=== PATIENT | female | born 1940 | race Caucasian/White ===

== ENCOUNTER 2017-12-23 13:54 | Day surgery (SDC) | payer MEDICARE, OTHER, SELFPAY ==
--- NOTE | 2017-12-23 08:20 | PM.PREOP ---
Pre-operative Note Interval Note Pre-op Check: Yes History & Physical Reviewed by Physician Changes: No
[2017-12-23 14:27] VITALS: BP 141/79; PULSE 67; RESP 15; TEMP 36.6; O2SAT 98; BMI 27.1
[2017-12-23] MEDS: PROPARACAINE 0.5% OPHTH SOL 2 DROPS EYE-OP (16:38)
[2017-12-23] MEDS: TRYPAN BLUE 0.5 ML SYRINGE INJ (18:08)
[2017-12-23] MEDS: BALANCED SALT IRRIG SOLN NO.2 500 ML, EPINEPHrine 1 MG IRR (18:09)
[2017-12-23] MEDS: LIDOCAINE 2% 4 ML, BUPIVACAINE 0.5% (PF) 4 ML, HYALURONIDASE 150 UNIT INJ (18:10)
[2017-12-23] MEDS: LIDOCAINE 1% W/EPI INJ 20 ML INJ (18:10)
[2017-12-23] MEDS: PHENYLEPHRINE/LIDOCAINE VIAL (OR) 0.2 ML EYE-OP (18:12)
[2017-12-23] MEDS: TRIAMCINOLONE 50 MG/5 ML VIAL INJ (18:13)
[2017-12-23] MEDS: MOXIFLOXACIN OPHTH DROPS 3 ML BOTTLE 2 DROPS INJ (18:13)
[2017-12-23] MEDS: BALANCED SALT IRRIG SOLN NO.2 15 ML IRRIG.SOLN IRR (18:14)
[2017-12-23] MEDS: CARBACHOL 1.5 ML VIAL INJ (18:14)
[2017-12-23] MEDS: HYALURONATE SODIUM 10 MG/ML SYRINGE INJ (18:14)
[2017-12-23] MEDS: CHONDROIDTIN/SOD HYALURONATE 1.05 ML SYRINGE INTRAOCULA (18:14)
[2017-12-23] MEDS: OFLOXACIN 0.3% OPHTH 5 ML 2 DROPS EYE-LEFT (18:15)
[2017-12-23] MEDS: NEOMYCIN/POLY/DEX OPHTH OINT 1 APPLIC EYE-LEFT (18:15)
[2017-12-23 18:35] VITALS: BP 147/72; PULSE 57; RESP 14; TEMP 36.6; O2SAT 100
--- NOTE | 2017-12-23 18:58 | SUR.PHASEII ---
[address]. Instructions reviewed w/pt/spouse. Deny having any questions. Site CDI.
--- NOTE | 2017-12-23 21:37 | P.OP_ITS ---
Operative Date/Time/Diagnoses Date of procedure: 12/23/17 Time of procedure: 17:45 Procedure & Clinicians Procedure: Date of service:December 23, 2017 Preoperative diagnoses: 1. Mature cortical Cataract wit need for capsular dye. 2. Hypertension. Postoperative diagnoses: 1. Complex Cataract Procedure: Phacoemulsification with posterior chamber intraocular lens implant and use of capsular dye. Surgeon: Sarah Ordaz MD Complications:None. Specimen: None Implant:ZCBOO+20.5 Blood loss: None Anesthesia: Retrobulbar with monitored standby Anesthesiologist: Costa Gould M.D. Description of procedure: Patient is a 77 year old female with decreased vision due to cataract which is affecting activities of daily living. She wants surgery to improve vision. She was taken to the operating room and given IV sedation. A retrobulbar block consisting of 6 cc of 2% xylocaine without epinephrine mixed half and half with 0.5% Marcaine with 1 cc of hyaluronidase added is placed between the medial and lateral 1/3 of the inferior orbital rim. Lid akinesia is obtain with 1% xylocaine with epinephrine infiltrated along the lid margin. The eye is manually massaged for 30 sec, prepped using Betadine solution, and draped in the usual sterile fashion. Temporal approach was made, a 1 mm side-port incision was made at the 12 oclock meridian. Phenylephrine 1.5% mixed with 1% xylocaine 0.2 cc was placed into the anterior chamber. Poor pupillary dilation is present and viscoelastic is use to enlarge the pupil. An air bubble is placed and Visudyne dye is placed in the anterior chamber to improve visibility due to lack of a red reflex.Viscoat followed by Eleni was then placed. A 2.6 mm clear incision with a 2.6 mm blade was placed at the 3 oclock meridian. A 360 degree capsulorrhexis style capsulotomy was then performed with a cystitome needle on a Healon. Hydrodelineation and hydrodissection were performed. The phacoemulsification unit is introduced, and sculpting notice used to groove the central lens. It is then removed in chopping mode. Epi nucleus is removed with epinuclear mode and irrigation aspiration was used to remove the peripheral cortex. Viscoeleastic was use multiple times to enlarge the pupil. The posterior capsule is polished. The intraocular lens is selected, inspected, power confirmed, and placed in the posterior chamber. The pupil [] constricted. The wound was stromally hydrated and tested for leaks, there was none and was left sutureless. Vigamox 0.1 cc was placed into the anterior chamber. Kenalog 0.2 cc was placed in the superior subconjunctival space. A drop of antibiotic and was placed and the eye was patched and shielded. The patient was stable and returned to the recovery room in excellent condition. Dictated by: Sarah Ordaz MD Copy to: [facility]
== END 2017-12-23 18:56 | disposition home or self-care (01) ==
LOC: OR 13:55
PROVIDERS: PCP Family Medicine; Visit Provider Ophthalmology
DX: H25.012 Cortical age-related cataract, left eye (principal); I10 Essential (primary) hypertension
CPT/HCPCS: J0171; J2704; J3301; J3470

== ENCOUNTER 2018-01-06 08:56 | Day surgery (SDC) | payer MEDICARE, OTHER, SELFPAY ==
--- NOTE | 2018-01-06 08:15 | PM.PREOP ---
Pre-operative Note Interval Note Pre-op Check: Yes History & Physical Reviewed by Physician Changes: No
[2018-01-06 09:32] VITALS: BP 135/66; PULSE 61; RESP 15; TEMP 36.3; O2SAT 98; BMI 27.1
[2018-01-06] MEDS: PROPARACAINE 0.5% OPHTH SOL 2 DROPS EYE-OP (09:34)
[2018-01-06] MEDS: CATARACT EYE COMPOUND (10 DROPS/SYRINGE) 3 DROPS EYE-OP (09:37)
[2018-01-06] MEDS: BALANCED SALT IRRIG SOLN NO.2 15 ML IRRIG.SOLN IRR (11:15)
[2018-01-06] MEDS: CARBACHOL 1.5 ML VIAL INJ (11:15)
[2018-01-06] MEDS: CHONDROIDTIN/SOD HYALURONATE 1.05 ML SYRINGE INTRAOCULA (11:15)
[2018-01-06] MEDS: HYALURONATE SODIUM 10 MG/ML SYRINGE INJ (11:15)
[2018-01-06] MEDS: NEOMYCIN/POLY/DEX OPHTH OINT 1 APPLIC EYE-RIGHT (11:16)
[2018-01-06] MEDS: MOXIFLOXACIN OPHTH DROPS 3 ML BOTTLE 2 DROPS INJ (11:16)
[2018-01-06] MEDS: OFLOXACIN 0.3% OPHTH 5 ML 2 DROPS EYE-RIGHT (11:16)
[2018-01-06] MEDS: TRYPAN BLUE 0.5 ML SYRINGE INJ (11:17)
[2018-01-06] MEDS: TRIAMCINOLONE 50 MG/5 ML VIAL INJ (11:17)
[2018-01-06] MEDS: BALANCED SALT IRRIG SOLN NO.2 500 ML, EPINEPHrine 1 MG IRR (11:17)
[2018-01-06] MEDS: PHENYLEPHRINE/LIDOCAINE VIAL (OR) 0.2 ML EYE-OP (11:17)
[2018-01-06] MEDS: LIDOCAINE 2% 4 ML, BUPIVACAINE 0.5% (PF) 4 ML, HYALURONIDASE 150 UNIT INJ (11:18)
[2018-01-06] MEDS: LIDOCAINE 1% W/EPI INJ 20 ML INJ (11:20)
[2018-01-06 11:49] VITALS: BP 150/77; PULSE 59; RESP 16; TEMP 36.2; O2SAT 98
--- NOTE | 2018-01-06 14:35 | PM.OP.1 ---
Operative Date/Time/Diagnoses Date of procedure: 01/06/18 Time of procedure: 11:00 Procedure & Clinicians Procedure: Date of service: January 06, 2018 Preoperative diagnoses: 1. Complex Cataract with poorly dilating pupil and need for capsular dye dear 2. Hypertension. 3. 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 Postoperative diagnoses: 1. Cataract removal with phacoemulsification and use of capsular dye with placement of posterior chamber intraocular lens implant. Procedure: Phacoemulsification with posterior chamber intraocular lens implant Surgeon: Sarah Ordaz MD Complications: None Specimen: None Implant: ZCBOO+21.0 Blood loss: None Anesthesia: Retrobulbar with monitored standby Anesthesiologist: Emmett Coates M.D. Description of procedure: Patient is a 69 year old female with decreased vision due to cataract which is affecting activities of daily living. She wants surgery to improve vision. She was taken to the operating room and given IV sedation. A retrobulbar block consisting of 6 cc of 2% xylocaine without epinephrine mixed half and half with 0.5% Marcaine with 1 cc of hyaluronidase added is placed between the medial and lateral 1/3 of the inferior orbital rim. Lid akinesia is obtain with 1% xylocaine with epinephrine infiltrated along the lid margin. The eye is manually massaged for 30 sec, prepped using Betadine solution, and draped in the usual sterile fashion. Temporal approach was made, a 1 mm side-port incision was made at the 12 oclock meridian. Phenylephrine 1.5% mixed with 1% xylocaine 0.2 cc was placed into the anterior chamber. There is a poorly dilated pupil and poor red reflex as well as a corneal scar previous herpetic infection. An air bubble was placed followed by Visudyne dye. Irrigation with BSS is performed. Viscoat followed by Healon was then placed. A 2.6 mm clear incision with a 2.6 mm blade was placed at the 3 oclock meridian. A 360 degree capsulorrhexis style capsulotomy was then performed with a cystitome needle on a Healon. Hydrodelineation and hydrodissection were performed with pupil maximized with viscoelastic. The phacoemulsification unit is introduced, and sculpting notice used to groove the central lens. It is then removed in chopping mode. Epi nucleus is removed with epinuclear mode and irrigation aspiration was used to remove the peripheral cortex. The posterior capsule is polished. The intraocular lens is selected, inspected, power confirmed, and placed in the posterior chamber. The pupil was constricted. The wound was stromally hydrated and tested for leaks, there was none and was left sutureless. Vigamox 0.1 cc was placed into the anterior chamber. Kenalog 0.2 cc was placed in the superior subconjunctival space. A drop of antibiotic and was placed and the eye was patched and shielded. The patient was stable and returned to the recovery room in excellent condition. Dictated by: Sarah Ordaz MD Copy to: [facility] Same procedure as scheduled: Yes Click Yes if Unassisted: Yes
== END 2018-01-06 11:48 | disposition home or self-care (01) ==
LOC: OR 08:58
PROVIDERS: PCP Family Medicine; Visit Provider Ophthalmology
PROC: (CPT 66982; principal; 2018-01-06 10:45)
DX: H25.11 Age-related nuclear cataract, right eye (principal); I10 Essential (primary) hypertension; H17.89 Other corneal scars and opacities
CPT/HCPCS: 66982; J0171; J2704; J3301; J3470

== ENCOUNTER → 2018-02-11 10:15 | Outpatient (CLI) | payer MEDICARE, OTHER, SELFPAY ==
--- NOTE | 2018-02-11 | DI.MG.S_ITS ---
BILATERAL DIGITAL SCREENING MAMMOGRAM 3D/2D WITH CAD: 02/11/2018 CLINICAL: Routine screening. Comparison is made to exams dated: 10/23/2016 mammogram, 09/28/2015 mammogram, and 01/16/2012 mammogram - [facility]. The tissue of both breasts is extremely dense, which lowers the sensitivity of mammography. Current study was also evaluated with a Computer Aided Detection (CAD) system. No significant masses, calcifications, or other findings are seen in either breast. There has been no significant interval change. IMPRESSION: NEGATIVE There is no mammographic evidence of malignancy. A 1 year screening mammogram is recommended. This exam was interpreted at Station ID: [id number]. NOTE: For mammograms, a report in lay terms will be sent to the patient. Approximately 15% of breast malignancies will not be visualized mammographically. In the management of a palpable breast mass, a negative mammogram must not discourage biopsy of a clinically suspicious lesion. Electronically Signed By: Sebas duncan/patti:02/11/2018 17:12:20 letter sent: Normal Exam ACR BI-RADS Category 1: Negative [id number]
== END ==
PROVIDERS: PCP Family Medicine; Visit Provider Family Medicine
DX: Z12.31 Encounter for screening mammogram for malignant neoplasm of breast (principal)
CPT/HCPCS: 77063; 77067

== ENCOUNTER 2019-04-18 08:01 | Emergency (ER) | payer MEDICARE, OTHER, SELFPAY ==
--- NOTE | 2019-04-18 08:16 | DI.RAD.S_ITS ---
PROCEDURE: XR WRIST LT MIN 3V INDICATIONS: injury l wrist/ fall TECHNIQUE: 3 views of the wrist were acquired. COMPARISON: None. FINDINGS: Bones: No dislocations. No suspicious bony lesions. There is a set of complicated comminuted fractures involving the distal radius and ulna, with both impaction and dorsal angulation at the fracture margins, which extend to include the articular surfaces. Scaphoid view: No trauma the scaphoid is found but a scaphoid dedicated views not obtained. Soft tissues: No suspicious soft tissue calcifications. IMPRESSION: Complex comminuted impacted and dorsally angulated intra-articular fractures involving the distal radius and ulna. Dictated by: Arpit Del Toro M.D. on 04/18/2019 at 8:55 Approved by: Arpit Del Toro M.D. on 04/18/2019 at 8:56
[2019-04-18 08:18] VITALS: BP 165/78; PULSE 62; RESP 15; TEMP 36.6; O2SAT 98
--- NOTE | 2019-04-18 08:29 | ED_ITS ---
HPI - Extremity Injury (Upper) General Chief Complaint: Extremity Injury, Upper Stated Complaint: thinks she broke left wrist Time Seen by Provider: 04/18/19 08:28 Source: patient Mode of arrival: Ambulatory Limitations: no limitations History of Present Illness HPI narrative: Patient is a 78-year-old female who presents with left wrist pain after slipping and falling on the ice. She denies numbness and tingling she is able to move her fingers. She does have an obvious distal deformity. She does not think she hit her head she is not on any anti-platelet or anticoagulation medication. She has no neck pain. No shoulder pain. She is right-hand dominant. MD complaint: injury to: left and wrist Onset (ago): minute(s) Related Data Home Medications Medication Instructions Recorded Confirmed lisinopril [Zestril] 15 mg PO DAILY #0 04/28/11 08/06/18 atorvastatin [Lipitor] 20 mg PO DAILY 01/06/18 08/06/18 Respironics Dreamstation CPAP #1 ea 08/09/18 08/09/18 Previous Rx's Medication Instructions Recorded hydrocodone-acetaminophen [Page] 1 tab PO Q6H PRN #10 tab 04/18/19 Allergies Allergy/AdvReac Type Severity Reaction Status Date / Time No Known Drug Allergies Allergy Verified 12/23/17 14:20 Review of Systems Review of Systems Narrative: GENERAL: Denies chills,fever HEENT: Denies throat pain RESPIRATORY: Denies dyspnea, cough, wheezing CARDIOVASCULAR: Denies chest pain, palpitations GASTROINTESTINAL: Denies nausea, vomiting MUSCULOSKELETAL: See HPI SKIN: No rash, no laceration, no pruritus NEUROLOGIC: Denies weakness, dizziness, headache, numbness 8 point review of systems is negative except for those stated above and HPI Patient History Medical History Hyperlipidemia (Chronic) Hypertension (Chronic) Obstructive sleep apnea of adult (Chronic) Surgical History H/O cataract removal with insertion of prosthetic lens (Resolved) Social History marital status: details: mariam Wood, lives in [place] household members: spouse lives independently: Yes caregiver/support person: No housing: house Smoking Status: Never smoker Exam Initial Vital Signs Initial Vital Signs: Vital Signs Temperature 97.8 F 04/18/19 08:18 Pulse Rate 62 04/18/19 08:18 Respiratory Rate 15 04/18/19 08:18 Blood Pressure 165/78 H 04/18/19 08:18 Pulse Oximetry 98 04/18/19 08:18 GENERAL: Alert pleasant well-appearing female HEENT: Head atraumatic,EOMI, pupils reactive, face symmetric NECK: No vertebral tenderness no step-offs full range of motion CARDIOVASCULAR: Regular rate and rhythm without murmurs, rubs or gallops. RESPIRATORY: Breath sounds equal bilaterally, no wheezes rales or rhonchi. EXTREMITIES: Normal range of motion, no clubbing or edema. Neurovascularly intact. Left distal wrist deformity good strong radial pulse is moving fingers no elbow pain no shoulder pain or deformity no clavicle step-off NEUROLOGICAL: Alert and oriented x4.Normal gait and speech. SKIN: Warm, dry, no laceration, no petechiae, no rashes or lesions. Procedures Nerve Block Nerve Block 1: Time out performed: Yes Local Anesthetic: lidocaine 2% and with epi Amount of anesthesia used (mL): 10 Side: left Nerve Blocks: hematoma block Procedure Successful: Yes Patient Tolerated Procedure: Well Complications: none Orthopedic Fracture Reduction Fracture #1: Time Out Performed: Yes Side: left Fracture Reduction Location: radius and ulna Technique: direct manipulation Post Reduction X-rays Demonstrate: acceptable reduction Post-reduction neuro exam: intact Post-reduction vascular exam: intact Splint Applied: Yes Patient Tolerated Procedure: Well Orthopedic Splinting/Casting Injury #1: Side: left Upper Extremity Injury Location: forearm Upper Extremity Immobilizer: sling/shoulder immobilizer and sugar tong splint Post splinting neuro exam: intact Post splinting vascular exam: intact Placed by: Provider Course Orders Ordered: ED Orders 04/18/19 08:16 XR wrist LT min 3V Stat 04/18/19 09:46 XR wrist LT 2V Stat Discontinued Medications Lidocaine HCl (Xylocaine 1%) 10 ml INJ NOW ONE Stop: 04/18/19 08:54 Last Admin: 04/18/19 09:26 Dose: Not Given Documented by: BTONER Lidocaine/Epinephrine (Xylocaine 2% W/Epi) 1 ml INJ INTRA-OP ONE Stop: 04/18/19 09:23 Last Admin: 04/18/19 09:25 Dose: 1 ml Documented by: BTONER Vital Signs Vital signs: Vital Signs - 8 hr 04/18/19 08:18 04/18/19 11:11 Temperature 97.8 F Pulse Rate 62 81 Respiratory Rate 15 16 Blood Pressure 165/78 H 174/85 H Pulse Oximetry 98 99 MDM - Extremity Injury (Upper) Imaging Data Extremity x-ray #1: Radiologist's Impression: PROCEDURE: XR WRIST LT MIN 3V INDICATIONS: injury l wrist/ fall TECHNIQUE: 3 views of the wrist were acquired. COMPARISON: None. FINDINGS: Bones: No dislocations. No suspicious bony lesions. There is a set of complicated comminuted fractures involving the distal radius and ulna, with both impaction and dorsal angulation at the fracture margins, which extend to include the articular surfaces. Scaphoid view: No trauma the scaphoid is found but a scaphoid dedicated views not obtained. Soft tissues: No suspicious soft tissue calcifications. IMPRESSION: Complex comminuted impacted and dorsally angulated intra-articular fractures involving the distal radius and ulna. Dictated by: Arpit Del Toro M.D. on 04/18/2019 at 8:55 Extremity x-ray #2: Radiologist's Impression: PROCEDURE: XR WRIST LT 2V INDICATIONS: post reduction TECHNIQUE: 2 views of the wrist were acquired. COMPARISON: [facility], , XR WRIST LT MIN 3V, 04/18/2019, 8:30. FINDINGS: Mild interval improvement in the alignment of the distal radius fracture is evident, status post closed reduction. There continues to be a mild dorsal impacted distal radial metaphyseal fracture. No obvious intra-articular involvement is appreciated. The distal fracture is also evident, which is now in essentially anatomic position. Soft tissue swelling about the wrist is evident. Degenerative changes involving the basal joint of the thumb are present. IMPRESSION: Improved alignment of the distal radius and ulna fractures, status post closed reduction. Dictated by: Sacha Tony M.D. on 04/18/2019 at 9:01 Discharge Plan Departure Patient Disposition: Home Clinical Impression: Hyperlipidemia Fracture of left wrist Qualifiers: Encounter type: initial encounter Fracture type: closed Qualified Code(s): S62.102A - Fracture of unspecified carpal bone, left wrist, initial encounter for closed fracture Discharge Date/Time: 04/18/19 11:10 Instructions: DI for Distal Radius Fracture Activity Restrictions/Additional Instructions: *You have been diagnosed with left wrist fracture *What to do: There is high probability that you may require surgery. Keep arm in splint at all times, wear sling as needed. May ice 20-30 minutes at a time through the splint. *Continue to take medications as directed Tylenol 650 mg every 4-6 hours if needed for [id number] pain Page 0.5-1 tab every 6 hours if needed for severe pain especially at night *Follow up with your primary care provider in 2-3 days call orthopedics today to schedule follow-up appointment this week or next week *Return to ER if you should have increasing numbness tingling, pain not controlled unable to move fingers [or] any new, worsening or concerning symptoms CONTROLLED SUBSTANCE DISCHARGE (Narcotoic/benzodiazepine/Flexeril/Phenergan) 1. You have been prescribed narcotic medications, it does have acetaminophen/Tylenol/paracetamol in it so do not take extra Tylenol or Tylenol containing products TRAMADOL DOES NOT CONTAIN TYLENOL 2. Please understand that we cannot provide further refills of narcotics, benzodiazepines or controlled substances through the ED and her pain management will need to be through your provider. 3. While on these medications you cannot drive or operate heavy machinery. 4. You cannot sign legal documents or perform any duties such as this. 5. As long as you're taking opiate pain medications he should also be taking a stool softener such as Colace, Dulcolax, MiraLAX or prune juice, to help avoid constipation. Prescriptions: New hydrocodone-acetaminophen [Page] 5-325 mg tablet 1 tab PO Q6H PRN (Reason: pain) Qty: 10 RF: 0 No Action lisinopril [Zestril] 5 MG tablet 15 mg PO DAILY Qty: 0 RF: 0 atorvastatin [Lipitor] 20 mg Tablet 20 mg PO DAILY RF: 0 (DME) Respironics Dreamstation CPAP Qty: 1 RF: 0 Referrals: [facility] [Provider Group] Huang Dodson MD [Primary Care Provider] -
[2019-04-18] MEDS: LIDOCAINE 2% W/EPI INJ 1 ML INJ (09:25)
--- NOTE | 2019-04-18 09:46 | DI.RAD.S_ITS ---
PROCEDURE: XR WRIST LT 2V INDICATIONS: post reduction TECHNIQUE: 2 views of the wrist were acquired. COMPARISON: [facility], CR, XR WRIST LT MIN 3V, 04/18/2019, 8:30. FINDINGS: Mild interval improvement in the alignment of the distal radius fracture is evident, status post closed reduction. There continues to be a mild dorsal impacted distal radial metaphyseal fracture. No obvious intra-articular involvement is appreciated. The distal fracture is also evident, which is now in essentially anatomic position. Soft tissue swelling about the wrist is evident. Degenerative changes involving the basal joint of the thumb are present. IMPRESSION: Improved alignment of the distal radius and ulna fractures, status post closed reduction. Dictated by: Sacha Tony M.D. on 04/18/2019 at 9:01 Approved by: Sacha Tony M.D. on 04/18/2019 at 9:02
[2019-04-18 11:11] VITALS: BP 174/85; PULSE 81; RESP 16; O2SAT 99
== END 2019-04-18 11:10 | disposition home or self-care (01) ==
PROVIDERS: Emergency Provider Emergency Medicine; PCP Family Medicine
DX: S52.502A Unspecified fracture of the lower end of left radius, initial encounter for closed fracture (principal); S52.602A Unspecified fracture of lower end of left ulna, initial encounter for closed fracture; E78.5 Hyperlipidemia, unspecified; W00.0XXA Fall on same level due to ice and snow, initial encounter
CPT/HCPCS: 25605; 29125; 64450; 73100; 73110; 99284

== ENCOUNTER → 2019-04-25 09:52 | Outpatient (CLI) | payer MEDICARE, OTHER, SELFPAY ==
[2019-04-25 10:51] LABS: Add Manual Diff / Slide Review NO; Basophils Absolute Auto 0 /uL (0-100); Basophils Percent Auto 0.8 % (0-2); Eosinophils Absolute Auto 200 /uL (0-450); Eosinophils Percent Auto 3.6 % (2-4); Hematocrit 38.1 % (36-46); Hemoglobin 13.3 g/dL (12.0-16.0); Lymphocytes Absolute Auto 1900 /uL (1100-4500); Mean Corpuscular Hemoglobin 31.3 PG (26-34); Mean Corpuscular Volume 89.3 fL (80-100); Monocytes Absolute Auto 400 /uL (0-900); Monocytes Percent Auto 7.8 % (3-14); Neutrophils Absolute Auto 2800 /uL (1500-7000); Neutrophils Percent Auto 52.8 % (50-75); Platelet Count 256 X10^3/uL (150-400); Red Blood Cell Count 4.27 X10^6/uL (4.0-5.2); Red Cell Distribution Width 13.1 % (11.6-14.8); White Blood Cell Count 5.4 X10^3/uL (4.5-11.0)
== END ==
PROVIDERS: PCP Family Medicine; Visit Provider Orthopaedic Surgery Adult Reconstructive Orthopaedic Surgery
DX: Z01.812 Encounter for preprocedural laboratory examination (principal); Z01.818 Encounter for other preprocedural examination
CPT/HCPCS: 36415; 85025; 93005; 93010

== ENCOUNTER → 2020-11-26 08:40 | Outpatient (CLI) | payer MEDICARE, OTHER, SELFPAY ==
[2020-11-26 10:21] LABS: Cholesterol 199 mg/dL (140-199); HDL Cholesterol 50 mg/dL (40-60); LDL Cholesterol Calculated 114 mg/dL (<100); Triglycerides 176 mg/dL (35-150)
== END ==
PROVIDERS: PCP Family Medicine; Referring Provider Family Medicine; Visit Provider Family Medicine
DX: E78.5 Hyperlipidemia, unspecified (principal)
CPT/HCPCS: 36415; 80061

== ENCOUNTER 2021-10-07 14:03 | Emergency (ER) | payer MEDICARE, OTHER, SELFPAY ==
[2021-10-07 14:24] VITALS: BP 194/85; PULSE 73; RESP 14; TEMP 36.5; O2SAT 97; BMI 27.3
--- NOTE | 2021-10-07 14:27 | DI.RAD.S_ITS ---
PROCEDURE: XR HIP W PEL IF DONE RT 2V INDICATIONS: Right hip pain. TECHNIQUE: AP pelvis with lateral view(s) of the right hip(s). COMPARISON: None. FINDINGS: Bones: No fractures or dislocations. Moderate right hip joint osteoarthritic changes are seen. No evidence of avascular necrosis of femoral head. Pelvic ring appears intact. No suspicious bony lesions. Soft tissues: The visualized bowel gas pattern is normal. No suspicious soft tissue calcifications. IMPRESSION: Moderate right hip joint osteoarthritis. No acute fracture or dislocation. No evidence of avascular necrosis. Dictated by: Emiliano Ferrari M.D. on 10/07/2021 at 15:00 Approved by: Emiliano Ferrari M.D. on 10/07/2021 at 15:01
--- NOTE | 2021-10-07 17:11 | DI.RAD.S_ITS ---
PROCEDURE: XR LUMBAR SPINE 2-3V INDICATIONS: sciatica pain, arthrosis? TECHNIQUE: 3 views of the lumbar spine were acquired. COMPARISON: None. FINDINGS: Bones: 5 [id number] vertebrae are present. Rightward curvature of the thoracolumbar spine. There are multilevel degenerative changes. Vertebral body heights are normal. There is facet arthrosis in the lower lumbar spine. Grade 1 anterolisthesis of L4-5 and L5-S1. The aorta has atherosclerotic calcifications with no aneurysmal dilatation. Soft tissues: Overlying bowel gas pattern is normal. No suspicious soft tissue calcifications. IMPRESSION: 1. No acute abnormality. 2. Multilevel degenerative changes of the lumbar spine. 3. Facet arthrosis in the lower lumbar spine with grade 1 anterolisthesis of L4-5 and L5-S1. Dictated by: Gianni Diaz M.D. on 10/07/2021 at 16:40 Approved by: Gianni Diaz M.D. on 10/07/2021 at 16:42
[2021-10-07] MEDS: IBUPROFEN 400 MG TABLET 600 MG PO (17:18)
[2021-10-07] MEDS: HYDROCODONE/ACET 5/325 TABLET 1 TAB PO (17:18)
[2021-10-07] MEDS: ACETAMINOPHEN 325 MG TABLET PO (17:19)
[2021-10-07 18:01] VITALS: BP 166/79; PULSE 56; RESP 18; O2SAT 98
--- NOTE | 2021-10-07 18:05 | ED_ITS ---
HPI - Extremity Problem <Raven Zhao, [facility] - Last Filed: 10/07/21 19:00> General Chief complaint: Extremity Problem,Nontraumatic Stated complaint: Right hip pain Time Seen by Provider: 10/07/21 16:56 Source: patient Mode of arrival: Ambulatory History of Present Illness HPI Narrative: This is an 79-year-old female who presents to the emergency department complaining of right-sided hip pain with shooting pain across the back of her hip and the front of her groin on the right side since yesterday. 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 She denies any extension beyond her knee, states that her right leg ?when out on her ?earlier today when she was walking. She endorses having a walker and a cane at home and has been using them to ambulate since her leg has given out a few times. Patient denies any recent fall or trauma, states that earlier today she had sharp shooting pain across her hip and down her leg which caused her to fall down, she denies any injury from that fall endorses that her right leg just gave out. She denies any weakness or sensation changes at rest, states that her pain occurs at of no where, she denies any history of hip pain in the past. She endorses a history of low back pain but denies any significance to it. She states that she has been taking Tylenol 650 mg at night to help her sleep. 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 She denies any incontinence, denies any new sensation changes. Related Data Home Medications Medication Instructions Recorded Confirmed lisinopril 5 mg tablet (Zestril) 15 mg PO DAILY ##0 04/28/11 04/10/21 atorvastatin 20 mg tablet (Lipitor) 20 mg PO DAILY 01/06/18 04/10/21 Respironics Dreamstation CPAP #1 ea 08/09/18 04/10/21 Previous Rx's Medication Instructions Recorded diclofenac sodium 1 % topical gel 4 g topical QID PRN back pain/knee 10/07/21 (Arthritis Pain (diclofenac)) pain #100 grams hydrocodone 5 mg-acetaminophen 325 1 tab PO Q6HR PRN pain #14 tabs 10/07/21 mg tablet lidocaine 5 % topical patch 1 patch topical BID PRN pain #15 ea 10/07/21 (Lidoderm) Allergies Allergy/AdvReac Type Severity Reaction Status Date / Time No Known Drug Allergies Allergy Verified 10/07/21 14:24 Review of Systems <CATHY Hoffmann - Last Filed: 10/07/21 19:00> Review of Systems Narrative: General: denies fever, chills Head/Neck: denies headache, neck pain Eyes: denies visual changes, eye pain Cardio: denies chest pain, palpitations Respiratory: denies shortness of breath, cough GI: denies abdominal pain, nausea, vomiting, or diarrhea : denies dysuria, hematuria or flank pain my denies any con MSK: denies new joint pain, muscle weakness or swelling, endorses low back pain, right hip pain, sharp shooting pain from the back of her right hip across front and down her leg while walking . Skin: denies rash, itching or wound Neuro: denies numbness, tingling, dizziness Patient History <CATHY Hoffmann - Last Filed: 10/07/21 19:00> Medical History (Updated 10/07/21 @ 18:13 by CATHY Hoffmann) Hyperlipidemia Hypertension Obstructive sleep apnea of adult Surgical History H/O cataract removal with insertion of prosthetic lens Social History marital status: details: mariam Wood, lives in [place] household members: spouse lives independently: Yes caregiver/support person: No housing: house Smoking Status: Never smoker Smoking Status: Never smoker Substance Use Type: does not use Exam <CATHY Hoffmann - Last Filed: 10/07/21 19:00> Narrative Exam Narrative: Independently reviewed vitals signs and nursing notes. General: cooperative, comfortable, in no acute distress, well groomed Head: atraumatic, symmetrical facial expressions Neck: supple Eyes: equal round and reactive, EOMI, conjunctiva normal Nose: nares patent, no rhinorrhea Mouth/Throat: moist mucus membranes Cardiovascular: regular rate and rhythm, no peripheral edema, warm extremities Respiratory: normal effort, able to speak in complete sentences, no audible wheezing, stridor, or rales. No retractions or tachypnea. GI: abdomen soft, nontender to palpation, nondistended, no masses, no exquisite tenderness with exam, without guarding or rebound. MSK: moves all extremities, neurovascularly intact, no weakness, normal tone, no tenderness along her lumbar spine, tenderness to the paraspinal musculature to the right of her lumbar spine, patient is ambulatory with steady gait, no unilateral weakness Skin: brisk capillary refill, no rash, no erythema Neuro: normal speech and cognition, A&O x3 Psych: mental status is grossly normal, congruent mood, normal affect, pleasant and cooperative Initial Vital Signs Initial Vital Signs: Vital Signs Temperature 97.7 F 10/07/21 14:24 Pulse Rate 73 10/07/21 14:24 Respiratory Rate 14 10/07/21 14:24 Blood Pressure 194/85 H 10/07/21 14:24 Pulse Oximetry 97 10/07/21 14:24 Oxygen Delivery Method 10/07/21 14:24 <Ana Moore DO - Last Filed: 10/08/21 07:40> Initial Vital Signs Initial Vital Signs: Vital Signs Temperature 97.7 F 10/07/21 14:24 Pulse Rate 73 10/07/21 14:24 Respiratory Rate 14 10/07/21 14:24 Blood Pressure 194/85 H 10/07/21 14:24 Pulse Oximetry 97 10/07/21 14:24 Oxygen Delivery Method 10/07/21 14:24 Course <CATHY Hoffmann - Last Filed: 10/07/21 19:00> Orders Ordered: Discontinued Medications Acetaminophen (Acetaminophen 325 Mg Tablet) 325 mg PO NOW ONE Stop: 10/07/21 17:13 Last Admin: 10/07/21 17:19 Dose: 325 mg Documented By: AT Hydrocodone Bitart/Acetaminophen (Hydrocodone/Acet 5/325 Tablet) 1 tab PO NOW ONE Stop: 10/07/21 17:12 Last Admin: 10/07/21 17:18 Dose: 1 tab Documented By: AT Hydrocodone Bitart/Acetaminophen (Hydrocodone/Acet 5/325 Prepack) 1 bottle MISC SEEINSTR ONE Stop: 10/07/21 18:05 Last Admin: 10/07/21 18:10 Dose: 1 bottle Documented By: AT Ibuprofen (Ibuprofen 400 Mg Tablet) 600 mg PO NOW ONE Stop: 10/07/21 17:12 Last Admin: 10/07/21 17:18 Dose: 600 mg Documented By: AT Vital Signs Vital signs: Vital Signs - 8 hr 10/07/21 14:24 10/07/21 18:01 Temperature 97.7 F Pulse Rate 73 56 L Respiratory Rate 14 18 Blood Pressure 194/85 H 166/79 H Pulse Oximetry 97 98 Oxygen Delivery Method Room Air Room Air <Ana Moore DO - Last Filed: 10/08/21 07:40> Orders Ordered: Discontinued Medications Acetaminophen (Acetaminophen 325 Mg Tablet) 325 mg PO NOW ONE Stop: 10/07/21 17:13 Last Admin: 10/07/21 17:19 Dose: 325 mg Documented By: AT Hydrocodone Bitart/Acetaminophen (Hydrocodone/Acet 5/325 Tablet) 1 tab PO NOW ONE Stop: 10/07/21 17:12 Last Admin: 10/07/21 17:18 Dose: 1 tab Documented By: AT Hydrocodone Bitart/Acetaminophen (Hydrocodone/Acet 5/325 Prepack) 1 bottle MISC SEEINSTR ONE Stop: 10/07/21 18:05 Last Admin: 10/07/21 18:10 Dose: 1 bottle Documented By: AT Ibuprofen (Ibuprofen 400 Mg Tablet) 600 mg PO NOW ONE Stop: 10/07/21 17:12 Last Admin: 10/07/21 17:18 Dose: 600 mg Documented By: AT Vital Signs Vital signs: Vital Signs - 8 hr 10/07/21 14:24 10/07/21 18:01 Temperature 97.7 F Pulse Rate 73 56 L Respiratory Rate 14 18 Blood Pressure 194/85 H 166/79 H Pulse Oximetry 97 98 Oxygen Delivery Method Room Air Room Air MDM - Extremity (Nontraumatic) <CATHY Hoffmann - Last Filed: 10/07/21 19:00> Imaging Data lumbar spine: Radiologist's Impression: PROCEDURE:? XR LUMBAR SPINE 2-3V ? INDICATIONS:? sciatica pain, arthrosis? ? TECHNIQUE:? 3 views of the lumbar spine were acquired.? ? COMPARISON:? None. ? FINDINGS:? ? Bones:? 5 [id number] vertebrae are present.? Rightward curvature of the thoracolumbar spine.? There are multilevel degenerative changes.? Vertebral body heights are normal.? There is facet arthrosis in the lower lumbar spine.? Grade 1 anterolisthesis of L4-5 and L5-S1.? The aorta has atherosclerotic calcifications with no aneurysmal dilatation.? ? Soft tissues:? Overlying bowel gas pattern is normal.? No suspicious soft tissue calcifications.? ? ? IMPRESSION:? 1. No acute abnormality. 2. Multilevel degenerative changes of the lumbar spine. 3. Facet arthrosis in the lower lumbar spine with grade 1 anterolisthesis of L4- 5 and L5-S1.? ? ? Dictated by: Gianni Diaz M.D. on 10/07/2021 at 16:40 ? ? Approved by: Gianni Diaz M.D. on 10/07/2021 at 16:42 ? hip right: Radiologist's Impression: PROCEDURE:? XR HIP W PEL IF DONE RT 2V ? INDICATIONS:? Right hip pain. ? TECHNIQUE:? AP pelvis with lateral view(s) of the right hip(s).? ? COMPARISON:? None. ? FINDINGS:? ? Bones:? No fractures or dislocations.? Moderate right hip joint osteoarthritic changes are seen.? No evidence of avascular necrosis of femoral head.? Pelvic ring appears intact.? No suspicious bony lesions.? ? Soft tissues:? The visualized bowel gas pattern is normal.? No suspicious soft tissue calcifications.? ? ? IMPRESSION:? Moderate right hip joint osteoarthritis.? No acute fracture or dislocation.? No evidence of avascular necrosis. ? ? Dictated by: Emiliano Ferrari M.D. on 10/07/2021 at 15:00 ? ? Approved by: Emiliano Ferrari M.D. on 10/07/2021 at 15:01 ? MDM Narrative Medical decision making narrative: This is a pleasant 81-year-old female who presents to the emergency department with right-sided hip pain which she states started a couple days ago without any history of this in the past. 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 She does not have any help with this but insists that she must status active and does not have any days off. Hip x-ray was obtained after triage per nurse initiated order. Her hip x-ray does show moderate right hip osteoarthritis but patient's description of her pain sounded more like sciatica with radiation coming from her lumbar spine. She endorses history of low back pain but patient endorses that she has several shooting pain across the front and posterior of her right hip which sounds a lot like sciatica. She states that her legs ?went out? at least 2 times where she ended up falling down. She has been using a cane and a walker for ambulation. Discussed getting an x-ray of her lumbar spine to she knows what she is working with and how to move forward with either physical therapy, pain management, a chiropractor, or other. She has a history of seeing Dr. 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 Lumbar x-ray shows no acute abnormality, multilevel degenerative changes of the lumbar spine, facet arthrosis in the lower lumbar spine with grade 1 anterolisthesis of L4-5 and L5-S1. This is likely where her radiculopathy is coming from, she was given a copy of her x-rays that she may take with her to her chiropractor as needed. Encouraged her follow-up with primary care provider regarding pain control. She was given lidocaine patches, hydrocodone for breakthrough pain, topical diclofenac gel and encouraged to treat her pain at home with topical let gel 80s, Tylenol, ibuprofen with food and water as she has no history of GI bleeding, ulcer, or abdominal pain after ibuprofen. Patient was given hydrocodone in the emergency department without any mental status changes, weakness, or altered mentation. She has not had a new incontinence, she has had some sharp shooting pain which caused her leg to go out. Encouraged her to follow-up with PCP for physical therapy. Multiple etiologies of back pain considered including; Epidural abscess, cauda equina, mass occupying lesion, lumbar fracture, intra-abdominal pathology chronic neuropathic pain and other considered. Patient is appropriate and amenable to discharge home. Vital signs are stable on repeat examination is unremarkable. Patient has been informed of results. Patient has been given strict return to ER precautions for any new or worsening symptoms. Patient understands to follow up closely with outpatient providers as instructed. Patient understands plan and agrees to discharge home. All questions and concerns answered at this time. Discharge Plan Departure Patient Disposition: Home Clinical Impression: Sciatic leg pain, Facet arthropathy Degenerative joint disease (DJD) of lumbar spine Qualifiers: Spinal osteoarthritis complication: with radiculopathy Qualified Code(s): M47.26 - Other spondylosis with radiculopathy, lumbar region Instructions: DI for Osteoarthritis, DI for Back Pain With Sciatica Activity Restrictions/Additional Instructions: *You have been diagnosed with hip pain with sciatica symptoms. Your x-ray of your hip does show moderate amount of osteoarthritis. Anti-inflammatories like ibuprofen or the most helpful for this pain however it is not always tolerated by people's stomach. Please eat food and drink water if you are going to take ibuprofen, and take 600 mg every 6 hours. You can take Tylenol 650 mg every 6 hours as needed for your pain, it is safe to take with ibuprofen. You can take one hydrocodone every 6 hours in addition to this and still be safe. Please continue to use lidocaine patches, you can try topical Voltaren gel for your left knee or your right hip. Please follow-up with your chiropractor as planned, if you have ongoing pain, please follow-up with Dr. Mcallister for a plan moving forward. Physical therapy might be really helpful for you. Please try and stay active but don't over do it. Please be safe as your 1st priority, have a walker or a cane with you at all times or your walking if you are fearful about your leg giving out. *What to do: *Please continue to take your regular medications as directed. [x ] New medication prescriptions sent to your pharmacy: [ [facility]] [ ] New medication written as a paper prescription [ ] No new medications given *Please follow up with your primary care provider in 2-3 days, call for an appointment. Let them know you were seen in the Emergency Department and that we asked that you be seen for follow-up. We will electronically transmit a record of today's note if your PCP is in our system *If you do not have a primary care provider please contact [phone] to establish care with one of the [facility] primary care providers. *Return to Emergency Department if you should have any new, worsening or concerning symptoms, such as [fever greater than 101F, chills, worsening pain, persistent vomiting or other bothersome symptoms] Prescriptions: New hydrocodone-acetaminophen 5-325 mg tablet 1 tab PO Q6HR PRN (Reason: pain) Qty: 14 0RF diclofenac sodium [Arthritis Pain (diclofenac)] 1 % gel 4 g topical QID PRN (Reason: back pain/knee pain) Qty: 100 0RF Rx Instructions: Apply 2 g to upper extremities and 4 g to lower body up to 4 times daily. Use the applicator that it comes with for dosing. lidocaine [Lidoderm] 5 % adhesive patch,medicated 1 patch topical BID PRN (Reason: pain) Qty: 15 0RF Rx Instructions: leave on most painful area for up to 12 hrs No Action lisinopril [Zestril] 5 MG tablet 15 mg PO DAILY Qty: 0 atorvastatin [Lipitor] 20 mg Tablet 20 mg PO DAILY (DME) Respironics Dreamstation CPAP Qty: 1 Dose Instruction: As directed Label Comments: Pressure: 8-16 cmH2O DME: [facility] Rx Instructions: As directed Referrals: Jeremy Card DC [Non-Staff] - Swathi Mcallister MD [Primary Care Provider] - Visit Report Forms: Patient Portal/API <Ana Moore DO - Last Filed: 10/08/21 07:40> Cosign ED Attending Johnature Attestation: I was immediately available in the department for consultation. Documentation has been reviewed. I agree with assessment and plan.
[2021-10-07] MEDS: HYDROCODONE/ACET 5/325 PREPACK 1 BOTTLE MISC (18:10)
== END 2021-10-07 18:12 | disposition home or self-care (01) ==
PROVIDERS: Emergency Provider Nurse Practitioner Critical Care Medicine; PCP Family Medicine
DX: M54.31 Sciatica, right side (principal); M47.26 Other spondylosis with radiculopathy, lumbar region
CPT/HCPCS: 72100; 73502; 99283

== ENCOUNTER 2022-02-25 09:45 | Outpatient (RCR) | payer MEDICARE, OTHER, SELFPAY ==
--- NOTE | 2021-12-10 17:13 | PT.OIE ---
Current Diagnoses Difficulty in walking, not elsewhere classified (12/10/21) Repeated falls (12/10/21) Past Medical History (Last Reviewed 10/07/21 @ 18:09 by CATHY Hoffmann) Hyperlipidemia Hypertension Obstructive sleep apnea of adult Past Surgical History (Last Reviewed 10/07/21 @ 18:09 by CATHY Hoffmann) H/O cataract removal with insertion of prosthetic lens Visit Care Team Role Provider Type Swathi Mcallister MD Primary Care Provider Physician [facility] Address: [address] [place] [address] [place], [address] Email: [email or web address] Trevor Gomez MD Attending Provider Physician Referring Provider Specialty: [facility] Address: [address] [place] [address], [address] Email: [email or web address] Physical Therapy Initial Evaluation PT-OP-A Visit Information Start: 12/08/21 13:16 Freq: Status: Active Protocol: Document 12/10/21 16:00 AW (Rec: 12/08/21 13:28 AW [id number]) Out-Patient Physical Therapy Visit Information Visit Information Visit Type Initial Evaluation Visit Start Time 15:15 Visit Stop Time 16:00 Total Visit Minutes 45 Visit Number 04/24 Evaluation Information Evaluation Date 12/10/21 PT-OP-B Current Condition Start: 12/08/21 13:16 Freq: Status: Active Protocol: Document 12/10/21 16:00 AW (Rec: 12/08/21 13:28 AW [id number]) Current Condition History of Current Condition Onset Date September 2021 Current Complaints R leg feels unsteady, gives out History of Current Condition Susana (david Lambert) lives at [facility] with her . 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 Susana started having R hip and low back pain in September which reached a peak early October. She was seen in the ED and had imaging as below. She started using a walker due to pain and a sense of instability. She upgraded to a walking stick eventually and is now walking without a device. She now has little to no pain but states her right leg gives out on her and feels wobbly. She has been having numbness along her right medial knee. She is falling ~once per week. Prior Treatments and Tests - R hip and lumbar spine x- rays at ED on 10/07/21. R hip image shows moderate OA. Lumbar spine image shows grade 1 anterolisthesis L4-L5 and L5-S1 and multilevel degenerative changes. 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 Treatment Goals Patient/Caregiver Goals Continue to walk without assistive device. Reduce falls frequency. Increase confidence in right leg. 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 Pt is very motivated to stay active. PT-OP-C Subjective Start: 12/08/21 13:16 Freq: Status: Active Protocol: Document 12/10/21 16:00 AW (Rec: 12/10/21 16:31 AW [id number]) Patient Questionnaires ABC- Activity Specific Balance Confidence Scale ABC Score 80 ABC Functional Impairment 20 to <40% Impaired (Score 61- 80) Dizziness Handicap Inventory DHI Score not scored. scanned to EMR OP-PT Pain Assessment Pain Assessment Grid Paper Pain Assessment Grid Completed Yes: Pt reports 1/10 B knee pain PT-OP-D Balance Start: 12/08/21 13:16 Freq: Status: Active Protocol: Document 12/10/21 16:00 AW (Rec: 12/10/21 16:31 AW [id number]) Balance Tests Single Limb Standing Single Limb- Right 3 sec unsteady with UE support and + Trendelenberg Single Limb- Left 5 sec unsteady with UE support and + Trendelenberg PT-OP-E Functional Tests Start: 12/08/21 13:16 Freq: Status: Active Protocol: Document 12/10/21 16:00 AW (Rec: 12/10/21 16:31 AW [id number]) Functional Tests Dynamic Gait Index (DGI) Score 13 DGI Impairment Rating 40 to <60% Impaired (Score 10- 14) PT-OP-F Manual Assessment Start: 12/08/21 13:16 Freq: Status: Active Protocol: Document 12/10/21 16:00 AW (Rec: 12/10/21 16:39 AW [id number]) Manual Assessments Joint Mobility Assessment Joint Mobility Assessment Slight crepitus bilateral knees. Scour test negative in both hips. Good PA excursion in all lumbar segments. PT-OP-G Mobility & Gait Start: 12/08/21 13:16 Freq: Status: Active Protocol: Document 12/10/21 16:00 AW (Rec: 12/10/21 16:39 AW [id number]) OP Gait Assessment Comments Gait Comments Pt ambulates without device. She vaults over the right LE and has decreased RLE stance time. Right foot is excessively pronated and pt has reduced heelstrike bilaterally. Right hip in slight ER. Stair Climbing Evaluation Comments Stair Climbing Comments Step-to pattern with B rails. Pt does not need to navigate stairs in home environment but notes being extra cautious with patterning on curbs. PT-OP-H Neuro Start: 12/08/21 13:16 Freq: Status: Active Protocol: Document 12/10/21 16:00 AW (Rec: 12/10/21 16:39 AW [id number]) Sensation Evaluation Gross Sensation Gross Sensation Right LE Impaired Sensation Description Numbness Dermatome Impairments L4 Comments Summary Comments Numbness along right medial knee. Deep Tendon Reflex & Clonus Assessment Deep Tendon Reflex Bilateral Achilles Deep Tendon Reflex 0 Absent Bilateral Patellar Deep Tendon Reflex 1+ Diminished PT-OP-J Posture/Palpation/Skin Start: 12/08/21 13:16 Freq: Status: Active Protocol: Document 12/10/21 16:00 AW (Rec: 12/10/21 16:51 AW [id number]) Posture Evaluation Comments Posture Comments Pt has rightward curvature of the spine at T/L junction. Left iliac crest is slightly higher than right. PT-OP-K Range of Motion Start: 12/08/21 13:16 Freq: Status: Active Protocol: Document 12/10/21 16:00 AW (Rec: 12/10/21 16:51 AW [id number]) Hip Goniometric Range of Motion Hip bilat Hip ROM WFL Yes Comments HS lacking 15-20 degrees bilaterally in passive SLR. Tightness noted at end range IR R hip. IR:ER ratio is generally ~1:2. Hip ROM Limitations Hip ROM Limitations Soft Tissue Tightness,Pain Knee Goniometric Range of Motion Knee bilat Knee ROM WFL Yes PT-OP-L Special Tests Start: 12/08/21 13:16 Freq: Status: Active Protocol: Document 12/10/21 16:00 AW (Rec: 12/10/21 16:51 AW [id number]) Special Tests Lumbar Spine Special Tests Straight Leg Raise Test Results Pt unable to lift RLE without using UE's. LLE SLR is WNL. PT-OP-M Strength Start: 12/08/21 13:16 Freq: Status: Active Protocol: Document 12/10/21 16:00 AW (Rec: 12/10/21 16:51 AW [id number]) Hip Strength Hip Manual Muscle Testing Left Flexion (L2) 4 Good Extension (S1) 4- Good- Abduction 4- Good- External Rotation 4+ Good+ Internal Rotation 4+ Good+ Right Flexion (L2) 3 Fair Extension (S1) 3+ Fair+ Abduction 3+ Fair+ External Rotation 4 Good Internal Rotation 4 Good Knee Strength Knee Manual Muscle Testing Left Flexion (S2) 4+ Good+ Extension (L3) 5 Normal Right Flexion (S2) 4- Good- Extension (L3) 4- Good- Ankle/Foot Strength Ankle and Foot Manual Muscle Testing Left Dorsiflexion (L4) 5 Normal Plantarflexion (S1) 4- Good- Right Dorsiflexion (L4) 4+ Good+ Plantarflexion (S1) 4- Good- PT-OP-Q Treatments Start: 12/08/21 13:16 Freq: Status: Active Protocol: Document 12/10/21 16:00 AW (Rec: 12/10/21 17:13 AW [id number]) Self-Care/Home Management Treatment Education Other Education Presented evaluation findings and proposed a plan of care centered around lumbar and hip mobility, hip strength, and gait training to improve balance and confidence. Pt understood and agreed. PT-OP-T Assessment and Plan Start: 12/08/21 13:16 Freq: Status: Active Protocol: Document 12/10/21 16:00 AW (Rec: 12/10/21 17:13 AW [id number]) Physical Therapy Assessment Rehab Potential Rehabilitation Potential Good Evaluation Complexity Number of Personal Factors/Comorbidities 1-2 Number of Body Systems Impaired 3 Clinical Presentation at Evaluation Evolving Impairments Impairments Balance,Gait,Pain,Posture, Sensation,Strength Other Concerns Fall Risk high per DGI score Goals Three Impairment impaired dynamic balance Socket Puller Goal (LTG) Pt will improve DGI score from 13/24 to 19/24 or greater as a measure of improved balance and reduced falls risk. LTG Duration 03/05/22 Two Impairment RLE weakness Short Term Goal (STG) Pt will demonstrate single leg stance at least 10 seconds each leg without UE support and without excessive shear. STG Duration 01/21/22 Senior Care Goal (LTG) Pt will demonstrate single leg stance at least 20 seconds each leg without UE support and without excessive shear. LTG Duration 03/05/22 One Impairment lacks HEP Short Term Goal (STG) Pt will be instructed in HEP for hip mobility and LE strength to support therapy services provided in clinic STG Duration 01/21/22 Socket Puller Goal (LTG) Susana will be independent with HEP for hip mobility, LE strength, and balance to manage her symptoms LTG Duration 03/05/22 Assessment Summary Assessment Susana attends outpatient physical therapy with complaints of gait instability and right lower extremity weakness which is leading to falls. Weakness and falls began rather suddenly in September of this year. She presents with demonstrable weakness of her right lower extremity and notes numbness along medial right knee. These findings are consistent with imaging which indicates grade 1 anterolisthesis of L4-5 and L5 -S1. She is expected to benefit from skilled therapy to improve her strength and gait with the goal of improving her confidence and reducing her risk of falls. Physical Therapy Plan Frequency and Duration Frequency of Treatment 2x/Week Duration of Treatment 12 weeks Plan of Care Start Date 12/10/21 Plan of Care End Date 03/05/22 Therapeutic Interventions Therapeutic Interventions Aquatic Therapy,Balance Training,Gait Training,Home Exercise Program,Manual Therapy,Neuromuscular Re- education,Patient/Caregiver Education,Self-Care/Home Management,Soft Tissue Mobilization,Therapeutic Activities,Therapeutic Exercises Modalities Cold Pack/Ice Massage,Electric Stimulation,Hot Packs Next Visit Focus/Plan Next Note Type Treatment Note Next Visit Plan Assess 6MWT with device of choice. Initiate hip mobility, lumbar mobility, gait training with AD. May be appropriate to begin gentle strengthening R hip.
--- NOTE | 2021-12-10 17:14 | PT.OPPOC ---
Physical, Occupational & Speech Therapy At [facility] Current Diagnoses Difficulty in walking, not elsewhere classified (12/10/21) Repeated falls (12/10/21) Visit Care Team Role Provider Type Swathi Mcallister MD Primary Care Provider Physician Specialty: [facility] Address: [address] [place] [address], [address] Email: [email or web address] Trevor Gomez MD Attending Provider Physician Referring Provider Specialty: [facility] Address: [address] [place] [address], [address] Email: [email or web address] Plan Of Care PT-OP-T Assessment and Plan Start: 12/08/21 13:16 Freq: Status: Active Protocol: Document 12/10/21 16:00 AW (Rec: 12/10/21 17:13 AW [id number]) Physical Therapy Assessment Rehab Potential Rehabilitation Potential Good Evaluation Complexity Number of Personal Factors/Comorbidities 1-2 Number of Body Systems Impaired 3 Clinical Presentation at Evaluation Evolving Impairments Impairments Balance,Gait,Pain,Posture, Sensation,Strength Other Concerns Fall Risk high per DGI score 13/24 Goals Three Impairment impaired dynamic balance Program Consultant Goal (LTG) Pt will improve DGI score from 13/24 to 19/24 or greater as a measure of improved balance and reduced falls risk. LTG Duration 03/05/22 Two Impairment RLE weakness Short Term Goal (STG) Pt will demonstrate single leg stance at least 10 seconds each leg without UE support and without excessive shear. STG Duration 01/21/22 Long-Term Goal (LTG) Pt will demonstrate single leg stance at least 20 seconds each leg without UE support and without excessive shear. LTG Duration 03/05/22 One Impairment lacks HEP Short Term Goal (STG) Pt will be instructed in HEP for hip mobility and LE strength to support therapy services provided in clinic STG Duration 01/21/22 Long-Term Goal (LTG) Susana will be independent with HEP for hip mobility, LE strength, and balance to manage her symptoms LTG Duration 03/05/22 Assessment Summary Assessment Susana attends outpatient physical therapy with complaints of gait instability and right lower extremity weakness which is leading to falls. Weakness and falls began rather suddenly in September of this year. She presents with demonstrable weakness of her right lower extremity and notes numbness along medial right knee. These findings are consistent with imaging which indicates grade 1 anterolisthesis of L4-5 and L5 -S1. She is expected to benefit from skilled therapy to improve her strength and gait with the goal of improving her confidence and reducing her risk of falls. Physical Therapy Plan Frequency and Duration Frequency of Treatment 2x/Week Duration of Treatment 12 weeks Plan of Care Start Date 12/10/21 Plan of Care End Date 03/05/22 Therapeutic Interventions Therapeutic Interventions Aquatic Therapy,Balance Training,Gait Training,Home Exercise Program,Manual Therapy,Neuromuscular Re- education,Patient/Caregiver Education,Self-Care/Home Management,Soft Tissue Mobilization,Therapeutic Activities,Therapeutic Exercises Modalities Cold Pack/Ice Massage,Electric Stimulation,Hot Packs Next Visit Focus/Plan Next Note Type Treatment Note Next Visit Plan Assess 6MWT with device of choice. Initiate hip mobility, lumbar mobility, gait training with AD. May be appropriate to begin gentle strengthening R hip. Plan of Care Dates Plan of Care Start Date 12/10/21 Plan of Care End Date 03/05/22 Electronically Signed by: Cherelle Bull, ZABRINA 12/10/21 [id number] If you are in agreement with this Plan of Care, please return a signed and dated copy. I have reviewed this Plan of Care and certify that the skilled therapy services above are required to meet the patient?s needs. Physician Signature Date Printed Name and Credentials Clinical Instructor Signature Printed Name and Credentials
--- NOTE | 2021-12-12 13:56 | PT.OTN ---
Current Diagnoses Difficulty in walking, not elsewhere classified (12/12/21) Repeated falls (12/12/21) Physical Therapy Treatment Note PT-OP-A Visit Information Start: 12/08/21 13:16 Freq: Status: Active Protocol: Document 12/12/21 12:23 AW (Rec: 12/12/21 13:56 AW [id number]) Out-Patient Physical Therapy Visit Information Visit Information Visit Type Treatment Note Visit Start Time 13:00 Visit Stop Time 13:45 Total Visit Minutes 45 Visit Number 05/25 Evaluation Information Evaluation Date 12/10/21 PT-OP-B Current Condition Start: 12/08/21 13:16 Freq: Status: Active Protocol: Document 12/10/21 16:00 AW (Rec: 12/08/21 13:28 AW [id number]) Current Condition History of Current Condition Onset Date September 2021 Current Complaints R leg feels unsteady, gives out History of Current Condition Susana Lambert) lives at [facility] with her . 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 Susana started having R hip and low back pain in September which reached a peak early October. She was seen in the ED and had imaging as below. She started using a walker due to pain and a sense of instability. She upgraded to a walking stick eventually and is now walking without a device. She now has little to no pain but states her right leg gives out on her and feels wobbly. She has been having numbness along her right medial knee. She is falling ~once per week. Prior Treatments and Tests - R hip and lumbar spine x- rays at ED on 10/07/21. R hip image shows moderate OA. Lumbar spine image shows grade 1 anterolisthesis L4-L5 and L5-S1 and multilevel degenerative changes. 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 Treatment Goals Patient/Caregiver Goals Continue to walk without assistive device. Reduce falls frequency. Increase confidence in right leg. 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 Pt is very motivated to stay active. PT-OP-C Subjective Start: 12/08/21 13:16 Freq: Status: Active Protocol: Document 12/12/21 12:23 AW (Rec: 12/12/21 13:56 AW [id number]) OP-PT Subjective Patient Comments Patient Comments No falls to report. Petra worked at the [employer] three hours yesterday and feels sore/fatigued. PT-OP-D Balance Start: 12/08/21 13:16 Freq: Status: Active Protocol: Document 12/10/21 16:00 AW (Rec: 12/10/21 16:31 AW [id number]) Balance Tests Single Limb Standing Single Limb- Right 3 sec unsteady with UE support and + Trendelenberg Single Limb- Left 5 sec unsteady with UE support and + Trendelenberg PT-OP-E Functional Tests Start: 12/08/21 13:16 Freq: Status: Active Protocol: Document 12/10/21 16:00 AW (Rec: 12/10/21 16:31 AW [id number]) Functional Tests Dynamic Gait Index (DGI) Score 13 DGI Impairment Rating 40 to <60% Impaired (Score 10- 14) PT-OP-F Manual Assessment Start: 12/08/21 13:16 Freq: Status: Active Protocol: Document 12/10/21 16:00 AW (Rec: 12/10/21 16:39 AW [id number]) Manual Assessments Joint Mobility Assessment Joint Mobility Assessment Slight crepitus bilateral knees. Scour test negative in both hips. Good PA excursion in all lumbar segments. PT-OP-G Mobility & Gait Start: 12/08/21 13:16 Freq: Status: Active Protocol: Document 12/10/21 16:00 AW (Rec: 12/10/21 16:39 AW [id number]) OP Gait Assessment Comments Gait Comments Pt ambulates without device. She vaults over the right LE and has decreased RLE stance time. Right foot is excessively pronated and pt has reduced heelstrike bilaterally. Right hip in slight ER. Stair Climbing Evaluation Comments Stair Climbing Comments Step-to pattern with B rails. Pt does not need to navigate stairs in home environment but notes being extra cautious with patterning on curbs. PT-OP-H Neuro Start: 12/08/21 13:16 Freq: Status: Active Protocol: Document 12/10/21 16:00 AW (Rec: 12/10/21 16:39 AW [id number]) Sensation Evaluation Gross Sensation Gross Sensation Right LE Impaired Sensation Description Numbness Dermatome Impairments L4 Comments Summary Comments Numbness along right medial knee. Deep Tendon Reflex & Clonus Assessment Deep Tendon Reflex Bilateral Achilles Deep Tendon Reflex 0 Absent Bilateral Patellar Deep Tendon Reflex 1+ Diminished PT-OP-J Posture/Palpation/Skin Start: 12/08/21 13:16 Freq: Status: Active Protocol: Document 12/10/21 16:00 AW (Rec: 12/10/21 16:51 AW [id number]) Posture Evaluation Comments Posture Comments Pt has rightward curvature of the spine at T/L junction. Left iliac crest is slightly higher than right. PT-OP-K Range of Motion Start: 12/08/21 13:16 Freq: Status: Active Protocol: Document 12/10/21 16:00 AW (Rec: 12/10/21 16:51 AW [id number]) Hip Goniometric Range of Motion Hip bilat Hip ROM WFL Yes Comments HS lacking 15-20 degrees bilaterally in passive SLR. Tightness noted at end range IR R hip. IR:ER ratio is generally ~1:2. Hip ROM Limitations Hip ROM Limitations Soft Tissue Tightness,Pain Knee Goniometric Range of Motion Knee bilat Knee ROM WFL Yes PT-OP-L Special Tests Start: 12/08/21 13:16 Freq: Status: Active Protocol: Document 12/10/21 16:00 AW (Rec: 12/10/21 16:51 AW [id number]) Special Tests Lumbar Spine Special Tests Straight Leg Raise Test Results Pt unable to lift RLE without using UE's. LLE SLR is WNL. PT-OP-M Strength Start: 12/08/21 13:16 Freq: Status: Active Protocol: Document 12/10/21 16:00 AW (Rec: 12/10/21 16:51 AW [id number]) Hip Strength Hip Manual Muscle Testing Left Flexion (L2) 4 Good Extension (S1) 4- Good- Abduction 4- Good- External Rotation 4+ Good+ Internal Rotation 4+ Good+ Right Flexion (L2) 3 Fair Extension (S1) 3+ Fair+ Abduction 3+ Fair+ External Rotation 4 Good Internal Rotation 4 Good Knee Strength Knee Manual Muscle Testing Left Flexion (S2) 4+ Good+ Extension (L3) 5 Normal Right Flexion (S2) 4- Good- Extension (L3) 4- Good- Ankle/Foot Strength Ankle and Foot Manual Muscle Testing Left Dorsiflexion (L4) 5 Normal Plantarflexion (S1) 4- Good- Right Dorsiflexion (L4) 4+ Good+ Plantarflexion (S1) 4- Good- PT-OP-Q Treatments Start: 12/08/21 13:16 Freq: Status: Active Protocol: Document 12/12/21 12:23 AW (Rec: 12/12/21 13:56 AW [id number]) Therapeutic Exercises Supine Exercises TrA Supine Exercise Name TrA - BKFO Side bilateral Comments prepped with PPT, ANUP piriformis stretch Supine Exercise Name piriformis stretch Side bilateral Resistance opp foot planted Reps/Minutes 30 SH x 4 Comments R tighter; HEP SKTC Supine Exercise Name SKTC Side bilateral Reps/Minutes 30 SH x 4 Comments R tighter; HEP Sidelying Exercises clamshell Sidelying Exercise Name clamshell Side bilateral Resistance AROM Reps/Minutes x12 Comments HEP Other Exercises sit to stand Other Exercise Name sit to stand - no UE support Reps/Minutes x10 Comments HEP Gait Training Gait Activity SPC Device Used SPC Level of Assistance SBA Surface level Treatment Focus patterning, stability Comments Used mirror for visual feedback. SPC decreased trunk lean for improved gait mechanics and efficiency. 6MWT Device Used none Level of Assistance IND Surface level Distance/Duration 1329'/6 min Treatment Focus assessment Comments Avg gait speed 1.1 m/s. Increased antalgia without AD Self-Care/Home Management Treatment Education Patient Education Home Exercise Program Other Education Added SKTC, piriformis stretch , clamshell, and sit to stand for HEP. Advised pt to trial SPC at home for longer walks to improve stability and reduce fatigue. PT-OP-T Assessment and Plan Start: 12/08/21 13:16 Freq: Status: Active Protocol: Document 12/12/21 12:23 AW (Rec: 12/12/21 13:56 AW [id number]) Physical Therapy Assessment Goals Three Impairment impaired dynamic balance Intermediate Goal (LTG) Pt will improve DGI score from 1324 to 19/24 or greater as a measure of improved balance and reduced falls risk. LTG Duration 03/05/22 Two Impairment RLE weakness Short Term Goal (STG) Pt will demonstrate single leg stance at least 10 seconds each leg without UE support and without excessive shear. STG Duration 01/21/22 Intermediate Goal (LTG) Pt will demonstrate single leg stance at least 20 seconds each leg without UE support and without excessive shear. LTG Duration 03/05/22 One Impairment lacks HEP Short Term Goal (STG) Pt will be instructed in HEP for hip mobility and LE strength to support therapy services provided in clinic STG Duration 01/21/22 Animal Care Technician Goal (LTG) Susana will be independent with HEP for hip mobility, LE strength, and balance to manage her symptoms LTG Duration 03/05/22 Assessment Summary Assessment Susana tolerated ther ex and gait training well with no complaint of increased pain and no instance of instability . Will plan to review and progress HEP at next visit. 6MWT was completed with average gait speed of 1.1 m/s which is adequate for community ambulation without assistive device but feel pt would benefit from SPC to improve gait mechanics and efficiency. Physical Therapy Plan Frequency and Duration Frequency of Treatment 2x/Week Duration of Treatment 12 weeks Plan of Care Start Date 12/10/21 Plan of Care End Date 03/05/22 Therapeutic Interventions Therapeutic Interventions Aquatic Therapy,Balance Training,Gait Training,Home Exercise Program,Manual Therapy,Neuromuscular Re- education,Patient/Caregiver Education,Self-Care/Home Management,Soft Tissue Mobilization,Therapeutic Activities,Therapeutic Exercises Modalities Cold Pack/Ice Massage,Electric Stimulation,Hot Packs Next Visit Focus/Plan Next Note Type Treatment Note Next Visit Plan Follow up on use of SPC. Assess response to HEP and progress as able. Revisit sit to stand to correct knee drift
--- NOTE | 2021-12-16 15:19 | PT.OTN ---
Current Diagnoses Difficulty in walking, not elsewhere classified (12/16/21) Repeated falls (12/16/21) Physical Therapy Treatment Note PT-OP-A Visit Information Start: 12/08/21 13:16 Freq: Status: Active Protocol: Document 12/16/21 14:36 SP (Rec: 12/16/21 15:21 SP [id number]) Out-Patient Physical Therapy Visit Information Visit Information Visit Type Treatment Note Visit Start Time 14:36 Visit Stop Time 15:19 Total Visit Minutes 43 Visit Number 06/22 Number of CRACKER SPRAYER Visits 1 Evaluation Information Evaluation Date 12/10/21 PT-OP-B Current Condition Start: 12/08/21 13:16 Freq: Status: Active Protocol: Document 12/10/21 16:00 AW (Rec: 12/08/21 13:28 AW [id number]) Current Condition History of Current Condition Onset Date September 2021 Current Complaints R leg feels unsteady, gives out History of Current Condition Susana Lambert) lives at [facility] with her . 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 Susana started having R hip and low back pain in September which reached a peak early October. She was seen in the ED and had imaging as below. She started using a walker due to pain and a sense of instability. She upgraded to a walking stick eventually and is now walking without a device. She now has little to no pain but states her right leg gives out on her and feels wobbly. She has been having numbness along her right medial knee. She is falling ~once per week. Prior Treatments and Tests - R hip and lumbar spine x- rays at ED on 10/07/21. R hip image shows moderate OA. Lumbar spine image shows grade 1 anterolisthesis L4-L5 and L5-S1 and multilevel degenerative changes. 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 Treatment Goals Patient/Caregiver Goals Continue to walk without assistive device. Reduce falls frequency. Increase confidence in right leg. 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 Pt is very motivated to stay active. PT-OP-C Subjective Start: 12/08/21 13:16 Freq: Status: Active Protocol: Document 12/16/21 14:36 SP (Rec: 12/16/21 15:21 SP [id number]) OP-PT Subjective Patient Comments Patient Comments Pt reports little sore after last tx from new stretches but went away. Started using SPC during walks with dog and finds is helpful for stability . PT-OP-D Balance Start: 12/08/21 13:16 Freq: Status: Active Protocol: Document 12/10/21 16:00 AW (Rec: 12/10/21 16:31 AW [id number]) Balance Tests Single Limb Standing Single Limb- Right 3 sec unsteady with UE support and + Trendelenberg Single Limb- Left 5 sec unsteady with UE support and + Trendelenberg PT-OP-E Functional Tests Start: 12/08/21 13:16 Freq: Status: Active Protocol: Document 12/10/21 16:00 AW (Rec: 12/10/21 16:31 AW [id number]) Functional Tests Dynamic Gait Index (DGI) Score 13 DGI Impairment Rating 40 to <60% Impaired (Score 10- 14) PT-OP-F Manual Assessment Start: 12/08/21 13:16 Freq: Status: Active Protocol: Document 12/10/21 16:00 AW (Rec: 12/10/21 16:39 AW [id number]) Manual Assessments Joint Mobility Assessment Joint Mobility Assessment Slight crepitus bilateral knees. Scour test negative in both hips. Good PA excursion in all lumbar segments. PT-OP-G Mobility & Gait Start: 12/08/21 13:16 Freq: Status: Active Protocol: Document 12/10/21 16:00 AW (Rec: 12/10/21 16:39 AW [id number]) OP Gait Assessment Comments Gait Comments Pt ambulates without device. She vaults over the right LE and has decreased RLE stance time. Right foot is excessively pronated and pt has reduced heelstrike bilaterally. Right hip in slight ER. Stair Climbing Evaluation Comments Stair Climbing Comments Step-to pattern with B rails. Pt does not need to navigate stairs in home environment but notes being extra cautious with patterning on curbs. PT-OP-H Neuro Start: 12/08/21 13:16 Freq: Status: Active Protocol: Document 12/10/21 16:00 AW (Rec: 12/10/21 16:39 AW [id number]) Sensation Evaluation Gross Sensation Gross Sensation Right LE Impaired Sensation Description Numbness Dermatome Impairments L4 Comments Summary Comments Numbness along right medial knee. Deep Tendon Reflex & Clonus Assessment Deep Tendon Reflex Bilateral Achilles Deep Tendon Reflex 0 Absent Bilateral Patellar Deep Tendon Reflex 1+ Diminished PT-OP-J Posture/Palpation/Skin Start: 12/08/21 13:16 Freq: Status: Active Protocol: Document 12/10/21 16:00 AW (Rec: 12/10/21 16:51 AW [id number]) Posture Evaluation Comments Posture Comments Pt has rightward curvature of the spine at T/L junction. Left iliac crest is slightly higher than right. PT-OP-K Range of Motion Start: 12/08/21 13:16 Freq: Status: Active Protocol: Document 12/10/21 16:00 AW (Rec: 12/10/21 16:51 AW [id number]) Hip Goniometric Range of Motion Hip bilat Hip ROM WFL Yes Comments HS lacking 15-20 degrees bilaterally in passive SLR. Tightness noted at end range IR R hip. IR:ER ratio is generally ~1:2. Hip ROM Limitations Hip ROM Limitations Soft Tissue Tightness,Pain Knee Goniometric Range of Motion Knee bilat Knee ROM WFL Yes PT-OP-L Special Tests Start: 12/08/21 13:16 Freq: Status: Active Protocol: Document 12/10/21 16:00 AW (Rec: 12/10/21 16:51 AW [id number]) Special Tests Lumbar Spine Special Tests Straight Leg Raise Test Results Pt unable to lift RLE without using UE's. LLE SLR is WNL. PT-OP-M Strength Start: 12/08/21 13:16 Freq: Status: Active Protocol: Document 12/10/21 16:00 AW (Rec: 12/10/21 16:51 AW [id number]) Hip Strength Hip Manual Muscle Testing Left Flexion (L2) 4 Good Extension (S1) 4- Good- Abduction 4- Good- External Rotation 4+ Good+ Internal Rotation 4+ Good+ Right Flexion (L2) 3 Fair Extension (S1) 3+ Fair+ Abduction 3+ Fair+ External Rotation 4 Good Internal Rotation 4 Good Knee Strength Knee Manual Muscle Testing Left Flexion (S2) 4+ Good+ Extension (L3) 5 Normal Right Flexion (S2) 4- Good- Extension (L3) 4- Good- Ankle/Foot Strength Ankle and Foot Manual Muscle Testing Left Dorsiflexion (L4) 5 Normal Plantarflexion (S1) 4- Good- Right Dorsiflexion (L4) 4+ Good+ Plantarflexion (S1) 4- Good- PT-OP-Q Treatments Start: 12/08/21 13:16 Freq: Status: Active Protocol: Document 12/16/21 14:36 SP (Rec: 12/16/21 15:21 SP [id number]) Therapeutic Exercises Supine Exercises Al stretch Supine Exercise Name added to HEP Side bilateral Reps/Minutes 2 x30 Comments cued TA awareness so no LB recruit/arch- good response TrA Supine Exercise Name 1. TrA, 2. SL alternating june, 3. BKFO Side bilateral Comments cued slow pacing, level pelvis not rock wording best piriformis stretch Supine Exercise Name piriformis stretch- opp LE straight Side bilateral Resistance opp foot planted Reps/Minutes 30 SH x 4 Comments R anterior hip pinch with opp knee bent modify opp straight- good PF str R SKTC Supine Exercise Name SKTC-HEP Side bilateral Reps/Minutes 30 SH x 4 Comments R tighter- good feedback stretch if slow so no cramp TFL quick Sidelying Exercises hip abd Sidelying Exercise Name added to HEP Side right Equipment Used pillow between BLEs Reps/Minutes x10 reps Comments cued stacked shld, hips, quad knee ext, lead heel- good abd fac response clamshell Sidelying Exercise Name clamshell- HEP review- hold for now Side bilateral Resistance AROM Reps/Minutes x12 Comments challenged inhibiting TLF recruitment Sitting Exercises self STMs Sitting Exercise Name added to HEP: calf, quad, HS, adductor, ITB Side bilateral Reps/Minutes 2 min total Comments good feedback Other Exercises sit to stand Other Exercise Name sit to stand - arms across chest Reps/Minutes x10 Comments cued feet back underneath, slow eccentric control- limited L knee/ankle Manual Therapy Treatment Soft Tissue Mobilization R LE Body Location R quad, TFL Mobilization Type Cross-Friction,Strumming Intensity/Depth Moderate Body Position Hooklying Comments manual and instructed self use rolling pin, compliment stretching. Self-Care/Home Management Treatment Education Patient Education Home Exercise Program Other Education added self STMs with rolling pin, al stretch for decrease TFL and quad tension, modified PF stretch with opp LE extension for for no anterior hip pinching onR, sidelying hip abd better hip abd facilitation vs clamshell (more TFL recruitment). Ed for hip abd during STS, address more next time. PT-OP-T Assessment and Plan Start: 12/08/21 13:16 Freq: Status: Active Protocol: Document 12/16/21 14:36 SP (Rec: 12/16/21 15:21 SP [id number]) Physical Therapy Assessment Goals Three Impairment impaired dynamic balance Senior Living Goal (LTG) Pt will improve DGI score from to or greater as a measure of improved balance and reduced falls risk. LTG Duration 03/05/22 Two Impairment RLE weakness Short Term Goal (STG) Pt will demonstrate single leg stance at least 10 seconds each leg without UE support and without excessive shear. STG Duration 01/21/22 Senior Living Goal (LTG) Pt will demonstrate single leg stance at least 20 seconds each leg without UE support and without excessive shear. LTG Duration 03/05/22 One Impairment lacks HEP Short Term Goal (STG) Pt will be instructed in HEP for hip mobility and LE strength to support therapy services provided in clinic 12/16/21: added self STMs w/ rolling pin, al stretch, hip abd on side, STS, supine stretches, BKFO. STG Duration 01/21/22 progressing 12/16/21 Deputy Sheriff Custody Goal (LTG) Susana will be independent with HEP for hip mobility, LE strength, and balance to manage her symptoms LTG Duration 03/05/22 Assessment Summary Assessment Pt improved core and L hip abd facilitation this tx. Added and made modifications in stretches to decrease R hip tightness. Instructed self STMs for added flexibility. Noted end tx has tight L calf during STS and possible flexion ROM L knee, unable to complete more DF for feet underneath her, performs heel elevated so has to weight shift more forward and afraid migh fall. Physical Therapy Plan Frequency and Duration Frequency of Treatment 2x/Week Duration of Treatment 12 weeks Plan of Care Start Date 12/10/21 Plan of Care End Date 03/05/22 Therapeutic Interventions Therapeutic Interventions Aquatic Therapy,Balance Training,Gait Training,Home Exercise Program,Manual Therapy,Neuromuscular Re- education,Patient/Caregiver Education,Self-Care/Home Management,Soft Tissue Mobilization,Therapeutic Activities,Therapeutic Exercises Modalities Cold Pack/Ice Massage,Electric Stimulation,Hot Packs Next Visit Focus/Plan Next Note Type Treatment Note Next Visit Plan Add DF flexibility: calf stretch, manual and review rolling pin to quad, calf for increase Lknee flexion and ankle DF. POC: Follow up on use of SPC. Assess response to HEP and progress as able. Revisit sit to stand to correct knee drift into adducted.
--- NOTE | 2021-12-18 15:21 | PT.OTN ---
Current Diagnoses Difficulty in walking, not elsewhere classified (12/18/21) Repeated falls (12/18/21) Physical Therapy Treatment Note PT-OP-A Visit Information Start: 12/08/21 13:16 Freq: Status: Active Protocol: Document 12/18/21 13:48 AW (Rec: 12/18/21 14:34 AW [id number]) Out-Patient Physical Therapy Visit Information Visit Information Visit Type Treatment Note Visit Start Time 13:45 Visit Stop Time 14:20 Total Visit Minutes 40 Visit Number 07/23 Evaluation Information Evaluation Date 12/10/21 PT-OP-B Current Condition Start: 12/08/21 13:16 Freq: Status: Active Protocol: Document 12/10/21 16:00 AW (Rec: 12/08/21 13:28 AW [id number]) Current Condition History of Current Condition Onset Date September 2021 Current Complaints R leg feels unsteady, gives out History of Current Condition Susana Lambert) lives at [facility] with her . 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 Susana started having R hip and low back pain in September which reached a peak early October. She was seen in the ED and had imaging as below. She started using a walker due to pain and a sense of instability. She upgraded to a walking stick eventually and is now walking without a device. She now has little to no pain but states her right leg gives out on her and feels wobbly. She has been having numbness along her right medial knee. She is falling ~once per week. Prior Treatments and Tests - R hip and lumbar spine x- rays at ED on 10/07/21. R hip image shows moderate OA. Lumbar spine image shows grade 1 anterolisthesis L4-L5 and L5-S1 and multilevel degenerative changes. 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 Treatment Goals Patient/Caregiver Goals Continue to walk without assistive device. Reduce falls frequency. Increase confidence in right leg. 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 Pt is very motivated to stay active. PT-OP-C Subjective Start: 12/08/21 13:16 Freq: Status: Active Protocol: Document 12/18/21 13:48 AW (Rec: 12/18/21 14:34 AW [id number]) OP-PT Subjective Patient Comments Patient Comments Had right leg merari horse last night doing supine exercises but quickly resolved . Feels good about using a cane for walking the dog. 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 PT-OP-D Balance Start: 12/08/21 13:16 Freq: Status: Active Protocol: Document 12/10/21 16:00 AW (Rec: 12/10/21 16:31 AW [id number]) Balance Tests Single Limb Standing Single Limb- Right 3 sec unsteady with UE support and + Trendelenberg Single Limb- Left 5 sec unsteady with UE support and + Trendelenberg PT-OP-E Functional Tests Start: 12/08/21 13:16 Freq: Status: Active Protocol: Document 12/10/21 16:00 AW (Rec: 12/10/21 16:31 AW [id number]) Functional Tests Dynamic Gait Index (DGI) Score 13 DGI Impairment Rating 40 to <60% Impaired (Score 10- 14) PT-OP-F Manual Assessment Start: 12/08/21 13:16 Freq: Status: Active Protocol: Document 12/10/21 16:00 AW (Rec: 12/10/21 16:39 AW [id number]) Manual Assessments Joint Mobility Assessment Joint Mobility Assessment Slight crepitus bilateral knees. Scour test negative in both hips. Good PA excursion in all lumbar segments. PT-OP-G Mobility & Gait Start: 12/08/21 13:16 Freq: Status: Active Protocol: Document 12/10/21 16:00 AW (Rec: 12/10/21 16:39 AW [id number]) OP Gait Assessment Comments Gait Comments Pt ambulates without device. She vaults over the right LE and has decreased RLE stance time. Right foot is excessively pronated and pt has reduced heelstrike bilaterally. Right hip in slight ER. Stair Climbing Evaluation Comments Stair Climbing Comments Step-to pattern with B rails. Pt does not need to navigate stairs in home environment but notes being extra cautious with patterning on curbs. PT-OP-H Neuro Start: 12/08/21 13:16 Freq: Status: Active Protocol: Document 12/10/21 16:00 AW (Rec: 12/10/21 16:39 AW [id number]) Sensation Evaluation Gross Sensation Gross Sensation Right LE Impaired Sensation Description Numbness Dermatome Impairments L4 Comments Summary Comments Numbness along right medial knee. Deep Tendon Reflex & Clonus Assessment Deep Tendon Reflex Bilateral Achilles Deep Tendon Reflex 0 Absent Bilateral Patellar Deep Tendon Reflex 1+ Diminished PT-OP-J Posture/Palpation/Skin Start: 12/08/21 13:16 Freq: Status: Active Protocol: Document 12/10/21 16:00 AW (Rec: 12/10/21 16:51 AW [id number]) Posture Evaluation Comments Posture Comments Pt has rightward curvature of the spine at T/L junction. Left iliac crest is slightly higher than right. PT-OP-K Range of Motion Start: 12/08/21 13:16 Freq: Status: Active Protocol: Document 12/10/21 16:00 AW (Rec: 12/10/21 16:51 AW [id number]) Hip Goniometric Range of Motion Hip bilat Hip ROM WFL Yes Comments HS lacking 15-20 degrees bilaterally in passive SLR. Tightness noted at end range IR R hip. IR:ER ratio is generally ~1:2. Hip ROM Limitations Hip ROM Limitations Soft Tissue Tightness,Pain Knee Goniometric Range of Motion Knee bilat Knee ROM WFL Yes PT-OP-L Special Tests Start: 12/08/21 13:16 Freq: Status: Active Protocol: Document 12/10/21 16:00 AW (Rec: 12/10/21 16:51 AW [id number]) Special Tests Lumbar Spine Special Tests Straight Leg Raise Test Results Pt unable to lift RLE without using UE's. LLE SLR is WNL. PT-OP-M Strength Start: 12/08/21 13:16 Freq: Status: Active Protocol: Document 12/10/21 16:00 AW (Rec: 12/10/21 16:51 AW [id number]) Hip Strength Hip Manual Muscle Testing Left Flexion (L2) 4 Good Extension (S1) 4- Good- Abduction 4- Good- External Rotation 4+ Good+ Internal Rotation 4+ Good+ Right Flexion (L2) 3 Fair Extension (S1) 3+ Fair+ Abduction 3+ Fair+ External Rotation 4 Good Internal Rotation 4 Good Knee Strength Knee Manual Muscle Testing Left Flexion (S2) 4+ Good+ Extension (L3) 5 Normal Right Flexion (S2) 4- Good- Extension (L3) 4- Good- Ankle/Foot Strength Ankle and Foot Manual Muscle Testing Left Dorsiflexion (L4) 5 Normal Plantarflexion (S1) 4- Good- Right Dorsiflexion (L4) 4+ Good+ Plantarflexion (S1) 4- Good- PT-OP-Q Treatments Start: 12/08/21 13:16 Freq: Status: Active Protocol: Document 12/18/21 13:48 AW (Rec: 12/18/21 14:34 AW [id number]) Cardio Equipment Recumbent Elliptical ([employer]) Duration (Minutes) 5 Resistance 3 Seat Position 5 seen Other pt maintains 50-60 rpm Therapeutic Exercises Supine Exercises Al stretch Supine Exercise Name HEP review Side bilateral Reps/Minutes 2 x30 Comments cued TA awareness so no LB recruit/arch- good response TrA Supine Exercise Name 1. TrA, 2. SL alternating june, 3. BKFO Side bilateral Comments cued slow pacing, level pelvis not rock wording best SKTC Supine Exercise Name SKTC-HEP Side bilateral Reps/Minutes 30 SH x 4 Comments R tighter- good feedback stretch if slow so no cramp TFL quick Sidelying Exercises hip abd Sidelying Exercise Name HEP review Side bilateral Equipment Used pillow between BLEs Reps/Minutes 2x15 reps Comments cued stacked shld, hips, quad knee ext, lead heel- good abd fac response Standing Exercises gastroc stretch Standing Exercise Name gastroc stretch Side bilateral Equipment Used [place], then at wall for HEP Comments HEP Other Exercises sit to stand Other Exercise Name sit to stand - arms across chest Equipment Used TB1 at knees for biofeedback hip rotation Reps/Minutes 2x8 Comments cued feet back underneath, slow eccentric control- limited L knee/ankle Manual Therapy Treatment Soft Tissue Mobilization R LE Body Location R quad, TFL Mobilization Type Cross-Friction,Strumming Intensity/Depth Moderate Body Position Hooklying Comments Pt has not yet found her rolling pin. Still looking. Advise next visit to consider [employer]. Self-Care/Home Management Treatment Education Patient Education Home Exercise Program Other Education added gastroc stretch PT-OP-T Assessment and Plan Start: 12/08/21 13:16 Freq: Status: Active Protocol: Document 12/18/21 13:48 AW (Rec: 12/18/21 14:34 AW [id number]) Physical Therapy Assessment Goals Three Impairment impaired dynamic balance Intermediate Goal (LTG) Pt will improve DGI score from 13/24 to 19/24 or greater as a measure of improved balance and reduced falls risk. LTG Duration 03/05/22 Two Impairment RLE weakness Short Term Goal (STG) Pt will demonstrate single leg stance at least 10 seconds each leg without UE support and without excessive shear. STG Duration 01/21/22 Intermediate Goal (LTG) Pt will demonstrate single leg stance at least 20 seconds each leg without UE support and without excessive shear. LTG Duration 03/05/22 One Impairment lacks HEP Short Term Goal (STG) Pt will be instructed in HEP for hip mobility and LE strength to support therapy services provided in clinic 12/16/21: added self STMs w/ rolling pin, al stretch, hip abd on side, STS, supine stretches, BKFO. STG Duration 01/21/22 progressing 12/16/21 Intermediate Goal (LTG) Susana will be independent with HEP for hip mobility, LE strength, and balance to manage her symptoms LTG Duration 03/05/22 Assessment Summary Assessment Susana was better able to facilitate hip abduction in sit to stand with band at knees. She does report some left knee pain which is chronic but manageable. Using a cane while walking the dog has been very helpful. Physical Therapy Plan Frequency and Duration Frequency of Treatment 2x/Week Duration of Treatment 12 weeks Plan of Care Start Date 12/10/21 Plan of Care End Date 03/05/22 Therapeutic Interventions Therapeutic Interventions Aquatic Therapy,Balance Training,Gait Training,Home Exercise Program,Manual Therapy,Neuromuscular Re- education,Patient/Caregiver Education,Self-Care/Home Management,Soft Tissue Mobilization,Therapeutic Activities,Therapeutic Exercises Modalities Cold Pack/Ice Massage,Electric Stimulation,Hot Packs Next Visit Focus/Plan Next Note Type Treatment Note Next Visit Plan Review DF flexibility: calf stretch, manual and review rolling pin to quad, calf for increase Lknee flexion and ankle DF. POC: Follow up on use of SPC. Assess response to HEP and progress as able. Revisit sit to stand to correct knee drift into adducted.
--- NOTE | 2021-12-24 11:40 | PT.OTN ---
Current Diagnoses Difficulty in walking, not elsewhere classified (12/24/21) Repeated falls (12/24/21) Physical Therapy Treatment Note PT-OP-A Visit Information Start: 12/08/21 13:16 Freq: Status: Active Protocol: Document 12/24/21 09:52 NBM (Rec: 12/24/21 10:34 NBM [id number]) Out-Patient Physical Therapy Visit Information Visit Information Visit Type Treatment Note Visit Start Time 09:47 Visit Stop Time 10:31 Total Visit Minutes 44 Visit Number 08/22 PT-OP-B Current Condition Start: 12/08/21 13:16 Freq: Status: Active Protocol: Document 12/10/21 16:00 AW (Rec: 12/08/21 13:28 AW [id number]) Current Condition History of Current Condition Onset Date September 2021 Current Complaints R leg feels unsteady, gives out History of Current Condition Susana Lambert) lives at [facility] with her . 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 Susana started having R hip and low back pain in September which reached a peak early October. She was seen in the ED and had imaging as below. She started using a walker due to pain and a sense of instability. She upgraded to a walking stick eventually and is now walking without a device. She now has little to no pain but states her right leg gives out on her and feels wobbly. She has been having numbness along her right medial knee. She is falling ~once per week. Prior Treatments and Tests - R hip and lumbar spine x- rays at ED on 10/07/21. R hip image shows moderate OA. Lumbar spine image shows grade 1 anterolisthesis L4-L5 and L5-S1 and multilevel degenerative changes. 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 Treatment Goals Patient/Caregiver Goals Continue to walk without assistive device. Reduce falls frequency. Increase confidence in right leg. 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 Pt is very motivated to stay active. PT-OP-C Subjective Start: 12/08/21 13:16 Freq: Status: Active Protocol: Document 12/24/21 09:52 NBM (Rec: 12/24/21 10:34 NBM [id number]) OP-PT Subjective Patient Comments Patient Comments Pt reports she is improving. She is no longer using a cane walking the dog because she feels pretty secure. She usually walks two blocks but walked one last night due to pain in her R hip. She notices she is especially tired by the end of the day and hasn't been doing her exercises every day because of being busy. Pt has been averaging 4700 steps , but last two days was over 5 ,000. PT-OP-D Balance Start: 12/08/21 13:16 Freq: Status: Active Protocol: Document 12/10/21 16:00 AW (Rec: 12/10/21 16:31 AW [id number]) Balance Tests Single Limb Standing Single Limb- Right 3 sec unsteady with UE support and + Trendelenberg Single Limb- Left 5 sec unsteady with UE support and + Trendelenberg PT-OP-E Functional Tests Start: 12/08/21 13:16 Freq: Status: Active Protocol: Document 12/10/21 16:00 AW (Rec: 12/10/21 16:31 AW [id number]) Functional Tests Dynamic Gait Index (DGI) Score 13 DGI Impairment Rating 40 to <60% Impaired (Score 10- 14) PT-OP-F Manual Assessment Start: 12/08/21 13:16 Freq: Status: Active Protocol: Document 12/10/21 16:00 AW (Rec: 12/10/21 16:39 AW [id number]) Manual Assessments Joint Mobility Assessment Joint Mobility Assessment Slight crepitus bilateral knees. Scour test negative in both hips. Good PA excursion in all lumbar segments. PT-OP-G Mobility & Gait Start: 12/08/21 13:16 Freq: Status: Active Protocol: Document 12/10/21 16:00 AW (Rec: 12/10/21 16:39 AW [id number]) OP Gait Assessment Comments Gait Comments Pt ambulates without device. She vaults over the right LE and has decreased RLE stance time. Right foot is excessively pronated and pt has reduced heelstrike bilaterally. Right hip in slight ER. Stair Climbing Evaluation Comments Stair Climbing Comments Step-to pattern with B rails. Pt does not need to navigate stairs in home environment but notes being extra cautious with patterning on curbs. PT-OP-H Neuro Start: 12/08/21 13:16 Freq: Status: Active Protocol: Document 12/10/21 16:00 AW (Rec: 12/10/21 16:39 AW [id number]) Sensation Evaluation Gross Sensation Gross Sensation Right LE Impaired Sensation Description Numbness Dermatome Impairments L4 Comments Summary Comments Numbness along right medial knee. Deep Tendon Reflex & Clonus Assessment Deep Tendon Reflex Bilateral Achilles Deep Tendon Reflex 0 Absent Bilateral Patellar Deep Tendon Reflex 1+ Diminished PT-OP-J Posture/Palpation/Skin Start: 12/08/21 13:16 Freq: Status: Active Protocol: Document 12/10/21 16:00 AW (Rec: 12/10/21 16:51 AW [id number]) Posture Evaluation Comments Posture Comments Pt has rightward curvature of the spine at T/L junction. Left iliac crest is slightly higher than right. PT-OP-K Range of Motion Start: 12/08/21 13:16 Freq: Status: Active Protocol: Document 12/10/21 16:00 AW (Rec: 12/10/21 16:51 AW [id number]) Hip Goniometric Range of Motion Hip bilat Hip ROM WFL Yes Comments HS lacking 15-20 degrees bilaterally in passive SLR. Tightness noted at end range IR R hip. IR:ER ratio is generally ~1:2. Hip ROM Limitations Hip ROM Limitations Soft Tissue Tightness,Pain Knee Goniometric Range of Motion Knee bilat Knee ROM WFL Yes PT-OP-L Special Tests Start: 12/08/21 13:16 Freq: Status: Active Protocol: Document 12/10/21 16:00 AW (Rec: 12/10/21 16:51 AW [id number]) Special Tests Lumbar Spine Special Tests Straight Leg Raise Test Results Pt unable to lift RLE without using UE's. LLE SLR is WNL. PT-OP-M Strength Start: 12/08/21 13:16 Freq: Status: Active Protocol: Document 12/10/21 16:00 AW (Rec: 12/10/21 16:51 AW [id number]) Hip Strength Hip Manual Muscle Testing Left Flexion (L2) 4 Good Extension (S1) 4- Good- Abduction 4- Good- External Rotation 4+ Good+ Internal Rotation 4+ Good+ Right Flexion (L2) 3 Fair Extension (S1) 3+ Fair+ Abduction 3+ Fair+ External Rotation 4 Good Internal Rotation 4 Good Knee Strength Knee Manual Muscle Testing Left Flexion (S2) 4+ Good+ Extension (L3) 5 Normal Right Flexion (S2) 4- Good- Extension (L3) 4- Good- Ankle/Foot Strength Ankle and Foot Manual Muscle Testing Left Dorsiflexion (L4) 5 Normal Plantarflexion (S1) 4- Good- Right Dorsiflexion (L4) 4+ Good+ Plantarflexion (S1) 4- Good- PT-OP-Q Treatments Start: 12/08/21 13:16 Freq: Status: Active Protocol: Document 12/24/21 09:52 NB (Rec: 12/24/21 10:34 NB [id number]) Cardio Equipment Recumbent Stepper (Sci-Fit) Duration (Minutes) 5 Resistance 4 x 4', 3 x 1' Seat Position 9 Therapeutic Exercises Sitting Exercises clamshells Sitting Exercise Name added to HEP Resistance Lvl 1 Tb Reps/Minutes 2x15 Standing Exercises 2-way hip Standing Exercise Name ext/abd Side bilateral Resistance Lvl 1 Tb at knees Equipment Used handrail Reps/Minutes x10 ea Comments RLE stance more challenging Kitchen sink Equipment Used rail Reps/Minutes 2 x 30 gastroc stretch Standing Exercise Name gastroc stretch Side bilateral Equipment Used at wall Comments cues for no hip rotation Other Exercises sit to stand Other Exercise Name sit to stand - arms across chest Equipment Used TB1 at knees for biofeedback hip rotation Reps/Minutes 2x10 w/glute squeeze at top Comments cued feet back underneath, slow ecc. control- limited L knee/ankle Manual Therapy Treatment Soft Tissue Mobilization R LE Body Location R quad, TFL Mobilization Type Cross-Friction,Strumming Intensity/Depth Moderate Body Position Hooklying Comments Pt has not yet found her rolling pin. Pt plans to try [employer] stores again tomorrow. Self-Care/Home Management Treatment Education Patient Education Body Mechanics,Home Exercise Program,Pain Management Other Education explained benefit of removing phone from R back pocket when sitting/exercising. Added to HEP: seated clamshells - Lvl 1 Tb and HO given. PT-OP-T Assessment and Plan Start: 12/08/21 13:16 Freq: Status: Active Protocol: Document 12/24/21 09:52 NBM (Rec: 12/24/21 10:34 [facility] [id number]) Physical Therapy Assessment Goals Three Impairment impaired dynamic balance Halfway Goal (LTG) Pt will improve DGI score from 13/24 to 19/24 or greater as a measure of improved balance and reduced falls risk. LTG Duration 03/05/22 Two Impairment RLE weakness Short Term Goal (STG) Pt will demonstrate single leg stance at least 10 seconds each leg without UE support and without excessive shear. STG Duration 01/21/22 [employer] Goal (LTG) Pt will demonstrate single leg stance at least 20 seconds each leg without UE support and without excessive shear. LTG Duration 03/05/22 One Impairment lacks HEP Short Term Goal (STG) Pt will be instructed in HEP for hip mobility and LE strength to support therapy services provided in clinic 12/16/21: added self STMs w/ rolling pin, chris stretch, hip abd on side, STS, supine stretches, BKFO. STG Duration 01/21/22 progressing 12/16/21 [employer] Goal (LTG) Susana will be independent with HEP for hip mobility, LE strength, and balance to manage her symptoms LTG Duration 03/05/22 Assessment Summary Assessment Resisted standing hip extension is more challenging on RLE stance leg than LLE and pt requires cues for upright posture on RLE. Pt also requires cues to avoid lumbar hyerextension w/ hip extension . Pt encouraged to remove cell phone from posterior right pocket. Palpable tightness in R TFL, IT band and quads improves w/ manual therapy - pt to check tomorrow for rolling pin for self-STM. Resisted seated clamshells w/ Lvl 1 Theraband added to HEP - HO given. Physical Therapy Plan Next Visit Focus/Plan Next Note Type Treatment Note Next Visit Plan Review HEP: seated clamshells. Consider 2-way hip extension POC: Review DF flexibility: calf stretch, manual and review rolling pin to quad, calf for increase Lknee flexion and ankle DF. POC: Follow up on use of SPC. Assess response to HEP and progress as able. Revisit sit to stand to correct knee drift into adducted.
--- NOTE | 2021-12-26 12:31 | PT.OTN ---
Current Diagnoses Difficulty in walking, not elsewhere classified (12/26/21) Repeated falls (12/26/21) Physical Therapy Treatment Note PT-OP-A Visit Information Start: 12/08/21 13:16 Freq: Status: Active Protocol: Document 12/26/21 10:33 AW (Rec: 12/26/21 12:30 AW [id number]) Out-Patient Physical Therapy Visit Information Visit Information Visit Type Treatment Note Visit Start Time 10:34 Visit Stop Time 11:15 Total Visit Minutes 41 Visit Number 09/22 Evaluation Information Evaluation Date 12/10/21 PT-OP-B Current Condition Start: 12/08/21 13:16 Freq: Status: Active Protocol: Document 12/10/21 16:00 AW (Rec: 12/08/21 13:28 AW [id number]) Current Condition History of Current Condition Onset Date September 2021 Current Complaints R leg feels unsteady, gives out History of Current Condition Susana Lambert) lives at [facility] with her . 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 Susana started having R hip and low back pain in September which reached a peak early October. She was seen in the ED and had imaging as below. She started using a walker due to pain and a sense of instability. She upgraded to a walking stick eventually and is now walking without a device. She now has little to no pain but states her right leg gives out on her and feels wobbly. She has been having numbness along her right medial knee. She is falling ~once per week. Prior Treatments and Tests - R hip and lumbar spine x- rays at ED on 10/07/21. R hip image shows moderate OA. Lumbar spine image shows grade 1 anterolisthesis L4-L5 and L5-S1 and multilevel degenerative changes. 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 Treatment Goals Patient/Caregiver Goals Continue to walk without assistive device. Reduce falls frequency. Increase confidence in right leg. 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 Pt is very motivated to stay active. PT-OP-C Subjective Start: 12/08/21 13:16 Freq: Status: Active Protocol: Document 12/26/21 10:33 AW (Rec: 12/26/21 12:30 AW [id number]) OP-PT Subjective Patient Comments Patient Comments Doing well. Does not feel unsteadiness while walking without cane. Right knee numbness has resolved. Pt has had no falls since starting therapy. PT-OP-D Balance Start: 12/08/21 13:16 Freq: Status: Active Protocol: Document 12/10/21 16:00 AW (Rec: 12/10/21 16:31 AW [id number]) Balance Tests Single Limb Standing Single Limb- Right 3 sec unsteady with UE support and + Trendelenberg Single Limb- Left 5 sec unsteady with UE support and + Trendelenberg PT-OP-E Functional Tests Start: 12/08/21 13:16 Freq: Status: Active Protocol: Document 12/10/21 16:00 AW (Rec: 12/10/21 16:31 AW [id number]) Functional Tests Dynamic Gait Index (DGI) Score 13 DGI Impairment Rating 40 to <60% Impaired (Score 10- 14) PT-OP-F Manual Assessment Start: 12/08/21 13:16 Freq: Status: Active Protocol: Document 12/10/21 16:00 AW (Rec: 12/10/21 16:39 AW [id number]) Manual Assessments Joint Mobility Assessment Joint Mobility Assessment Slight crepitus bilateral knees. Scour test negative in both hips. Good PA excursion in all lumbar segments. PT-OP-G Mobility & Gait Start: 12/08/21 13:16 Freq: Status: Active Protocol: Document 12/10/21 16:00 AW (Rec: 12/10/21 16:39 AW [id number]) OP Gait Assessment Comments Gait Comments Pt ambulates without device. She vaults over the right LE and has decreased RLE stance time. Right foot is excessively pronated and pt has reduced heelstrike bilaterally. Right hip in slight ER. Stair Climbing Evaluation Comments Stair Climbing Comments Step-to pattern with B rails. Pt does not need to navigate stairs in home environment but notes being extra cautious with patterning on curbs. PT-OP-H Neuro Start: 12/08/21 13:16 Freq: Status: Active Protocol: Document 12/10/21 16:00 AW (Rec: 12/10/21 16:39 AW [id number]) Sensation Evaluation Gross Sensation Gross Sensation Right LE Impaired Sensation Description Numbness Dermatome Impairments L4 Comments Summary Comments Numbness along right medial knee. Deep Tendon Reflex & Clonus Assessment Deep Tendon Reflex Bilateral Achilles Deep Tendon Reflex 0 Absent Bilateral Patellar Deep Tendon Reflex 1+ Diminished PT-OP-J Posture/Palpation/Skin Start: 12/08/21 13:16 Freq: Status: Active Protocol: Document 12/10/21 16:00 AW (Rec: 12/10/21 16:51 AW [id number]) Posture Evaluation Comments Posture Comments Pt has rightward curvature of the spine at T/L junction. Left iliac crest is slightly higher than right. PT-OP-K Range of Motion Start: 12/08/21 13:16 Freq: Status: Active Protocol: Document 12/10/21 16:00 AW (Rec: 12/10/21 16:51 AW [id number]) Hip Goniometric Range of Motion Hip bilat Hip ROM WFL Yes Comments HS lacking 15-20 degrees bilaterally in passive SLR. Tightness noted at end range IR R hip. IR:ER ratio is generally ~1:2. Hip ROM Limitations Hip ROM Limitations Soft Tissue Tightness,Pain Knee Goniometric Range of Motion Knee bilat Knee ROM WFL Yes PT-OP-L Special Tests Start: 12/08/21 13:16 Freq: Status: Active Protocol: Document 12/10/21 16:00 AW (Rec: 12/10/21 16:51 AW [id number]) Special Tests Lumbar Spine Special Tests Straight Leg Raise Test Results Pt unable to lift RLE without using UE's. LLE SLR is WNL. PT-OP-M Strength Start: 12/08/21 13:16 Freq: Status: Active Protocol: Document 12/10/21 16:00 AW (Rec: 12/10/21 16:51 AW [id number]) Hip Strength Hip Manual Muscle Testing Left Flexion (L2) 4 Good Extension (S1) 4- Good- Abduction 4- Good- External Rotation 4+ Good+ Internal Rotation 4+ Good+ Right Flexion (L2) 3 Fair Extension (S1) 3+ Fair+ Abduction 3+ Fair+ External Rotation 4 Good Internal Rotation 4 Good Knee Strength Knee Manual Muscle Testing Left Flexion (S2) 4+ Good+ Extension (L3) 5 Normal Right Flexion (S2) 4- Good- Extension (L3) 4- Good- Ankle/Foot Strength Ankle and Foot Manual Muscle Testing Left Dorsiflexion (L4) 5 Normal Plantarflexion (S1) 4- Good- Right Dorsiflexion (L4) 4+ Good+ Plantarflexion (S1) 4- Good- PT-OP-Q Treatments Start: 12/08/21 13:16 Freq: Status: Active Protocol: Document 12/26/21 10:33 AW (Rec: 12/26/21 12:30 AW [id number]) Cardio Equipment Recumbent Bicycle Duration (Minutes) 5 Resistance 5 Seat Position 1 Therapeutic Exercises Supine Exercises pelvic tilt Supine Exercise Name pelvic tilt Comments for postural awareness and preparation for bridge bridge Supine Exercise Name bridge Reps/Minutes 10 SH x 10 Comments pt states easier than prone hip ext Al stretch Supine Exercise Name HEP review Side bilateral Reps/Minutes 2 x30 Comments cued TA awareness so no LB recruit/arch- good response Prone Exercises hip ext Prone Exercise Name hip ext Side bilateral Resistance AROM Equipment Used knee ext; knee flex Reps/Minutes 2x5 Comments more challenging RLE Sidelying Exercises hip abd Sidelying Exercise Name HEP review Side bilateral Equipment Used pillow between BLEs Reps/Minutes 2x15 reps Comments cued stacked shld, hips, quad knee ext, lead heel- good abd fac response Sitting Exercises clamshells Sitting Exercise Name HEP review Resistance Lvl 2 Tb Reps/Minutes 2x15 Standing Exercises john pose Standing Exercise Name john pose - walk out from counter Equipment Used modified in standing using counter Comments HEP 2-way hip Standing Exercise Name ext/abd Side bilateral Resistance Lvl 2 Tb at knees Equipment Used handrail Reps/Minutes x10 ea Comments RLE stance more challenging gastroc stretch Standing Exercise Name gastroc stretch Side bilateral Equipment Used at wall Comments cues for no hip rotation Other Exercises sit to stand Other Exercise Name sit to stand - arms across chest Equipment Used TB2 at knees for biofeedback hip rotation Reps/Minutes 2x10 w/glute squeeze at top Comments 19 tx table Self-Care/Home Management Treatment Education Patient Education Posture PT-OP-T Assessment and Plan Start: 12/08/21 13:16 Freq: Status: Active Protocol: Document 12/26/21 10:33 AW (Rec: 12/26/21 12:30 AW [id number]) Physical Therapy Assessment Goals Three Impairment impaired dynamic balance Care Home Goal (LTG) Pt will improve DGI score from 13/24 to 19/24 or greater as a measure of improved balance and reduced falls risk. LTG Duration 03/05/22 Two Impairment RLE weakness Short Term Goal (STG) Pt will demonstrate single leg stance at least 10 seconds each leg without UE support and without excessive shear. STG Duration 01/21/22 Envelope Folding Machine Adjuster Goal (LTG) Pt will demonstrate single leg stance at least 20 seconds each leg without UE support and without excessive shear. LTG Duration 03/05/22 One Impairment lacks HEP Short Term Goal (STG) Pt will be instructed in HEP for hip mobility and LE strength to support therapy services provided in clinic 12/16/21: added self STMs w/ rolling pin, al stretch, hip abd on side, STS, supine stretches, BKFO. STG Duration 01/21/22 progressing 12/16/21 Care Home Goal (LTG) Susana will be independent with HEP for hip mobility, LE strength, and balance to manage her symptoms LTG Duration 03/05/22 Assessment Summary Assessment Pt has significant anterior pelvic tilt which appears to contribute to back pain. Continued focus on stretching hip flexors and spent extra time educating pt on postural implications of pelvic tilt. Pt is progressing well but remains weak in right hip flexor. Physical Therapy Plan Frequency and Duration Frequency of Treatment 2x/Week Duration of Treatment 12 weeks Plan of Care Start Date 12/10/21 Plan of Care End Date 03/05/22 Therapeutic Interventions Therapeutic Interventions Aquatic Therapy,Balance Training,Gait Training,Home Exercise Program,Manual Therapy,Neuromuscular Re- education,Patient/Caregiver Education,Self-Care/Home Management,Soft Tissue Mobilization,Therapeutic Activities,Therapeutic Exercises Modalities Cold Pack/Ice Massage,Electric Stimulation,Hot Packs Next Visit Focus/Plan Next Note Type Treatment Note Next Visit Plan Review HEP: seated clamshells. Consider 2-way hip extension. Consider adding bridge or prone hip ext to HEP POC: Assess response to HEP and progress as able. Revisit sit to stand to correct knee drift into adducted.
--- NOTE | 2021-12-31 11:00 | PT.OTN ---
Current Diagnoses Difficulty in walking, not elsewhere classified (01/02/22) Repeated falls (01/02/22) Physical Therapy Treatment Note PT-OP-A Visit Information Start: 12/08/21 13:16 Freq: Status: Active Protocol: Document 12/31/21 09:57 NBM (Rec: 12/31/21 10:39 NBM [id number]) Out-Patient Physical Therapy Visit Information Visit Information Visit Type Treatment Note Visit Start Time 09:55 Visit Stop Time 10:35 Total Visit Minutes 40 Visit Number 10/22 Number of LOW PRESSURE FIRER Visits 1 PT-OP-B Current Condition Start: 12/08/21 13:16 Freq: Status: Active Protocol: Document 12/10/21 16:00 AW (Rec: 12/08/21 13:28 AW [id number]) Current Condition History of Current Condition Onset Date September 2021 Current Complaints R leg feels unsteady, gives out History of Current Condition Susana Lambert) lives at [facility] with her . 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 Susana started having R hip and low back pain in September which reached a peak early October. She was seen in the ED and had imaging as below. She started using a walker due to pain and a sense of instability. She upgraded to a walking stick eventually and is now walking without a device. She now has little to no pain but states her right leg gives out on her and feels wobbly. She has been having numbness along her right medial knee. She is falling ~once per week. Prior Treatments and Tests - R hip and lumbar spine x- rays at ED on 10/07/21. R hip image shows moderate OA. Lumbar spine image shows grade 1 anterolisthesis L4-L5 and L5-S1 and multilevel degenerative changes. 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 Treatment Goals Patient/Caregiver Goals Continue to walk without assistive device. Reduce falls frequency. Increase confidence in right leg. 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 Pt is very motivated to stay active. PT-OP-C Subjective Start: 12/08/21 13:16 Freq: Status: Active Protocol: Document 12/31/21 09:57 NBM (Rec: 12/31/21 10:39 [facility] [id number]) OP-PT Subjective Patient Comments Patient Comments Pt reports she did not do her exercises on Thursday because she did a lot of walking on Thursday and her knees and hip felt it. She spent three hours cleaning at [employer] . Pt reports she has put in over 6K steps the last couple of days. Pt reports she has been mindful of keeping phone in front pocket instead of back pocket when sitting. PT-OP-D Balance Start: 12/08/21 13:16 Freq: Status: Active Protocol: Document 12/10/21 16:00 AW (Rec: 12/10/21 16:31 AW [id number]) Balance Tests Single Limb Standing Single Limb- Right 3 sec unsteady with UE support and + Trendelenberg Single Limb- Left 5 sec unsteady with UE support and + Trendelenberg PT-OP-E Functional Tests Start: 12/08/21 13:16 Freq: Status: Active Protocol: Document 12/10/21 16:00 AW (Rec: 12/10/21 16:31 AW [id number]) Functional Tests Dynamic Gait Index (DGI) Score 13 DGI Impairment Rating 40 to <60% Impaired (Score 10- 14) PT-OP-F Manual Assessment Start: 12/08/21 13:16 Freq: Status: Active Protocol: Document 12/10/21 16:00 AW (Rec: 12/10/21 16:39 AW [id number]) Manual Assessments Joint Mobility Assessment Joint Mobility Assessment Slight crepitus bilateral knees. Scour test negative in both hips. Good PA excursion in all lumbar segments. PT-OP-G Mobility & Gait Start: 12/08/21 13:16 Freq: Status: Active Protocol: Document 12/10/21 16:00 AW (Rec: 12/10/21 16:39 AW [id number]) OP Gait Assessment Comments Gait Comments Pt ambulates without device. She vaults over the right LE and has decreased RLE stance time. Right foot is excessively pronated and pt has reduced heelstrike bilaterally. Right hip in slight ER. Stair Climbing Evaluation Comments Stair Climbing Comments Step-to pattern with B rails. Pt does not need to navigate stairs in home environment but notes being extra cautious with patterning on curbs. PT-OP-H Neuro Start: 12/08/21 13:16 Freq: Status: Active Protocol: Document 12/10/21 16:00 AW (Rec: 12/10/21 16:39 AW [id number]) Sensation Evaluation Gross Sensation Gross Sensation Right LE Impaired Sensation Description Numbness Dermatome Impairments L4 Comments Summary Comments Numbness along right medial knee. Deep Tendon Reflex & Clonus Assessment Deep Tendon Reflex Bilateral Achilles Deep Tendon Reflex 0 Absent Bilateral Patellar Deep Tendon Reflex 1+ Diminished PT-OP-J Posture/Palpation/Skin Start: 12/08/21 13:16 Freq: Status: Active Protocol: Document 12/10/21 16:00 AW (Rec: 12/10/21 16:51 AW [id number]) Posture Evaluation Comments Posture Comments Pt has rightward curvature of the spine at T/L junction. Left iliac crest is slightly higher than right. PT-OP-K Range of Motion Start: 12/08/21 13:16 Freq: Status: Active Protocol: Document 12/10/21 16:00 AW (Rec: 12/10/21 16:51 AW [id number]) Hip Goniometric Range of Motion Hip bilat Hip ROM WFL Yes Comments HS lacking 15-20 degrees bilaterally in passive SLR. Tightness noted at end range IR R hip. IR:ER ratio is generally ~1:2. Hip ROM Limitations Hip ROM Limitations Soft Tissue Tightness,Pain Knee Goniometric Range of Motion Knee bilat Knee ROM WFL Yes PT-OP-L Special Tests Start: 12/08/21 13:16 Freq: Status: Active Protocol: Document 12/10/21 16:00 AW (Rec: 12/10/21 16:51 AW [id number]) Special Tests Lumbar Spine Special Tests Straight Leg Raise Test Results Pt unable to lift RLE without using UE's. LLE SLR is WNL. PT-OP-M Strength Start: 12/08/21 13:16 Freq: Status: Active Protocol: Document 12/10/21 16:00 AW (Rec: 12/10/21 16:51 AW [id number]) Hip Strength Hip Manual Muscle Testing Left Flexion (L2) 4 Good Extension (S1) 4- Good- Abduction 4- Good- External Rotation 4+ Good+ Internal Rotation 4+ Good+ Right Flexion (L2) 3 Fair Extension (S1) 3+ Fair+ Abduction 3+ Fair+ External Rotation 4 Good Internal Rotation 4 Good Knee Strength Knee Manual Muscle Testing Left Flexion (S2) 4+ Good+ Extension (L3) 5 Normal Right Flexion (S2) 4- Good- Extension (L3) 4- Good- Ankle/Foot Strength Ankle and Foot Manual Muscle Testing Left Dorsiflexion (L4) 5 Normal Plantarflexion (S1) 4- Good- Right Dorsiflexion (L4) 4+ Good+ Plantarflexion (S1) 4- Good- PT-OP-Q Treatments Start: 12/08/21 13:16 Freq: Status: Active Protocol: Document 12/31/21 09:57 NBM (Rec: 12/31/21 10:39 NBM [id number]) Cardio Equipment Recumbent Bicycle Duration (Minutes) 5 Resistance 5 Seat Position 1 Therapeutic Exercises Supine Exercises bridge Supine Exercise Name bridge - HEP Reps/Minutes 2-breath hold x 10; 2 sets Sitting Exercises clamshells Sitting Exercise Name HEP review Resistance Lvl 2 Tb Reps/Minutes 2x15 Standing Exercises john pose Standing Exercise Name john pose - walk out from counter Equipment Used modified in standing using counter Comments HEP 2-way hip Standing Exercise Name ext/abd - HEP Side bilateral Resistance Lvl 2 Tb at knees Equipment Used handrail Reps/Minutes 2x10 ea Comments RLE stance more challenging Kitchen sink Standing Exercise Name HEP Equipment Used rail Reps/Minutes 2 x 30 gastroc stretch Standing Exercise Name gastroc stretch Side bilateral Equipment Used at rail Reps/Minutes 2 x 60 Comments cues for no hip rotation Other Exercises sit to stand Other Exercise Name sit to stand - arms across chest Equipment Used TB2 at knees for biofeedback Reps/Minutes 2x10 w/glute squeeze at top Manual Therapy Treatment Soft Tissue Mobilization R LE Body Location R quad, TFL Mobilization Type Cross-Friction,Strumming Intensity/Depth Moderate Body Position Hooklying Comments Pt states thrift stores did not have a rolling pin, but she plans to look again tomorrow. Self-Care/Home Management Treatment Education Patient Education Home Exercise Program Other Education Added to HEP: Hip abduction/ extension w/ Lvl 2 Tb at knees , Bridging, thoracic elongation kitchen sink stretch - HO and Lvl2 Tb given . PT-OP-T Assessment and Plan Start: 12/08/21 13:16 Freq: Status: Active Protocol: Document 12/31/21 09:57 [facility] (Rec: 12/31/21 10:39 [facility] [id number]) Physical Therapy Assessment Goals Three Impairment impaired dynamic balance Store Sales Leader Goal (LTG) Pt will improve DGI score from 13/24 to 19/24 or greater as a measure of improved balance and reduced falls risk. LTG Duration 03/05/22 Two Impairment RLE weakness Short Term Goal (STG) Pt will demonstrate single leg stance at least 10 seconds each leg without UE support and without excessive shear. STG Duration 01/21/22 Store Sales Leader Goal (LTG) Pt will demonstrate single leg stance at least 20 seconds each leg without UE support and without excessive shear. LTG Duration 03/05/22 One Impairment lacks HEP Short Term Goal (STG) Pt will be instructed in HEP for hip mobility and LE strength to support therapy services provided in clinic 12/16/21: added self STMs w/ rolling pin, chris stretch, hip abd on side, STS, supine stretches, BKFO. STG Duration 01/21/22 progressing 12/16/21 Intermediate Goal (LTG) Susana will be independent with HEP for hip mobility, LE strength, and balance to manage her symptoms LTG Duration 03/05/22 Assessment Summary Assessment Pt requires cues for upright posture and reducting lumbar hyperextension as well as breathholding - self- correction of breath holding improves by end of session. Palpable tightness in R TFL improves w/ manual therapy. Added to HEP: Hip abduction/ extension w/ Lvl 2 Tb at knees , Bridging, thoracic elongation kitchen sink stretch - HO and Lvl2 Tb given . Lvl2 Tb dipensed for HEP, increasing resistance from Lvl 1 to Lvl 2 for sit to stands and seated hip abduction. Physical Therapy Plan Frequency and Duration Frequency of Treatment 2x/Week Plan of Care Start Date 12/10/21 Plan of Care End Date 03/05/22 Therapeutic Interventions Therapeutic Interventions Aquatic Therapy,Balance Training,Gait Training,Home Exercise Program,Manual Therapy,Neuromuscular Re- education,Patient/Caregiver Education,Self-Care/Home Management,Soft Tissue Mobilization,Therapeutic Activities,Therapeutic Exercises Modalities Cold Pack/Ice Massage,Electric Stimulation,Hot Packs Next Visit Focus/Plan Next Note Type Treatment Note Next Visit Plan Review HEP: standing hip abd/ ext, bridge. Consider adding prone hip ext to HEP POC: Assess response to HEP and progress as able.
--- NOTE | 2022-01-02 12:06 | PT.OTN ---
Current Diagnoses Difficulty in walking, not elsewhere classified (01/02/22) Repeated falls (01/02/22) Physical Therapy Treatment Note PT-OP-A Visit Information Start: 12/08/21 13:16 Freq: Status: Active Protocol: Document 01/02/22 11:16 AW (Rec: 01/02/22 12:06 AW [id number]) Out-Patient Physical Therapy Visit Information Visit Information Visit Type Treatment Note Visit Start Time 11:16 Visit Stop Time 12:00 Total Visit Minutes 44 Visit Number 8/19 to KX Number of METAL FILER Visits 0 Evaluation Information Evaluation Date 12/10/21 PT-OP-B Current Condition Start: 12/08/21 13:16 Freq: Status: Active Protocol: Document 12/10/21 16:00 AW (Rec: 12/08/21 13:28 AW [id number]) Current Condition History of Current Condition Onset Date September 2021 Current Complaints R leg feels unsteady, gives out History of Current Condition Susana Lambert) lives at [facility] with her . 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 Susana started having R hip and low back pain in September which reached a peak early October. She was seen in the ED and had imaging as below. She started using a walker due to pain and a sense of instability. She upgraded to a walking stick eventually and is now walking without a device. She now has little to no pain but states her right leg gives out on her and feels wobbly. She has been having numbness along her right medial knee. She is falling ~once per week. Prior Treatments and Tests - R hip and lumbar spine x- rays at ED on 10/07/21. R hip image shows moderate OA. Lumbar spine image shows grade 1 anterolisthesis L4-L5 and L5-S1 and multilevel degenerative changes. 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 Treatment Goals Patient/Caregiver Goals Continue to walk without assistive device. Reduce falls frequency. Increase confidence in right leg. 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 Pt is very motivated to stay active. PT-OP-C Subjective Start: 12/08/21 13:16 Freq: Status: Active Protocol: Document 01/02/22 11:16 AW (Rec: 01/02/22 12:06 AW [id number]) OP-PT Subjective Patient Comments Patient Comments When I went for my walk this morning, I almost felt like I was walking with my normal gait. Patient Reported Progress Improving PT-OP-D Balance Start: 12/08/21 13:16 Freq: Status: Active Protocol: Document 12/10/21 16:00 AW (Rec: 12/10/21 16:31 AW [id number]) Balance Tests Single Limb Standing Single Limb- Right 3 sec unsteady with UE support and + Trendelenberg Single Limb- Left 5 sec unsteady with UE support and + Trendelenberg PT-OP-E Functional Tests Start: 12/08/21 13:16 Freq: Status: Active Protocol: Document 12/10/21 16:00 AW (Rec: 12/10/21 16:31 AW [id number]) Functional Tests Dynamic Gait Index (DGI) Score 13 DGI Impairment Rating 40 to <60% Impaired (Score 10- 14) PT-OP-F Manual Assessment Start: 12/08/21 13:16 Freq: Status: Active Protocol: Document 12/10/21 16:00 AW (Rec: 12/10/21 16:39 AW [id number]) Manual Assessments Joint Mobility Assessment Joint Mobility Assessment Slight crepitus bilateral knees. Scour test negative in both hips. Good PA excursion in all lumbar segments. PT-OP-G Mobility & Gait Start: 12/08/21 13:16 Freq: Status: Active Protocol: Document 12/10/21 16:00 AW (Rec: 12/10/21 16:39 AW [id number]) OP Gait Assessment Comments Gait Comments Pt ambulates without device. She vaults over the right LE and has decreased RLE stance time. Right foot is excessively pronated and pt has reduced heelstrike bilaterally. Right hip in slight ER. Stair Climbing Evaluation Comments Stair Climbing Comments Step-to pattern with B rails. Pt does not need to navigate stairs in home environment but notes being extra cautious with patterning on curbs. PT-OP-H Neuro Start: 12/08/21 13:16 Freq: Status: Active Protocol: Document 12/10/21 16:00 AW (Rec: 12/10/21 16:39 AW [id number]) Sensation Evaluation Gross Sensation Gross Sensation Right LE Impaired Sensation Description Numbness Dermatome Impairments L4 Comments Summary Comments Numbness along right medial knee. Deep Tendon Reflex & Clonus Assessment Deep Tendon Reflex Bilateral Achilles Deep Tendon Reflex 0 Absent Bilateral Patellar Deep Tendon Reflex 1+ Diminished PT-OP-J Posture/Palpation/Skin Start: 12/08/21 13:16 Freq: Status: Active Protocol: Document 12/10/21 16:00 AW (Rec: 12/10/21 16:51 AW [id number]) Posture Evaluation Comments Posture Comments Pt has rightward curvature of the spine at T/L junction. Left iliac crest is slightly higher than right. PT-OP-K Range of Motion Start: 12/08/21 13:16 Freq: Status: Active Protocol: Document 12/10/21 16:00 AW (Rec: 12/10/21 16:51 AW [id number]) Hip Goniometric Range of Motion Hip bilat Hip ROM WFL Yes Comments HS lacking 15-20 degrees bilaterally in passive SLR. Tightness noted at end range IR R hip. IR:ER ratio is generally ~1:2. Hip ROM Limitations Hip ROM Limitations Soft Tissue Tightness,Pain Knee Goniometric Range of Motion Knee bilat Knee ROM WFL Yes PT-OP-L Special Tests Start: 12/08/21 13:16 Freq: Status: Active Protocol: Document 12/10/21 16:00 AW (Rec: 12/10/21 16:51 AW [id number]) Special Tests Lumbar Spine Special Tests Straight Leg Raise Test Results Pt unable to lift RLE without using UE's. LLE SLR is WNL. PT-OP-M Strength Start: 12/08/21 13:16 Freq: Status: Active Protocol: Document 12/10/21 16:00 AW (Rec: 12/10/21 16:51 AW [id number]) Hip Strength Hip Manual Muscle Testing Left Flexion (L2) 4 Good Extension (S1) 4- Good- Abduction 4- Good- External Rotation 4+ Good+ Internal Rotation 4+ Good+ Right Flexion (L2) 3 Fair Extension (S1) 3+ Fair+ Abduction 3+ Fair+ External Rotation 4 Good Internal Rotation 4 Good Knee Strength Knee Manual Muscle Testing Left Flexion (S2) 4+ Good+ Extension (L3) 5 Normal Right Flexion (S2) 4- Good- Extension (L3) 4- Good- Ankle/Foot Strength Ankle and Foot Manual Muscle Testing Left Dorsiflexion (L4) 5 Normal Plantarflexion (S1) 4- Good- Right Dorsiflexion (L4) 4+ Good+ Plantarflexion (S1) 4- Good- PT-OP-Q Treatments Start: 12/08/21 13:16 Freq: Status: Active Protocol: Document 01/02/22 11:16 AW (Rec: 01/02/22 12:06 AW [id number]) Cardio Equipment Recumbent Bicycle Duration (Minutes) 5 Resistance 5 Seat Position 1 Therapeutic Exercises Supine Exercises pelvic tilt Supine Exercise Name pelvic tilt Comments for postural awareness and preparation for bridge bridge Supine Exercise Name bridge Reps/Minutes 2-breath hold x 10; 2 sets Comments pt states easier than prone hip ext piriformis stretch Supine Exercise Name piriformis stretch- opp LE straight Side bilateral Resistance opp foot planted Reps/Minutes 30 SH x 4 Comments R anterior hip pinch with opp knee bent modify opp straight- good PF str R SKTC Supine Exercise Name SKTC-HEP Side bilateral Reps/Minutes 30 SH x 4 Comments R tighter- good feedback stretch if slow so no cramp TFL quick Sidelying Exercises hip abd Sidelying Exercise Name HEP review Side bilateral Equipment Used pillow between BLEs Reps/Minutes 2x15 reps Comments cued stacked shld, hips, quad knee ext, lead heel- good abd fac response Standing Exercises SLS Standing Exercise Name SLS Side bilateral Reps/Minutes ~10 sec reps LLE; ~6 sec reps RLE step up/down Standing Exercise Name step up only today - fwd, lateral Side bilateral Resistance 4 step Reps/Minutes x10 each direction Comments mild irritation L knee but not limiting band walk Standing Exercise Name band walk - lateral Resistance yellow loop Reps/Minutes 15' lap x 2 Comments dc for now due to knee irritation john pose Standing Exercise Name ojhn pose - walk out from counter Equipment Used modified in standing using counter Comments HEP gastroc stretch Standing Exercise Name gastroc stretch Side bilateral Equipment Used at rail Reps/Minutes 2 x 60 Comments cues for no hip rotation Other Exercises sit to stand Other Exercise Name sit to stand - arms across chest Resistance 1-breath pause at 1/2 depth on descent Equipment Used TB2 at knees for biofeedback hip rotation Reps/Minutes 2x10 w/glute squeeze at top Comments 19 tx table PT-OP-T Assessment and Plan Start: 12/08/21 13:16 Freq: Status: Active Protocol: Document 01/02/22 11:16 AW (Rec: 01/02/22 12:06 AW [id number]) Physical Therapy Assessment Goals Three Impairment impaired dynamic balance Jigmaker Goal (LTG) Pt will improve DGI score from 13/24 to 19/24 or greater as a measure of improved balance and reduced falls risk. LTG Duration 03/05/22 Two Impairment RLE weakness Short Term Goal (STG) Pt will demonstrate single leg stance at least 10 seconds each leg without UE support and without excessive shear. STG Duration 01/21/22 Custodial Goal (LTG) Pt will demonstrate single leg stance at least 20 seconds each leg without UE support and without excessive shear. LTG Duration 03/05/22 One Impairment lacks HEP Short Term Goal (STG) Pt will be instructed in HEP for hip mobility and LE strength to support therapy services provided in clinic 12/16/21: added self STMs w/ rolling pin, chris stretch, hip abd on side, STS, supine stretches, BKFO. STG Duration 01/21/22 progressing 12/16/21 Jigmaker Goal (LTG) Susana will be independent with HEP for hip mobility, LE strength, and balance to manage her symptoms LTG Duration 03/05/22 Assessment Summary Assessment Susana reports left knee irritation descending curbs and stairs. Worked on step ups today. Also added brief pause on descent during sit to stand to improve eccentric control. Susana is progressing well overall and feeling like her walking is getting back to normal. Discussed adding some balance work to her sessions in the next few weeks and pt agreed. Physical Therapy Plan Next Visit Focus/Plan Next Note Type Treatment Note Next Visit Plan Progress sit to stands as able ; continue to work on eccentric control with pause at varying heights. Revisit step ups. Add static balance.
--- NOTE | 2022-01-07 15:32 | PT-OP ANOTE ---
Pt did not show for 1515 appointment which is out of character for her. Phoned pt who states she called yesterday and left a message to cancel today's appointment. Reminded her of next scheduled appointment.
--- NOTE | 2022-01-09 16:02 | PT.OTN ---
Current Diagnoses Difficulty in walking, not elsewhere classified (01/09/22) Repeated falls (01/09/22) Physical Therapy Treatment Note PT-OP-A Visit Information Start: 12/08/21 13:16 Freq: Status: Active Protocol: Document 01/02/22 11:16 AW (Rec: 01/02/22 12:06 AW [id number]) Out-Patient Physical Therapy Visit Information Visit Information Visit Type Treatment Note Visit Start Time 11:16 Visit Stop Time 12:00 Total Visit Minutes 44 Visit Number 8/ to KX Number of AUTHOR Visits 0 Evaluation Information Evaluation Date 12/10/21 PT-OP-B Current Condition Start: 12/08/21 13:16 Freq: Status: Active Protocol: Document 12/10/21 16:00 AW (Rec: 12/08/21 13:28 AW [id number]) Current Condition History of Current Condition Onset Date September 2021 Current Complaints R leg feels unsteady, gives out History of Current Condition Susana Lambert) lives at [facility] with her . 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 Susana started having R hip and low back pain in September which reached a peak early October. She was seen in the ED and had imaging as below. She started using a walker due to pain and a sense of instability. She upgraded to a walking stick eventually and is now walking without a device. She now has little to no pain but states her right leg gives out on her and feels wobbly. She has been having numbness along her right medial knee. She is falling ~once per week. Prior Treatments and Tests - R hip and lumbar spine x- rays at ED on 10/07/21. R hip image shows moderate OA. Lumbar spine image shows grade 1 anterolisthesis L4-L5 and L5-S1 and multilevel degenerative changes. 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 Treatment Goals Patient/Caregiver Goals Continue to walk without assistive device. Reduce falls frequency. Increase confidence in right leg. 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 Pt is very motivated to stay active. PT-OP-C Subjective Start: 12/08/21 13:16 Freq: Status: Active Protocol: Document 01/02/22 11:16 AW (Rec: 01/02/22 12:06 AW [id number]) OP-PT Subjective Patient Comments Patient Comments When I went for my walk this morning, I almost felt like I was walking with my normal gait. Patient Reported Progress Improving PT-OP-D Balance Start: 12/08/21 13:16 Freq: Status: Active Protocol: Document 12/10/21 16:00 AW (Rec: 12/10/21 16:31 AW [id number]) Balance Tests Single Limb Standing Single Limb- Right 3 sec unsteady with UE support and + Trendelenberg Single Limb- Left 5 sec unsteady with UE support and + Trendelenberg PT-OP-E Functional Tests Start: 12/08/21 13:16 Freq: Status: Active Protocol: Document 12/10/21 16:00 AW (Rec: 12/10/21 16:31 AW [id number]) Functional Tests Dynamic Gait Index (DGI) Score 13 DGI Impairment Rating 40 to <60% Impaired (Score 10- 14) PT-OP-F Manual Assessment Start: 12/08/21 13:16 Freq: Status: Active Protocol: Document 12/10/21 16:00 AW (Rec: 12/10/21 16:39 AW [id number]) Manual Assessments Joint Mobility Assessment Joint Mobility Assessment Slight crepitus bilateral knees. Scour test negative in both hips. Good PA excursion in all lumbar segments. PT-OP-G Mobility & Gait Start: 12/08/21 13:16 Freq: Status: Active Protocol: Document 12/10/21 16:00 AW (Rec: 12/10/21 16:39 AW [id number]) OP Gait Assessment Comments Gait Comments Pt ambulates without device. She vaults over the right LE and has decreased RLE stance time. Right foot is excessively pronated and pt has reduced heelstrike bilaterally. Right hip in slight ER. Stair Climbing Evaluation Comments Stair Climbing Comments Step-to pattern with B rails. Pt does not need to navigate stairs in home environment but notes being extra cautious with patterning on curbs. PT-OP-H Neuro Start: 12/08/21 13:16 Freq: Status: Active Protocol: Document 12/10/21 16:00 AW (Rec: 12/10/21 16:39 AW [id number]) Sensation Evaluation Gross Sensation Gross Sensation Right LE Impaired Sensation Description Numbness Dermatome Impairments L4 Comments Summary Comments Numbness along right medial knee. Deep Tendon Reflex & Clonus Assessment Deep Tendon Reflex Bilateral Achilles Deep Tendon Reflex 0 Absent Bilateral Patellar Deep Tendon Reflex 1+ Diminished PT-OP-J Posture/Palpation/Skin Start: 12/08/21 13:16 Freq: Status: Active Protocol: Document 12/10/21 16:00 AW (Rec: 12/10/21 16:51 AW [id number]) Posture Evaluation Comments Posture Comments Pt has rightward curvature of the spine at T/L junction. Left iliac crest is slightly higher than right. PT-OP-K Range of Motion Start: 12/08/21 13:16 Freq: Status: Active Protocol: Document 12/10/21 16:00 AW (Rec: 12/10/21 16:51 AW [id number]) Hip Goniometric Range of Motion Hip bilat Hip ROM WFL Yes Comments HS lacking 15-20 degrees bilaterally in passive SLR. Tightness noted at end range IR R hip. IR:ER ratio is generally ~1:2. Hip ROM Limitations Hip ROM Limitations Soft Tissue Tightness,Pain Knee Goniometric Range of Motion Knee bilat Knee ROM WFL Yes PT-OP-L Special Tests Start: 12/08/21 13:16 Freq: Status: Active Protocol: Document 12/10/21 16:00 AW (Rec: 12/10/21 16:51 AW [id number]) Special Tests Lumbar Spine Special Tests Straight Leg Raise Test Results Pt unable to lift RLE without using UE's. LLE SLR is WNL. PT-OP-M Strength Start: 12/08/21 13:16 Freq: Status: Active Protocol: Document 12/10/21 16:00 AW (Rec: 12/10/21 16:51 AW [id number]) Hip Strength Hip Manual Muscle Testing Left Flexion (L2) 4 Good Extension (S1) 4- Good- Abduction 4- Good- External Rotation 4+ Good+ Internal Rotation 4+ Good+ Right Flexion (L2) 3 Fair Extension (S1) 3+ Fair+ Abduction 3+ Fair+ External Rotation 4 Good Internal Rotation 4 Good Knee Strength Knee Manual Muscle Testing Left Flexion (S2) 4+ Good+ Extension (L3) 5 Normal Right Flexion (S2) 4- Good- Extension (L3) 4- Good- Ankle/Foot Strength Ankle and Foot Manual Muscle Testing Left Dorsiflexion (L4) 5 Normal Plantarflexion (S1) 4- Good- Right Dorsiflexion (L4) 4+ Good+ Plantarflexion (S1) 4- Good- PT-OP-Q Treatments Start: 12/08/21 13:16 Freq: Status: Active Protocol: Document 01/02/22 11:16 AW (Rec: 01/02/22 12:06 AW [id number]) Cardio Equipment Recumbent Bicycle Duration (Minutes) 5 Resistance 5 Seat Position 1 Therapeutic Exercises Supine Exercises pelvic tilt Supine Exercise Name pelvic tilt Comments for postural awareness and preparation for bridge bridge Supine Exercise Name bridge Reps/Minutes 2-breath hold x 10; 2 sets Comments pt states easier than prone hip ext piriformis stretch Supine Exercise Name piriformis stretch- opp LE straight Side bilateral Resistance opp foot planted Reps/Minutes 30 SH x 4 Comments R anterior hip pinch with opp knee bent modify opp straight- good PF str R SKTC Supine Exercise Name SKTC-HEP Side bilateral Reps/Minutes 30 SH x 4 Comments R tighter- good feedback stretch if slow so no cramp TFL quick Sidelying Exercises hip abd Sidelying Exercise Name HEP review Side bilateral Equipment Used pillow between BLEs Reps/Minutes 2x15 reps Comments cued stacked shld, hips, quad knee ext, lead heel- good abd fac response Standing Exercises SLS Standing Exercise Name SLS Side bilateral Reps/Minutes ~10 sec reps LLE; ~6 sec reps RLE step up/down Standing Exercise Name step up only today - fwd, lateral Side bilateral Resistance 4 step Reps/Minutes x10 each direction Comments mild irritation L knee but not limiting band walk Standing Exercise Name band walk - lateral Resistance yellow loop Reps/Minutes 15' lap x 2 Comments dc for now due to knee irritation john pose Standing Exercise Name john pose - walk out from counter Equipment Used modified in standing using counter Comments HEP gastroc stretch Standing Exercise Name gastroc stretch Side bilateral Equipment Used at rail Reps/Minutes 2 x 60 Comments cues for no hip rotation Other Exercises sit to stand Other Exercise Name sit to stand - arms across chest Resistance 1-breath pause at 1/2 depth on descent Equipment Used TB2 at knees for biofeedback hip rotation Reps/Minutes 2x10 w/glute squeeze at top Comments 19 tx table PT-OP-T Assessment and Plan Start: 12/08/21 13:16 Freq: Status: Active Protocol: Document 01/02/22 11:16 AW (Rec: 01/02/22 12:06 AW [id number]) Physical Therapy Assessment Goals Three Impairment impaired dynamic balance Clinical Laboratory Medical Director Goal (LTG) Pt will improve DGI score from 13/24 to 19/24 or greater as a measure of improved balance and reduced falls risk. LTG Duration 03/05/22 Two Impairment RLE weakness Short Term Goal (STG) Pt will demonstrate single leg stance at least 10 seconds each leg without UE support and without excessive shear. STG Duration 01/21/22 Assisted Goal (LTG) Pt will demonstrate single leg stance at least 20 seconds each leg without UE support and without excessive shear. LTG Duration 03/05/22 One Impairment lacks HEP Short Term Goal (STG) Pt will be instructed in HEP for hip mobility and LE strength to support therapy services provided in clinic 12/16/21: added self STMs w/ rolling pin, chris stretch, hip abd on side, STS, supine stretches, BKFO. STG Duration 01/21/22 progressing 12/16/21 Clinical Laboratory Medical Director Goal (LTG) Susana will be independent with HEP for hip mobility, LE strength, and balance to manage her symptoms LTG Duration 03/05/22 Assessment Summary Assessment Susana reports left knee irritation descending curbs and stairs. Worked on step ups today. Also added brief pause on descent during sit to stand to improve eccentric control. Susana is progressing well overall and feeling like her walking is getting back to normal. Discussed adding some balance work to her sessions in the next few weeks and pt agreed. Physical Therapy Plan Next Visit Focus/Plan Next Note Type Treatment Note Next Visit Plan Progress sit to stands as able ; continue to work on eccentric control with pause at varying heights. Revisit step ups. Add static balance.
--- NOTE | 2022-01-09 17:09 | PT.OTN ---
Current Diagnoses Difficulty in walking, not elsewhere classified (01/09/22) Repeated falls (01/09/22) Physical Therapy Treatment Note PT-OP-A Visit Information Start: 12/08/21 13:16 Freq: Status: Active Protocol: Document 01/09/22 15:17 AW (Rec: 01/09/22 17:08 AW [id number]) Out-Patient Physical Therapy Visit Information Visit Information Visit Type Progress Note Visit Start Time 16:00 Visit Stop Time 16:45 Total Visit Minutes 45 Visit Number 9/19 to KX Number of EMPLOYEE COUNSELOR Visits 0 Evaluation Information Evaluation Date 12/10/21 PT-OP-B Current Condition Start: 12/08/21 13:16 Freq: Status: Active Protocol: Document 12/10/21 16:00 AW (Rec: 12/08/21 13:28 AW [id number]) Current Condition History of Current Condition Onset Date September 2021 Current Complaints R leg feels unsteady, gives out History of Current Condition Susana Lambert) lives at [facility] with her . 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 Susana started having R hip and low back pain in September which reached a peak early October. She was seen in the ED and had imaging as below. She started using a walker due to pain and a sense of instability. She upgraded to a walking stick eventually and is now walking without a device. She now has little to no pain but states her right leg gives out on her and feels wobbly. She has been having numbness along her right medial knee. She is falling ~once per week. Prior Treatments and Tests - R hip and lumbar spine x- rays at ED on 10/07/21. R hip image shows moderate OA. Lumbar spine image shows grade 1 anterolisthesis L4-L5 and L5-S1 and multilevel degenerative changes. 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 Treatment Goals Patient/Caregiver Goals Continue to walk without assistive device. Reduce falls frequency. Increase confidence in right leg. 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 Pt is very motivated to stay active. PT-OP-C Subjective Start: 12/08/21 13:16 Freq: Status: Active Protocol: Document 01/09/22 15:17 AW (Rec: 01/09/22 17:08 AW [id number]) OP-PT Subjective Patient Comments Patient Comments Visited her daughter in [place] over the weekend and walked a few hours walking around [facility]. PT-OP-D Balance Start: 12/08/21 13:16 Freq: Status: Active Protocol: Document 12/10/21 16:00 AW (Rec: 12/10/21 16:31 AW [id number]) Balance Tests Single Limb Standing Single Limb- Right 3 sec unsteady with UE support and + Trendelenberg Single Limb- Left 5 sec unsteady with UE support and + Trendelenberg PT-OP-E Functional Tests Start: 12/08/21 13:16 Freq: Status: Active Protocol: Document 12/10/21 16:00 AW (Rec: 12/10/21 16:31 AW [id number]) Functional Tests Dynamic Gait Index (DGI) Score 13 DGI Impairment Rating 40 to <60% Impaired (Score 10- 14) PT-OP-F Manual Assessment Start: 12/08/21 13:16 Freq: Status: Active Protocol: Document 12/10/21 16:00 AW (Rec: 12/10/21 16:39 AW [id number]) Manual Assessments Joint Mobility Assessment Joint Mobility Assessment Slight crepitus bilateral knees. Scour test negative in both hips. Good PA excursion in all lumbar segments. PT-OP-G Mobility & Gait Start: 12/08/21 13:16 Freq: Status: Active Protocol: Document 12/10/21 16:00 AW (Rec: 12/10/21 16:39 AW [id number]) OP Gait Assessment Comments Gait Comments Pt ambulates without device. She vaults over the right LE and has decreased RLE stance time. Right foot is excessively pronated and pt has reduced heelstrike bilaterally. Right hip in slight ER. Stair Climbing Evaluation Comments Stair Climbing Comments Step-to pattern with B rails. Pt does not need to navigate stairs in home environment but notes being extra cautious with patterning on curbs. PT-OP-H Neuro Start: 12/08/21 13:16 Freq: Status: Active Protocol: Document 12/10/21 16:00 AW (Rec: 12/10/21 16:39 AW [id number]) Sensation Evaluation Gross Sensation Gross Sensation Right LE Impaired Sensation Description Numbness Dermatome Impairments L4 Comments Summary Comments Numbness along right medial knee. Deep Tendon Reflex & Clonus Assessment Deep Tendon Reflex Bilateral Achilles Deep Tendon Reflex 0 Absent Bilateral Patellar Deep Tendon Reflex 1+ Diminished PT-OP-J Posture/Palpation/Skin Start: 12/08/21 13:16 Freq: Status: Active Protocol: Document 12/10/21 16:00 AW (Rec: 12/10/21 16:51 AW [id number]) Posture Evaluation Comments Posture Comments Pt has rightward curvature of the spine at T/L junction. Left iliac crest is slightly higher than right. PT-OP-K Range of Motion Start: 12/08/21 13:16 Freq: Status: Active Protocol: Document 12/10/21 16:00 AW (Rec: 12/10/21 16:51 AW [id number]) Hip Goniometric Range of Motion Hip bilat Hip ROM WFL Yes Comments HS lacking 15-20 degrees bilaterally in passive SLR. Tightness noted at end range IR R hip. IR:ER ratio is generally ~1:2. Hip ROM Limitations Hip ROM Limitations Soft Tissue Tightness,Pain Knee Goniometric Range of Motion Knee bilat Knee ROM WFL Yes PT-OP-L Special Tests Start: 12/08/21 13:16 Freq: Status: Active Protocol: Document 12/10/21 16:00 AW (Rec: 12/10/21 16:51 AW [id number]) Special Tests Lumbar Spine Special Tests Straight Leg Raise Test Results Pt unable to lift RLE without using UE's. LLE SLR is WNL. PT-OP-M Strength Start: 12/08/21 13:16 Freq: Status: Active Protocol: Document 12/10/21 16:00 AW (Rec: 12/10/21 16:51 AW [id number]) Hip Strength Hip Manual Muscle Testing Left Flexion (L2) 4 Good Extension (S1) 4- Good- Abduction 4- Good- External Rotation 4+ Good+ Internal Rotation 4+ Good+ Right Flexion (L2) 3 Fair Extension (S1) 3+ Fair+ Abduction 3+ Fair+ External Rotation 4 Good Internal Rotation 4 Good Knee Strength Knee Manual Muscle Testing Left Flexion (S2) 4+ Good+ Extension (L3) 5 Normal Right Flexion (S2) 4- Good- Extension (L3) 4- Good- Ankle/Foot Strength Ankle and Foot Manual Muscle Testing Left Dorsiflexion (L4) 5 Normal Plantarflexion (S1) 4- Good- Right Dorsiflexion (L4) 4+ Good+ Plantarflexion (S1) 4- Good- PT-OP-Q Treatments Start: 12/08/21 13:16 Freq: Status: Active Protocol: Document 01/09/22 15:17 AW (Rec: 01/09/22 17:08 AW [id number]) Cardio Equipment Recumbent Bicycle Duration (Minutes) 5 Resistance 5 Seat Position 1 Therapeutic Exercises Standing Exercises SLS Standing Exercise Name SLS Side bilateral Reps/Minutes ~10 sec reps RLE; ~6 sec reps LLE Comments no change; pt benefits from mirror to visualize pelvic level step up/down Standing Exercise Name step up only today - fwd Side bilateral Resistance 4 step Reps/Minutes x10 Comments cued weight shift over stance leg, glute drive 2-way hip Standing Exercise Name ext/abd - HEP Side bilateral Resistance Lvl 2 Tb at knees Equipment Used handrail Reps/Minutes 2x10 ea Comments reviewed for HEP gastroc stretch Standing Exercise Name gastroc stretch Side bilateral Equipment Used at rail Reps/Minutes 2 x 60 Comments cues for no hip rotation Gait Training Gait Activity DGI Description DGI Device Used none Level of Assistance SBA Comments . See copy scanned to EMR hurdles Description hurdles Level of Assistance SBA/CGA Surface firm Treatment Focus SL stability Comments Pt tends to circumduct at hip (right worse than left) but responds well to cues for forward translation PT-OP-T Assessment and Plan Start: 12/08/21 13:16 Freq: Status: Active Protocol: Document 01/09/22 15:17 AW (Rec: 01/09/22 17:08 AW [id number]) Physical Therapy Assessment Rehab Potential Rehabilitation Potential Good Goals Three Impairment impaired dynamic balance Care Home Goal (LTG) Pt will improve DGI score from to 19 or greater as a measure of improved balance and reduced falls risk. 01/09/22 - Pt scores today. LTG Duration 03/05/22 Two Impairment RLE weakness Short Term Goal (STG) Pt will demonstrate single leg stance at least 10 seconds each leg without UE support and without excessive shear. STG Duration 01/21/22 Care Home Goal (LTG) Pt will demonstrate single leg stance at least 20 seconds each leg without UE support and without excessive shear. LTG Duration 03/05/22 One Impairment lacks HEP Short Term Goal (STG) Pt will be instructed in HEP for hip mobility and LE strength to support therapy services provided in clinic 12/16/21: added self STMs w/ rolling pin, chris stretch, hip abd on side, STS, supine stretches, BKFO. STG Duration 01/21/22 progressing 12/16/21 Care Home Goal (LTG) Susana will be independent with HEP for hip mobility, LE strength, and balance to manage her symptoms LTG Duration 03/05/22 Progress Towards Goals Progress Towards Goals Progressing Toward Goals,Slow Progress - Other Progress Comments Susana has improved her Dynamic Gait Index from to . Single leg stance is improving slowly but pt still has contralateral hip drop - especially in LLE stance. She is still having focal weakness in the right hip flexors. Feel she would benefit from continued therapy to improve her balance and single-leg stability further. Assessment Summary Assessment Susana feels she is approaching a plateau in progress. Left knee pain remains a primary limiting factor in gait and curb navigation. Discussed a focused plan to work on balance and gait over the next few sessions as she likely nears discharge. Physical Therapy Plan Frequency and Duration Frequency of Treatment 2x/Week Plan of Care Start Date 12/10/21 Plan of Care End Date 03/05/22 Therapeutic Interventions Therapeutic Interventions Aquatic Therapy,Balance Training,Gait Training,Home Exercise Program,Manual Therapy,Neuromuscular Re- education,Patient/Caregiver Education,Self-Care/Home Management,Soft Tissue Mobilization,Therapeutic Activities,Therapeutic Exercises Modalities Cold Pack/Ice Massage,Electric Stimulation,Hot Packs Next Visit Focus/Plan Next Note Type Treatment Note Next Visit Plan Progress sit to stands as able ; continue to work on eccentric control with pause at varying heights. Revisit step ups. Hurdles. Add static balance for HEP. Work on dynamic balance in clinic.
--- NOTE | 2022-01-14 11:18 | PT.OTN ---
Current Diagnoses Difficulty in walking, not elsewhere classified (01/14/22) Repeated falls (01/14/22) Physical Therapy Treatment Note PT-OP-A Visit Information Start: 12/08/21 13:16 Freq: Status: Active Protocol: Document 01/14/22 10:31 SP (Rec: 01/14/22 11:41 SP [id number]) Out-Patient Physical Therapy Visit Information Visit Information Visit Type Treatment Note Visit Start Time 10:31 Visit Stop Time 11:18 Total Visit Minutes 47 Visit Number 01/22 to KX Number of DROP CLIPPER Visits 1 Evaluation Information Evaluation Date 12/10/21 PT-OP-B Current Condition Start: 12/08/21 13:16 Freq: Status: Active Protocol: Document 12/10/21 16:00 AW (Rec: 12/08/21 13:28 AW [id number]) Current Condition History of Current Condition Onset Date September 2021 Current Complaints R leg feels unsteady, gives out History of Current Condition Susana Lambert) lives at [facility] with her . 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 Susana started having R hip and low back pain in September which reached a peak early October. She was seen in the ED and had imaging as below. She started using a walker due to pain and a sense of instability. She upgraded to a walking stick eventually and is now walking without a device. She now has little to no pain but states her right leg gives out on her and feels wobbly. She has been having numbness along her right medial knee. She is falling ~once per week. Prior Treatments and Tests - R hip and lumbar spine x- rays at ED on 10/07/21. R hip image shows moderate OA. Lumbar spine image shows grade 1 anterolisthesis L4-L5 and L5-S1 and multilevel degenerative changes. 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 Treatment Goals Patient/Caregiver Goals Continue to walk without assistive device. Reduce falls frequency. Increase confidence in right leg. 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 Pt is very motivated to stay active. PT-OP-C Subjective Start: 12/08/21 13:16 Freq: Status: Active Protocol: Document 01/14/22 10:31 SP (Rec: 01/14/22 11:41 SP [id number]) OP-PT Subjective Patient Comments Patient Comments Pt reports her R posterolateral hip and low back have been hurting over the weekend. She reports has a chiropractor appt this afternoon. PT-OP-D Balance Start: 12/08/21 13:16 Freq: Status: Active Protocol: Document 12/10/21 16:00 AW (Rec: 12/10/21 16:31 AW [id number]) Balance Tests Single Limb Standing Single Limb- Right 3 sec unsteady with UE support and + Trendelenberg Single Limb- Left 5 sec unsteady with UE support and + Trendelenberg PT-OP-E Functional Tests Start: 12/08/21 13:16 Freq: Status: Active Protocol: Document 12/10/21 16:00 AW (Rec: 12/10/21 16:31 AW [id number]) Functional Tests Dynamic Gait Index (DGI) Score 13 DGI Impairment Rating 40 to <60% Impaired (Score 10- 14) PT-OP-F Manual Assessment Start: 12/08/21 13:16 Freq: Status: Active Protocol: Document 12/10/21 16:00 AW (Rec: 12/10/21 16:39 AW [id number]) Manual Assessments Joint Mobility Assessment Joint Mobility Assessment Slight crepitus bilateral knees. Scour test negative in both hips. Good PA excursion in all lumbar segments. PT-OP-G Mobility & Gait Start: 12/08/21 13:16 Freq: Status: Active Protocol: Document 12/10/21 16:00 AW (Rec: 12/10/21 16:39 AW [id number]) OP Gait Assessment Comments Gait Comments Pt ambulates without device. She vaults over the right LE and has decreased RLE stance time. Right foot is excessively pronated and pt has reduced heelstrike bilaterally. Right hip in slight ER. Stair Climbing Evaluation Comments Stair Climbing Comments Step-to pattern with B rails. Pt does not need to navigate stairs in home environment but notes being extra cautious with patterning on curbs. PT-OP-H Neuro Start: 12/08/21 13:16 Freq: Status: Active Protocol: Document 12/10/21 16:00 AW (Rec: 12/10/21 16:39 AW [id number]) Sensation Evaluation Gross Sensation Gross Sensation Right LE Impaired Sensation Description Numbness Dermatome Impairments L4 Comments Summary Comments Numbness along right medial knee. Deep Tendon Reflex & Clonus Assessment Deep Tendon Reflex Bilateral Achilles Deep Tendon Reflex 0 Absent Bilateral Patellar Deep Tendon Reflex 1+ Diminished PT-OP-J Posture/Palpation/Skin Start: 12/08/21 13:16 Freq: Status: Active Protocol: Document 12/10/21 16:00 AW (Rec: 12/10/21 16:51 AW [id number]) Posture Evaluation Comments Posture Comments Pt has rightward curvature of the spine at T/L junction. Left iliac crest is slightly higher than right. PT-OP-K Range of Motion Start: 12/08/21 13:16 Freq: Status: Active Protocol: Document 12/10/21 16:00 AW (Rec: 12/10/21 16:51 AW [id number]) Hip Goniometric Range of Motion Hip bilat Hip ROM WFL Yes Comments HS lacking 15-20 degrees bilaterally in passive SLR. Tightness noted at end range IR R hip. IR:ER ratio is generally ~1:2. Hip ROM Limitations Hip ROM Limitations Soft Tissue Tightness,Pain Knee Goniometric Range of Motion Knee bilat Knee ROM WFL Yes PT-OP-L Special Tests Start: 12/08/21 13:16 Freq: Status: Active Protocol: Document 12/10/21 16:00 AW (Rec: 12/10/21 16:51 AW [id number]) Special Tests Lumbar Spine Special Tests Straight Leg Raise Test Results Pt unable to lift RLE without using UE's. LLE SLR is WNL. PT-OP-M Strength Start: 12/08/21 13:16 Freq: Status: Active Protocol: Document 12/10/21 16:00 AW (Rec: 12/10/21 16:51 AW [id number]) Hip Strength Hip Manual Muscle Testing Left Flexion (L2) 4 Good Extension (S1) 4- Good- Abduction 4- Good- External Rotation 4+ Good+ Internal Rotation 4+ Good+ Right Flexion (L2) 3 Fair Extension (S1) 3+ Fair+ Abduction 3+ Fair+ External Rotation 4 Good Internal Rotation 4 Good Knee Strength Knee Manual Muscle Testing Left Flexion (S2) 4+ Good+ Extension (L3) 5 Normal Right Flexion (S2) 4- Good- Extension (L3) 4- Good- Ankle/Foot Strength Ankle and Foot Manual Muscle Testing Left Dorsiflexion (L4) 5 Normal Plantarflexion (S1) 4- Good- Right Dorsiflexion (L4) 4+ Good+ Plantarflexion (S1) 4- Good- PT-OP-Q Treatments Start: 12/08/21 13:16 Freq: Status: Active Protocol: Document 01/14/22 10:31 SP (Rec: 01/14/22 11:41 SP [id number]) Therapeutic Exercises Supine Exercises piriformis stretch Supine Exercise Name piriformis stretch- opp LE straight Side bilateral Resistance opp foot planted Reps/Minutes 30 SH x 4 Comments R anterior hip pinch with opp knee bent modify opp straight- good PF str R Sitting Exercises self STMs Sitting Exercise Name discussed during manual: quad, HS, adductor, ITB Side right Equipment Used added standing ball wall glut med/piriformis, ES R Comments good feedback Standing Exercises SLS Standing Exercise Name SLS- HEP reviewed Side bilateral Equipment Used near rail Reps/Minutes 1 rep each end tx: 41s RLE; 24s LLE Comments improvement in self corrections step up/down Standing Exercise Name step up: fwd, bkwd, lateral Side bilateral Resistance 1.4 step and rail Min support RLE + light lateral R HR for LLE gym Equipment Used 2. 4>8 step fwd/bk stepping, SPC in opp UE for support Min- light WB Reps/Minutes x10 Comments cued weight shift over stance leg, glute drive Gait Training Gait Activity uneven surface gait Description grass incline/decline,gravel, landscaping Device Used SPC, none Level of Assistance SBA- CGA PRN (uneven gravel/ landscaping), grass SBA Distance/Duration outside clinic Treatment Focus self balance recovery uneven outdoor surfaces Comments cued postural alignment, core and scapular complex with slow pacing descent smaller step, good stability over uneven surfaces. Manual Therapy Treatment Soft Tissue Mobilization R LE Body Location R QL, glut med, quad, TFL Mobilization Type Cross-Friction,Instrument Assisted,Strumming Intensity/Depth Moderate Body Position Hooklying Comments Pt states got her rolling pin at thrift store but forgets to use, suggested keep out on counter as reminder. Also use ball over glut at wall and self rolling posterior chain. PT-OP-T Assessment and Plan Start: 12/08/21 13:16 Freq: Status: Active Protocol: Document 01/14/22 10:31 SP (Rec: 01/14/22 11:41 SP [id number]) Physical Therapy Assessment Goals Three Impairment impaired dynamic balance Program Mgr Goal (LTG) Pt will improve DGI score from 13/24 to 19/24 or greater as a measure of improved balance and reduced falls risk. 01/09/22 - Pt scores 17/24 today. LTG Duration 03/05/22 Two Impairment RLE weakness Short Term Goal (STG) Pt will demonstrate single leg stance at least 10 seconds each leg without UE support and without excessive shear. STG Duration 01/21/22 [facility] Goal (LTG) Pt will demonstrate single leg stance at least 20 seconds each leg without UE support and without excessive shear. LTG Duration 03/05/22 One Impairment lacks HEP Short Term Goal (STG) Pt will be instructed in HEP for hip mobility and LE strength to support therapy services provided in clinic 12/16/21: added self STMs w/ rolling pin, chris stretch, hip abd on side, STS, supine stretches, BKFO. STG Duration 01/21/22 progressing 12/16/21 [facility] Goal (LTG) Susana will be independent with HEP for hip mobility, LE strength, and balance to manage her symptoms LTG Duration 03/05/22 Assessment Summary Assessment Pt improved descend up to 8 step/curb with SPC support needed in opp LE descending. She ableto navigate uneven surface with PRN support of SPC this tx, little unsteady sways but self recovery, provided CGA as precaution for safety, no LOB. Pt stated R hip felt better and good effort this tx. Physical Therapy Plan Frequency and Duration Frequency of Treatment 2x/Week Plan of Care Start Date 12/10/21 Plan of Care End Date 03/05/22 Therapeutic Interventions Therapeutic Interventions Aquatic Therapy,Balance Training,Gait Training,Home Exercise Program,Manual Therapy,Neuromuscular Re- education,Patient/Caregiver Education,Self-Care/Home Management,Soft Tissue Mobilization,Therapeutic Activities,Therapeutic Exercises Modalities Cold Pack/Ice Massage,Electric Stimulation,Hot Packs Next Visit Focus/Plan Next Note Type Treatment Note Next Visit Plan Progress sit to stands as able , add foam if able; continue to work on eccentric control with pause at varying heights. Revisit step ups. Hurdles. Add static balance for HEP. Work on dynamic balance and gait in/outside clinic.
--- NOTE | 2022-01-16 09:55 | PT.OTN ---
Current Diagnoses Difficulty in walking, not elsewhere classified (01/16/22) Repeated falls (01/16/22) Physical Therapy Treatment Note PT-OP-A Visit Information Start: 12/08/21 13:16 Freq: Status: Active Protocol: Document 01/16/22 08:59 AW (Rec: 01/16/22 09:47 AW [id number]) Out-Patient Physical Therapy Visit Information Visit Information Visit Type Treatment Note Visit Start Time 09:00 Visit Stop Time 09:40 Total Visit Minutes 40 Visit Number /19 to KX Number of POULTRY GRADER Visits 0 Evaluation Information Evaluation Date 12/10/21 PT-OP-B Current Condition Start: 12/08/21 13:16 Freq: Status: Active Protocol: Document 12/10/21 16:00 AW (Rec: 12/08/21 13:28 AW [id number]) Current Condition History of Current Condition Onset Date September 2021 Current Complaints R leg feels unsteady, gives out History of Current Condition Susana Lambert) lives at [facility] with her . 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 Susana started having R hip and low back pain in September which reached a peak early October. She was seen in the ED and had imaging as below. She started using a walker due to pain and a sense of instability. She upgraded to a walking stick eventually and is now walking without a device. She now has little to no pain but states her right leg gives out on her and feels wobbly. She has been having numbness along her right medial knee. She is falling ~once per week. Prior Treatments and Tests - R hip and lumbar spine x- rays at ED on 10/07/21. R hip image shows moderate OA. Lumbar spine image shows grade 1 anterolisthesis L4-L5 and L5-S1 and multilevel degenerative changes. 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 Treatment Goals Patient/Caregiver Goals Continue to walk without assistive device. Reduce falls frequency. Increase confidence in right leg. 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 Pt is very motivated to stay active. PT-OP-C Subjective Start: 12/08/21 13:16 Freq: Status: Active Protocol: Document 01/16/22 08:59 AW (Rec: 01/16/22 09:47 AW [id number]) OP-PT Subjective Patient Comments Patient Comments r hip low back? PT-OP-D Balance Start: 12/08/21 13:16 Freq: Status: Active Protocol: Document 12/10/21 16:00 AW (Rec: 12/10/21 16:31 AW [id number]) Balance Tests Single Limb Standing Single Limb- Right 3 sec unsteady with UE support and + Trendelenberg Single Limb- Left 5 sec unsteady with UE support and + Trendelenberg PT-OP-E Functional Tests Start: 12/08/21 13:16 Freq: Status: Active Protocol: Document 12/10/21 16:00 AW (Rec: 12/10/21 16:31 AW [id number]) Functional Tests Dynamic Gait Index (DGI) Score 13 DGI Impairment Rating 40 to <60% Impaired (Score 10- 14) PT-OP-F Manual Assessment Start: 12/08/21 13:16 Freq: Status: Active Protocol: Document 12/10/21 16:00 AW (Rec: 12/10/21 16:39 AW [id number]) Manual Assessments Joint Mobility Assessment Joint Mobility Assessment Slight crepitus bilateral knees. Scour test negative in both hips. Good PA excursion in all lumbar segments. PT-OP-G Mobility & Gait Start: 12/08/21 13:16 Freq: Status: Active Protocol: Document 12/10/21 16:00 AW (Rec: 12/10/21 16:39 AW [id number]) OP Gait Assessment Comments Gait Comments Pt ambulates without device. She vaults over the right LE and has decreased RLE stance time. Right foot is excessively pronated and pt has reduced heelstrike bilaterally. Right hip in slight ER. Stair Climbing Evaluation Comments Stair Climbing Comments Step-to pattern with B rails. Pt does not need to navigate stairs in home environment but notes being extra cautious with patterning on curbs. PT-OP-H Neuro Start: 12/08/21 13:16 Freq: Status: Active Protocol: Document 12/10/21 16:00 AW (Rec: 12/10/21 16:39 AW [id number]) Sensation Evaluation Gross Sensation Gross Sensation Right LE Impaired Sensation Description Numbness Dermatome Impairments L4 Comments Summary Comments Numbness along right medial knee. Deep Tendon Reflex & Clonus Assessment Deep Tendon Reflex Bilateral Achilles Deep Tendon Reflex 0 Absent Bilateral Patellar Deep Tendon Reflex 1+ Diminished PT-OP-J Posture/Palpation/Skin Start: 12/08/21 13:16 Freq: Status: Active Protocol: Document 12/10/21 16:00 AW (Rec: 12/10/21 16:51 AW [id number]) Posture Evaluation Comments Posture Comments Pt has rightward curvature of the spine at T/L junction. Left iliac crest is slightly higher than right. PT-OP-K Range of Motion Start: 12/08/21 13:16 Freq: Status: Active Protocol: Document 12/10/21 16:00 AW (Rec: 12/10/21 16:51 AW [id number]) Hip Goniometric Range of Motion Hip bilat Hip ROM WFL Yes Comments HS lacking 15-20 degrees bilaterally in passive SLR. Tightness noted at end range IR R hip. IR:ER ratio is generally ~1:2. Hip ROM Limitations Hip ROM Limitations Soft Tissue Tightness,Pain Knee Goniometric Range of Motion Knee bilat Knee ROM WFL Yes PT-OP-L Special Tests Start: 12/08/21 13:16 Freq: Status: Active Protocol: Document 12/10/21 16:00 AW (Rec: 12/10/21 16:51 AW [id number]) Special Tests Lumbar Spine Special Tests Straight Leg Raise Test Results Pt unable to lift RLE without using UE's. LLE SLR is WNL. PT-OP-M Strength Start: 12/08/21 13:16 Freq: Status: Active Protocol: Document 12/10/21 16:00 AW (Rec: 12/10/21 16:51 AW [id number]) Hip Strength Hip Manual Muscle Testing Left Flexion (L2) 4 Good Extension (S1) 4- Good- Abduction 4- Good- External Rotation 4+ Good+ Internal Rotation 4+ Good+ Right Flexion (L2) 3 Fair Extension (S1) 3+ Fair+ Abduction 3+ Fair+ External Rotation 4 Good Internal Rotation 4 Good Knee Strength Knee Manual Muscle Testing Left Flexion (S2) 4+ Good+ Extension (L3) 5 Normal Right Flexion (S2) 4- Good- Extension (L3) 4- Good- Ankle/Foot Strength Ankle and Foot Manual Muscle Testing Left Dorsiflexion (L4) 5 Normal Plantarflexion (S1) 4- Good- Right Dorsiflexion (L4) 4+ Good+ Plantarflexion (S1) 4- Good- PT-OP-Q Treatments Start: 12/08/21 13:16 Freq: Status: Active Protocol: Document 01/16/22 08:59 AW (Rec: 01/16/22 09:47 AW [id number]) Therapeutic Exercises Standing Exercises SLS Standing Exercise Name SLS- HEP reviewed Side bilateral Equipment Used near rail Reps/Minutes 20+ sec reps; RLE more stable Comments improvement in self corrections Other Exercises sit to stand Other Exercise Name sit to stand - arms across chest Resistance 1-breath pause at 1/2 depth on descent Equipment Used TB2 at knees for biofeedback hip rotation Reps/Minutes 2x10 w/glute squeeze at top Comments std ht chair Gait Training Gait Activity dynamic gait Description dynamic gait Device Used none Level of Assistance SBA Surface tile Comments Horizontal and vertical head turns. Better with vertical. More path deviation with horizontal and pt reports unsteady. hurdles Description hurdles Level of Assistance SBA/CGA Surface firm and foam Treatment Focus SL stability Comments used foam between random hurdles. No device. Neuro Re-Education Treatment Balance Activities tandem stance Details tandem stance Surface firm Equipment // prn Comments Easier with left fwd. Progressed to tandem walking with // fingertip support. Added tandem stance at counter for HEP. foam Surface blue foam Comments 1. WBOS 2. NBOS 3. NBOS verti and horiz head turns 4. WBOS EC PT-OP-T Assessment and Plan Start: 12/08/21 13:16 Freq: Status: Active Protocol: Document 01/16/22 08:59 AW (Rec: 01/16/22 09:47 AW [id number]) Physical Therapy Assessment Goals Three Impairment impaired dynamic balance Detention Goal (LTG) Pt will improve DGI score from 13 to 19/24 or greater as a measure of improved balance and reduced falls risk. 01/09/22 - Pt scores 17/24 today. LTG Duration 03/05/22 Two Impairment RLE weakness Short Term Goal (STG) Pt will demonstrate single leg stance at least 10 seconds each leg without UE support and without excessive shear. STG Duration 01/21/22 Detention Goal (LTG) Pt will demonstrate single leg stance at least 20 seconds each leg without UE support and without excessive shear. LTG Duration 03/05/22 One Impairment lacks HEP Short Term Goal (STG) Pt will be instructed in HEP for hip mobility and LE strength to support therapy services provided in clinic 12/16/21: added self STMs w/ rolling pin, chris stretch, hip abd on side, STS, supine stretches, BKFO. STG Duration 01/21/22 progressing 12/16/21 Detention Goal (LTG) Susana will be independent with HEP for hip mobility, LE strength, and balance to manage her symptoms LTG Duration 03/05/22 Assessment Summary Assessment Susana does well with balance challenges today. Left knee pain is most limiting in standing activities. Dynamic gait is most challenged with horizontal head turns. Physical Therapy Plan Frequency and Duration Frequency of Treatment 2x/Week Plan of Care Start Date 12/10/21 Plan of Care End Date 03/05/22 Therapeutic Interventions Therapeutic Interventions Aquatic Therapy,Balance Training,Gait Training,Home Exercise Program,Manual Therapy,Neuromuscular Re- education,Patient/Caregiver Education,Self-Care/Home Management,Soft Tissue Mobilization,Therapeutic Activities,Therapeutic Exercises Modalities Cold Pack/Ice Massage,Electric Stimulation,Hot Packs Next Visit Focus/Plan Next Note Type Treatment Note
--- NOTE | 2022-01-22 12:29 | PT.OTN ---
Current Diagnoses Difficulty in walking, not elsewhere classified (01/22/22) Repeated falls (01/22/22) Physical Therapy Treatment Note PT-OP-A Visit Information Start: 12/08/21 13:16 Freq: Status: Active Protocol: Document 01/22/22 09:01 AW (Rec: 01/22/22 12:29 AW [id number]) Out-Patient Physical Therapy Visit Information Visit Information Visit Type Treatment Note Visit Start Time 10:30 Visit Stop Time 11:15 Total Visit Minutes 45 Visit Number 03/24 to KX Evaluation Information Evaluation Date 12/10/21 PT-OP-B Current Condition Start: 12/08/21 13:16 Freq: Status: Active Protocol: Document 12/10/21 16:00 AW (Rec: 12/08/21 13:28 AW [id number]) Current Condition History of Current Condition Onset Date September 2021 Current Complaints R leg feels unsteady, gives out History of Current Condition Susana Lambert) lives at [facility] with her . 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 Susana started having R hip and low back pain in September which reached a peak early October. She was seen in the ED and had imaging as below. She started using a walker due to pain and a sense of instability. She upgraded to a walking stick eventually and is now walking without a device. She now has little to no pain but states her right leg gives out on her and feels wobbly. She has been having numbness along her right medial knee. She is falling ~once per week. Prior Treatments and Tests - R hip and lumbar spine x- rays at ED on 10/07/21. R hip image shows moderate OA. Lumbar spine image shows grade 1 anterolisthesis L4-L5 and L5-S1 and multilevel degenerative changes. - care giver since October . 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 Treatment Goals Patient/Caregiver Goals Continue to walk without assistive device. Reduce falls frequency. Increase confidence in right leg. 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 Pt is very motivated to stay active. PT-OP-C Subjective Start: 12/08/21 13:16 Freq: Status: Active Protocol: Document 01/22/22 09:01 AW (Rec: 01/22/22 12:29 AW [id number]) OP-PT Subjective Patient Comments Patient Comments Susana ramos was able to ascend stairs with heavy rail support but step over step. PT-OP-D Balance Start: 12/08/21 13:16 Freq: Status: Active Protocol: Document 12/10/21 16:00 AW (Rec: 12/10/21 16:31 AW [id number]) Balance Tests Single Limb Standing Single Limb- Right 3 sec unsteady with UE support and + Trendelenberg Single Limb- Left 5 sec unsteady with UE support and + Trendelenberg PT-OP-E Functional Tests Start: 12/08/21 13:16 Freq: Status: Active Protocol: Document 12/10/21 16:00 AW (Rec: 12/10/21 16:31 AW [id number]) Functional Tests Dynamic Gait Index (DGI) Score 13 DGI Impairment Rating 40 to <60% Impaired (Score 10- 14) PT-OP-F Manual Assessment Start: 12/08/21 13:16 Freq: Status: Active Protocol: Document 12/10/21 16:00 AW (Rec: 12/10/21 16:39 AW [id number]) Manual Assessments Joint Mobility Assessment Joint Mobility Assessment Slight crepitus bilateral knees. Scour test negative in both hips. Good PA excursion in all lumbar segments. PT-OP-G Mobility & Gait Start: 12/08/21 13:16 Freq: Status: Active Protocol: Document 12/10/21 16:00 AW (Rec: 12/10/21 16:39 AW [id number]) OP Gait Assessment Comments Gait Comments Pt ambulates without device. She vaults over the right LE and has decreased RLE stance time. Right foot is excessively pronated and pt has reduced heelstrike bilaterally. Right hip in slight ER. Stair Climbing Evaluation Comments Stair Climbing Comments Step-to pattern with B rails. Pt does not need to navigate stairs in home environment but notes being extra cautious with patterning on curbs. PT-OP-H Neuro Start: 12/08/21 13:16 Freq: Status: Active Protocol: Document 12/10/21 16:00 AW (Rec: 12/10/21 16:39 AW [id number]) Sensation Evaluation Gross Sensation Gross Sensation Right LE Impaired Sensation Description Numbness Dermatome Impairments L4 Comments Summary Comments Numbness along right medial knee. Deep Tendon Reflex & Clonus Assessment Deep Tendon Reflex Bilateral Achilles Deep Tendon Reflex 0 Absent Bilateral Patellar Deep Tendon Reflex 1+ Diminished PT-OP-J Posture/Palpation/Skin Start: 12/08/21 13:16 Freq: Status: Active Protocol: Document 12/10/21 16:00 AW (Rec: 12/10/21 16:51 AW [id number]) Posture Evaluation Comments Posture Comments Pt has rightward curvature of the spine at T/L junction. Left iliac crest is slightly higher than right. PT-OP-K Range of Motion Start: 12/08/21 13:16 Freq: Status: Active Protocol: Document 12/10/21 16:00 AW (Rec: 12/10/21 16:51 AW [id number]) Hip Goniometric Range of Motion Hip bilat Hip ROM WFL Yes Comments HS lacking 15-20 degrees bilaterally in passive SLR. Tightness noted at end range IR R hip. IR:ER ratio is generally ~1:2. Hip ROM Limitations Hip ROM Limitations Soft Tissue Tightness,Pain Knee Goniometric Range of Motion Knee bilat Knee ROM WFL Yes PT-OP-L Special Tests Start: 12/08/21 13:16 Freq: Status: Active Protocol: Document 12/10/21 16:00 AW (Rec: 12/10/21 16:51 AW [id number]) Special Tests Lumbar Spine Special Tests Straight Leg Raise Test Results Pt unable to lift RLE without using UE's. LLE SLR is WNL. PT-OP-M Strength Start: 12/08/21 13:16 Freq: Status: Active Protocol: Document 12/10/21 16:00 AW (Rec: 12/10/21 16:51 AW [id number]) Hip Strength Hip Manual Muscle Testing Left Flexion (L2) 4 Good Extension (S1) 4- Good- Abduction 4- Good- External Rotation 4+ Good+ Internal Rotation 4+ Good+ Right Flexion (L2) 3 Fair Extension (S1) 3+ Fair+ Abduction 3+ Fair+ External Rotation 4 Good Internal Rotation 4 Good Knee Strength Knee Manual Muscle Testing Left Flexion (S2) 4+ Good+ Extension (L3) 5 Normal Right Flexion (S2) 4- Good- Extension (L3) 4- Good- Ankle/Foot Strength Ankle and Foot Manual Muscle Testing Left Dorsiflexion (L4) 5 Normal Plantarflexion (S1) 4- Good- Right Dorsiflexion (L4) 4+ Good+ Plantarflexion (S1) 4- Good- PT-OP-Q Treatments Start: 12/08/21 13:16 Freq: Status: Active Protocol: Document 01/22/22 09:01 AW (Rec: 01/22/22 12:29 AW [id number]) Gym Equipment Shuttle Balance 1 Details red Reps/Duration 10 Comments NBOS EO with vertical and horizontal head turns Therapeutic Exercises Standing Exercises step up/down Standing Exercise Name step up: fwd, lateral Side bilateral Resistance 6 step Equipment Used light UE support on // Reps/Minutes x10 Comments cued weight shift over stance leg, glute drive Other Exercises sit to stand Other Exercise Name sit to stand Resistance 5# db held at chest height Equipment Used TB2 at knees for biofeedback hip rotation Reps/Minutes 2x10 w/glute squeeze at top Comments std ht chair Neuro Re-Education Treatment Balance Activities corner balance Details corner balance Surface firm Equipment wall behind, chair in front Comments -NBOS EO and EC -NBOS head turn and nod EO -NBOS head turn and nod EC tandem stance Details tandem stance Surface firm Equipment // prn Comments Progressed to tandem walking with // fingertip support. Added tandem stance at counter for HEP. Self-Care/Home Management Treatment Education Patient Education Home Exercise Program Other Education corner balance added for HEP PT-OP-T Assessment and Plan Start: 12/08/21 13:16 Freq: Status: Active Protocol: Document 01/22/22 09:01 AW (Rec: 01/22/22 12:29 AW [id number]) Physical Therapy Assessment Goals Three Impairment impaired dynamic balance Shellfish Dredge Operator Goal (LTG) Pt will improve DGI score from 1324 to 19/24 or greater as a measure of improved balance and reduced falls risk. 01/09/22 - Pt scores 17/24 today. LTG Duration 03/05/22 Two Impairment RLE weakness Short Term Goal (STG) Pt will demonstrate single leg stance at least 10 seconds each leg without UE support and without excessive shear. STG Duration 01/21/22 Mcfp Goal (LTG) Pt will demonstrate single leg stance at least 20 seconds each leg without UE support and without excessive shear. LTG Duration 03/05/22 One Impairment lacks HEP Short Term Goal (STG) Pt will be instructed in HEP for hip mobility and LE strength to support therapy services provided in clinic 12/16/21: added self STMs w/ rolling pin, chris stretch, hip abd on side, STS, supine stretches, BKFO. STG Duration 01/21/22 progressing 12/16/21 Shellfish Dredge Operator Goal (LTG) Susana will be independent with HEP for hip mobility, LE strength, and balance to manage her symptoms LTG Duration 03/05/22 Assessment Summary Assessment Susana struggled with NBOS on balance board today but did well with all other balance challenges. Plan to continue once weekly appointments to work on balance and to progress load in strengthening work for improved strength. Physical Therapy Plan Frequency and Duration Frequency of Treatment 2x/Week Plan of Care Start Date 12/10/21 Plan of Care End Date 01/22/22 Therapeutic Interventions Therapeutic Interventions Aquatic Therapy,Balance Training,Gait Training,Home Exercise Program,Manual Therapy,Neuromuscular Re- education,Patient/Caregiver Education,Self-Care/Home Management,Soft Tissue Mobilization,Therapeutic Activities,Therapeutic Exercises Modalities Cold Pack/Ice Massage,Electric Stimulation,Hot Packs Next Visit Focus/Plan Next Note Type Treatment Note Next Visit Plan Progress sit to stands as able with increased resistance; continue to work on eccentric control with pause at varying heights. Revisit step ups. Hurdles. Review static balance for HEP. Work on dynamic balance and gait in/outside clinic.
--- NOTE | 2022-01-28 10:33 | PT.OTN ---
Current Diagnoses Difficulty in walking, not elsewhere classified (01/28/22) Repeated falls (01/28/22) Physical Therapy Treatment Note PT-OP-A Visit Information Start: 12/08/21 13:16 Freq: Status: Active Protocol: Document 01/28/22 09:47 NBM (Rec: 01/28/22 10:32 NBM [id number]) Out-Patient Physical Therapy Visit Information Visit Information Visit Type Treatment Note Visit Start Time 09:48 Visit Stop Time 10:28 Total Visit Minutes 40 Visit Number 03/24 to KX PT-OP-B Current Condition Start: 12/08/21 13:16 Freq: Status: Active Protocol: Document 12/10/21 16:00 AW (Rec: 12/08/21 13:28 AW [id number]) Current Condition History of Current Condition Onset Date September 2021 Current Complaints R leg feels unsteady, gives out History of Current Condition Susana Lambert) lives at [facility] with her . 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 Susana started having R hip and low back pain in September which reached a peak early October. She was seen in the ED and had imaging as below. She started using a walker due to pain and a sense of instability. She upgraded to a walking stick eventually and is now walking without a device. She now has little to no pain but states her right leg gives out on her and feels wobbly. She has been having numbness along her right medial knee. She is falling ~once per week. Prior Treatments and Tests - R hip and lumbar spine x- rays at ED on 10/07/21. R hip image shows moderate OA. Lumbar spine image shows grade 1 anterolisthesis L4-L5 and L5-S1 and multilevel degenerative changes. - care attendant since October . 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 Treatment Goals Patient/Caregiver Goals Continue to walk without assistive device. Reduce falls frequency. Increase confidence in right leg. 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 Pt is very motivated to stay active. PT-OP-C Subjective Start: 12/08/21 13:16 Freq: Status: Active Protocol: Document 01/28/22 09:47 NBM (Rec: 01/28/22 10:32 [facility] [id number]) OP-PT Subjective Patient Comments Patient Comments Pt states today isn't going so well because her low back is hurting today. She is not sure why. She has been doing a lot of driving lately and lifts 's wheelchair into the car. 's sister passed this week and she forgot about the corner balance exercises. PT-OP-D Balance Start: 12/08/21 13:16 Freq: Status: Active Protocol: Document 12/10/21 16:00 AW (Rec: 12/10/21 16:31 AW [id number]) Balance Tests Single Limb Standing Single Limb- Right 3 sec unsteady with UE support and + Trendelenberg Single Limb- Left 5 sec unsteady with UE support and + Trendelenberg PT-OP-E Functional Tests Start: 12/08/21 13:16 Freq: Status: Active Protocol: Document 12/10/21 16:00 AW (Rec: 12/10/21 16:31 AW [id number]) Functional Tests Dynamic Gait Index (DGI) Score 13 DGI Impairment Rating 40 to <60% Impaired (Score 10- 14) PT-OP-F Manual Assessment Start: 12/08/21 13:16 Freq: Status: Active Protocol: Document 12/10/21 16:00 AW (Rec: 12/10/21 16:39 AW [id number]) Manual Assessments Joint Mobility Assessment Joint Mobility Assessment Slight crepitus bilateral knees. Scour test negative in both hips. Good PA excursion in all lumbar segments. PT-OP-G Mobility & Gait Start: 12/08/21 13:16 Freq: Status: Active Protocol: Document 12/10/21 16:00 AW (Rec: 12/10/21 16:39 AW [id number]) OP Gait Assessment Comments Gait Comments Pt ambulates without device. She vaults over the right LE and has decreased RLE stance time. Right foot is excessively pronated and pt has reduced heelstrike bilaterally. Right hip in slight ER. Stair Climbing Evaluation Comments Stair Climbing Comments Step-to pattern with B rails. Pt does not need to navigate stairs in home environment but notes being extra cautious with patterning on curbs. PT-OP-H Neuro Start: 12/08/21 13:16 Freq: Status: Active Protocol: Document 12/10/21 16:00 AW (Rec: 12/10/21 16:39 AW [id number]) Sensation Evaluation Gross Sensation Gross Sensation Right LE Impaired Sensation Description Numbness Dermatome Impairments L4 Comments Summary Comments Numbness along right medial knee. Deep Tendon Reflex & Clonus Assessment Deep Tendon Reflex Bilateral Achilles Deep Tendon Reflex 0 Absent Bilateral Patellar Deep Tendon Reflex 1+ Diminished PT-OP-J Posture/Palpation/Skin Start: 12/08/21 13:16 Freq: Status: Active Protocol: Document 12/10/21 16:00 AW (Rec: 12/10/21 16:51 AW [id number]) Posture Evaluation Comments Posture Comments Pt has rightward curvature of the spine at T/L junction. Left iliac crest is slightly higher than right. PT-OP-K Range of Motion Start: 12/08/21 13:16 Freq: Status: Active Protocol: Document 12/10/21 16:00 AW (Rec: 12/10/21 16:51 AW [id number]) Hip Goniometric Range of Motion Hip bilat Hip ROM WFL Yes Comments HS lacking 15-20 degrees bilaterally in passive SLR. Tightness noted at end range IR R hip. IR:ER ratio is generally ~1:2. Hip ROM Limitations Hip ROM Limitations Soft Tissue Tightness,Pain Knee Goniometric Range of Motion Knee bilat Knee ROM WFL Yes PT-OP-L Special Tests Start: 12/08/21 13:16 Freq: Status: Active Protocol: Document 12/10/21 16:00 AW (Rec: 12/10/21 16:51 AW [id number]) Special Tests Lumbar Spine Special Tests Straight Leg Raise Test Results Pt unable to lift RLE without using UE's. LLE SLR is WNL. PT-OP-M Strength Start: 12/08/21 13:16 Freq: Status: Active Protocol: Document 12/10/21 16:00 AW (Rec: 12/10/21 16:51 AW [id number]) Hip Strength Hip Manual Muscle Testing Left Flexion (L2) 4 Good Extension (S1) 4- Good- Abduction 4- Good- External Rotation 4+ Good+ Internal Rotation 4+ Good+ Right Flexion (L2) 3 Fair Extension (S1) 3+ Fair+ Abduction 3+ Fair+ External Rotation 4 Good Internal Rotation 4 Good Knee Strength Knee Manual Muscle Testing Left Flexion (S2) 4+ Good+ Extension (L3) 5 Normal Right Flexion (S2) 4- Good- Extension (L3) 4- Good- Ankle/Foot Strength Ankle and Foot Manual Muscle Testing Left Dorsiflexion (L4) 5 Normal Plantarflexion (S1) 4- Good- Right Dorsiflexion (L4) 4+ Good+ Plantarflexion (S1) 4- Good- PT-OP-Q Treatments Start: 12/08/21 13:16 Freq: Status: Active Protocol: Document 01/28/22 09:47 NBM (Rec: 01/28/22 10:32 [facility] [id number]) Neuro Re-Education Treatment Balance Activities corner balance Details corner balance - HEP Surface firm Equipment wall behind, chair in front Comments -NBOS EO and EC -NBOS head turn and nod EO -NBOS head turn and nod EC Self-Care/Home Management Treatment Education Patient Education Body Mechanics,Home Exercise Program,Pain Management,Safety Other Education corner balance for HEP - HO issued Activities Self-Care/Home Management Activities Educated and practiced lifting mechanics w/ pivoting. self-STM w/ tennis ball at wall; Corner balance; Lifting/ pivoting mechanics - HO given. PT-OP-T Assessment and Plan Start: 12/08/21 13:16 Freq: Status: Active Protocol: Document 01/28/22 09:47 NBM (Rec: 01/28/22 10:32 [facility] [id number]) Physical Therapy Assessment Goals Three Impairment impaired dynamic balance [facility] Goal (LTG) Pt will improve DGI score from 13/24 to 19/24 or greater as a measure of improved balance and reduced falls risk. 01/09/22 - Pt scores 17/24 today. LTG Duration 03/05/22 Two Impairment RLE weakness Short Term Goal (STG) Pt will demonstrate single leg stance at least 10 seconds each leg without UE support and without excessive shear. STG Duration 01/21/22 [facility] Goal (LTG) Pt will demonstrate single leg stance at least 20 seconds each leg without UE support and without excessive shear. LTG Duration 03/05/22 One Impairment lacks HEP Short Term Goal (STG) Pt will be instructed in HEP for hip mobility and LE strength to support therapy services provided in clinic 12/16/21: added self STMs w/ rolling pin, chris stretch, hip abd on side, STS, supine stretches, BKFO. STG Duration 01/21/22 progressing 12/16/21 Buttermilk Drier Operator Goal (LTG) Susana will be independent with HEP for hip mobility, LE strength, and balance to manage her symptoms LTG Duration 03/05/22 Assessment Summary Assessment Pt presents today w/ low back pain L side and demonstrates poor lifting mechanics - cued to bend knees, pivot from feet not twisting waist - pt demonstrates improved body mechanics. Pt has good relief w/ self-STM w/ tennis ball at wall and plans to purchase one today. Pt is challenged w/ corner balance head turns> head nods, EC w/ head turns the most, and with tandem balance L foot back more than R. self-STM w/ tennis ball at wall; Corner balance; Lifting/ pivoting mechanics - HO given. Physical Therapy Plan Frequency and Duration Frequency of Treatment 2x/Week Plan of Care Start Date 12/10/21 Plan of Care End Date 03/05/22 Therapeutic Interventions Therapeutic Interventions Aquatic Therapy,Balance Training,Gait Training,Home Exercise Program,Manual Therapy,Neuromuscular Re- education,Patient/Caregiver Education,Self-Care/Home Management,Soft Tissue Mobilization,Therapeutic Activities,Therapeutic Exercises Modalities Cold Pack/Ice Massage,Electric Stimulation,Hot Packs Next Visit Focus/Plan Next Note Type Treatment Note Next Visit Plan Progress sit to stands as able with increased resistance; continue to work on eccentric control with pause at varying heights. Revisit step ups. Hurdles. Review static balance for HEP. Work on dynamic balance and gait in/outside clinic.
--- NOTE | 2022-02-04 13:49 | PT.OTN ---
Current Diagnoses Difficulty in walking, not elsewhere classified (02/04/22) Repeated falls (02/04/22) Physical Therapy Treatment Note PT-OP-A Visit Information Start: 12/08/21 13:16 Freq: Status: Active Protocol: Document 02/04/22 13:02 NBM (Rec: 02/04/22 13:48 NBM [id number]) Out-Patient Physical Therapy Visit Information Visit Information Visit Type Treatment Note Visit Start Time 13:00 Visit Stop Time 13:45 Total Visit Minutes 45 Visit Number to KX PT-OP-B Current Condition Start: 12/08/21 13:16 Freq: Status: Active Protocol: Document 12/10/21 16:00 AW (Rec: 12/08/21 13:28 AW [id number]) Current Condition History of Current Condition Onset Date September 2021 Current Complaints R leg feels unsteady, gives out History of Current Condition Susana Lambert) lives at [facility] with her . 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 Susana started having R hip and low back pain in September which reached a peak early October. She was seen in the ED and had imaging as below. She started using a walker due to pain and a sense of instability. She upgraded to a walking stick eventually and is now walking without a device. She now has little to no pain but states her right leg gives out on her and feels wobbly. She has been having numbness along her right medial knee. She is falling ~once per week. Prior Treatments and Tests - R hip and lumbar spine x- rays at ED on 10/07/21. R hip image shows moderate OA. Lumbar spine image shows grade 1 anterolisthesis L4-L5 and L5-S1 and multilevel degenerative changes. 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 Treatment Goals Patient/Caregiver Goals Continue to walk without assistive device. Reduce falls frequency. Increase confidence in right leg. 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 Pt is very motivated to stay active. PT-OP-C Subjective Start: 12/08/21 13:16 Freq: Status: Active Protocol: Document 02/04/22 13:02 NBM (Rec: 02/04/22 13:48 [facility] [id number]) OP-PT Subjective Patient Comments Patient Comments Pt is feeling really good today. Someone described her as waddling so she wants to work on gait. She had a rough week so didn't do exercises. PT-OP-D Balance Start: 12/08/21 13:16 Freq: Status: Active Protocol: Document 12/10/21 16:00 AW (Rec: 12/10/21 16:31 AW [id number]) Balance Tests Single Limb Standing Single Limb- Right 3 sec unsteady with UE support and + Trendelenberg Single Limb- Left 5 sec unsteady with UE support and + Trendelenberg PT-OP-E Functional Tests Start: 12/08/21 13:16 Freq: Status: Active Protocol: Document 12/10/21 16:00 AW (Rec: 12/10/21 16:31 AW [id number]) Functional Tests Dynamic Gait Index (DGI) Score 13 DGI Impairment Rating 40 to <60% Impaired (Score 10- 14) PT-OP-F Manual Assessment Start: 12/08/21 13:16 Freq: Status: Active Protocol: Document 12/10/21 16:00 AW (Rec: 12/10/21 16:39 AW [id number]) Manual Assessments Joint Mobility Assessment Joint Mobility Assessment Slight crepitus bilateral knees. Scour test negative in both hips. Good PA excursion in all lumbar segments. PT-OP-G Mobility & Gait Start: 12/08/21 13:16 Freq: Status: Active Protocol: Document 12/10/21 16:00 AW (Rec: 12/10/21 16:39 AW [id number]) OP Gait Assessment Comments Gait Comments Pt ambulates without device. She vaults over the right LE and has decreased RLE stance time. Right foot is excessively pronated and pt has reduced heelstrike bilaterally. Right hip in slight ER. Stair Climbing Evaluation Comments Stair Climbing Comments Step-to pattern with B rails. Pt does not need to navigate stairs in home environment but notes being extra cautious with patterning on curbs. PT-OP-H Neuro Start: 12/08/21 13:16 Freq: Status: Active Protocol: Document 12/10/21 16:00 AW (Rec: 12/10/21 16:39 AW [id number]) Sensation Evaluation Gross Sensation Gross Sensation Right LE Impaired Sensation Description Numbness Dermatome Impairments L4 Comments Summary Comments Numbness along right medial knee. Deep Tendon Reflex & Clonus Assessment Deep Tendon Reflex Bilateral Achilles Deep Tendon Reflex 0 Absent Bilateral Patellar Deep Tendon Reflex 1+ Diminished PT-OP-J Posture/Palpation/Skin Start: 12/08/21 13:16 Freq: Status: Active Protocol: Document 12/10/21 16:00 AW (Rec: 12/10/21 16:51 AW [id number]) Posture Evaluation Comments Posture Comments Pt has rightward curvature of the spine at T/L junction. Left iliac crest is slightly higher than right. PT-OP-K Range of Motion Start: 12/08/21 13:16 Freq: Status: Active Protocol: Document 12/10/21 16:00 AW (Rec: 12/10/21 16:51 AW [id number]) Hip Goniometric Range of Motion Hip bilat Hip ROM WFL Yes Comments HS lacking 15-20 degrees bilaterally in passive SLR. Tightness noted at end range IR R hip. IR:ER ratio is generally ~1:2. Hip ROM Limitations Hip ROM Limitations Soft Tissue Tightness,Pain Knee Goniometric Range of Motion Knee bilat Knee ROM WFL Yes PT-OP-L Special Tests Start: 12/08/21 13:16 Freq: Status: Active Protocol: Document 12/10/21 16:00 AW (Rec: 12/10/21 16:51 AW [id number]) Special Tests Lumbar Spine Special Tests Straight Leg Raise Test Results Pt unable to lift RLE without using UE's. LLE SLR is WNL. PT-OP-M Strength Start: 12/08/21 13:16 Freq: Status: Active Protocol: Document 12/10/21 16:00 AW (Rec: 12/10/21 16:51 AW [id number]) Hip Strength Hip Manual Muscle Testing Left Flexion (L2) 4 Good Extension (S1) 4- Good- Abduction 4- Good- External Rotation 4+ Good+ Internal Rotation 4+ Good+ Right Flexion (L2) 3 Fair Extension (S1) 3+ Fair+ Abduction 3+ Fair+ External Rotation 4 Good Internal Rotation 4 Good Knee Strength Knee Manual Muscle Testing Left Flexion (S2) 4+ Good+ Extension (L3) 5 Normal Right Flexion (S2) 4- Good- Extension (L3) 4- Good- Ankle/Foot Strength Ankle and Foot Manual Muscle Testing Left Dorsiflexion (L4) 5 Normal Plantarflexion (S1) 4- Good- Right Dorsiflexion (L4) 4+ Good+ Plantarflexion (S1) 4- Good- PT-OP-Q Treatments Start: 12/08/21 13:16 Freq: Status: Active Protocol: Document 02/04/22 13:02 [facility] (Rec: 02/04/22 13:48 [facility] [id number]) Therapeutic Exercises Sitting Exercises 4-way ankle Sitting Exercise Name PF/DF, IV/EV - added to HEP Side bilateral Resistance Lvl 3 Tb Reps/Minutes x10 ea Comments cues for lifting from pinky toe w/ DF, no knee movement clamshells Sitting Exercise Name HEP review Resistance Lvl 3 Tb Reps/Minutes 15 Standing Exercises Heel raises Equipment Used // bars Reps/Minutes x10 Comments cues for up/down motion, good control Neuro Re-Education Treatment Balance Activities hurdles Details 5 6 hurdles Surface firm Equipment // bars Reps/Duration x4 Comments R ER and L IR to clear hurdles - improves w/ cueing Self-Care/Home Management Treatment Education Patient Education Home Exercise Program Other Education added to HEP: 4-way ankle and standing marching - HO issued PT-OP-T Assessment and Plan Start: 12/08/21 13:16 Freq: Status: Active Protocol: Document 02/04/22 13:02 [facility] (Rec: 02/04/22 13:48 [facility] [id number]) Physical Therapy Assessment Goals Three Impairment impaired dynamic balance Nursing Home Goal (LTG) Pt will improve DGI score from 13/24 to 19/24 or greater as a measure of improved balance and reduced falls risk. 01/09/22 - Pt scores 17/24 today. LTG Duration 03/05/22 Two Impairment RLE weakness Short Term Goal (STG) Pt will demonstrate single leg stance at least 10 seconds each leg without UE support and without excessive shear. STG Duration 01/21/22 Nursing Home Goal (LTG) Pt will demonstrate single leg stance at least 20 seconds each leg without UE support and without excessive shear. LTG Duration 03/05/22 One Impairment lacks HEP Short Term Goal (STG) Pt will be instructed in [facility] for hip mobility and LE strength to support therapy services provided in clinic 12/16/21: added self STMs w/ rolling pin, chris stretch, hip abd on side, STS, supine stretches, BKFO. STG Duration 01/21/22 progressing 12/16/21 Nursing Home Goal (LTG) Susana will be independent with HEP for hip mobility, LE strength, and balance to manage her symptoms LTG Duration 03/05/22 Assessment Summary Assessment Treatment focus today on hip and ankle strengthening for improved balance and gait. Pt requires cues for L IR and R ER w/ hurdles and marching - improves with cues and visual feedback. Pt incorporates cues for controlled eccentric motion well with all exercises . added to HEP: 4-way ankle and standing marching - HO issued. Physical Therapy Plan Frequency and Duration Frequency of Treatment 2x/Week Plan of Care Start Date 12/10/21 Plan of Care End Date 03/05/22 Therapeutic Interventions Therapeutic Interventions Aquatic Therapy,Balance Training,Gait Training,Home Exercise Program,Manual Therapy,Neuromuscular Re- education,Patient/Caregiver Education,Self-Care/Home Management,Soft Tissue Mobilization,Therapeutic Activities,Therapeutic Exercises Modalities Cold Pack/Ice Massage,Electric Stimulation,Hot Packs Next Visit Focus/Plan Next Note Type Treatment Note Next Visit Plan Gait inside/outside. Progress sit to stands as able with increased resistance; continue to work on eccentric control with pause at varying heights. Revisit step ups. Hurdles. Review static balance for HEP. Work on dynamic balance and gait in/outside clinic.
--- NOTE | 2022-02-18 20:56 | PT.OTN ---
Current Diagnoses Difficulty in walking, not elsewhere classified (02/18/22) Repeated falls (02/18/22) Physical Therapy Treatment Note PT-OP-A Visit Information Start: 12/08/21 13:16 Freq: Status: Active Protocol: Document 02/18/22 09:55 NBM (Rec: 02/18/22 10:34 NBM [id number]) Out-Patient Physical Therapy Visit Information Visit Information Visit Type Treatment Note Visit Start Time 09:51 Visit Stop Time 10:31 Total Visit Minutes 40 Visit Number 13 to KX PT-OP-B Current Condition Start: 12/08/21 13:16 Freq: Status: Active Protocol: Document 12/10/21 16:00 AW (Rec: 12/08/21 13:28 AW [id number]) Current Condition History of Current Condition Onset Date September 2021 Current Complaints R leg feels unsteady, gives out History of Current Condition Susana Lambert) lives at [facility] with her . 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 Susana started having R hip and low back pain in September which reached a peak early October. She was seen in the ED and had imaging as below. She started using a walker due to pain and a sense of instability. She upgraded to a walking stick eventually and is now walking without a device. She now has little to no pain but states her right leg gives out on her and feels wobbly. She has been having numbness along her right medial knee. She is falling ~once per week. Prior Treatments and Tests - R hip and lumbar spine x- rays at ED on 10/07/21. R hip image shows moderate OA. Lumbar spine image shows grade 1 anterolisthesis L4-L5 and L5-S1 and multilevel degenerative changes. 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 Treatment Goals Patient/Caregiver Goals Continue to walk without assistive device. Reduce falls frequency. Increase confidence in right leg. 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 Pt is very motivated to stay active. PT-OP-C Subjective Start: 12/08/21 13:16 Freq: Status: Active Protocol: Document 02/18/22 09:55 NBM (Rec: 02/18/22 10:34 NB [id number]) OP-PT Subjective Patient Comments Patient Comments Pt reports her knees hurt from getting boxes out for [employer]. She had a cold last week and didn't do exercises while sick. She did stairs instead of standing marching but going down the stairs is harder. PT-OP-D Balance Start: 12/08/21 13:16 Freq: Status: Active Protocol: Document 12/10/21 16:00 AW (Rec: 12/10/21 16:31 AW [id number]) Balance Tests Single Limb Standing Single Limb- Right 3 sec unsteady with UE support and + Trendelenberg Single Limb- Left 5 sec unsteady with UE support and + Trendelenberg PT-OP-E Functional Tests Start: 12/08/21 13:16 Freq: Status: Active Protocol: Document 12/10/21 16:00 AW (Rec: 12/10/21 16:31 AW [id number]) Functional Tests Dynamic Gait Index (DGI) Score 13 DGI Impairment Rating 40 to <60% Impaired (Score 10- 14) PT-OP-F Manual Assessment Start: 12/08/21 13:16 Freq: Status: Active Protocol: Document 12/10/21 16:00 AW (Rec: 12/10/21 16:39 AW [id number]) Manual Assessments Joint Mobility Assessment Joint Mobility Assessment Slight crepitus bilateral knees. Scour test negative in both hips. Good PA excursion in all lumbar segments. PT-OP-G Mobility & Gait Start: 12/08/21 13:16 Freq: Status: Active Protocol: Document 12/10/21 16:00 AW (Rec: 12/10/21 16:39 AW [id number]) OP Gait Assessment Comments Gait Comments Pt ambulates without device. She vaults over the right LE and has decreased RLE stance time. Right foot is excessively pronated and pt has reduced heelstrike bilaterally. Right hip in slight ER. Stair Climbing Evaluation Comments Stair Climbing Comments Step-to pattern with B rails. Pt does not need to navigate stairs in home environment but notes being extra cautious with patterning on curbs. PT-OP-H Neuro Start: 12/08/21 13:16 Freq: Status: Active Protocol: Document 12/10/21 16:00 AW (Rec: 12/10/21 16:39 AW [id number]) Sensation Evaluation Gross Sensation Gross Sensation Right LE Impaired Sensation Description Numbness Dermatome Impairments L4 Comments Summary Comments Numbness along right medial knee. Deep Tendon Reflex & Clonus Assessment Deep Tendon Reflex Bilateral Achilles Deep Tendon Reflex 0 Absent Bilateral Patellar Deep Tendon Reflex 1+ Diminished PT-OP-J Posture/Palpation/Skin Start: 12/08/21 13:16 Freq: Status: Active Protocol: Document 12/10/21 16:00 AW (Rec: 12/10/21 16:51 AW [id number]) Posture Evaluation Comments Posture Comments Pt has rightward curvature of the spine at T/L junction. Left iliac crest is slightly higher than right. PT-OP-K Range of Motion Start: 12/08/21 13:16 Freq: Status: Active Protocol: Document 12/10/21 16:00 AW (Rec: 12/10/21 16:51 AW [id number]) Hip Goniometric Range of Motion Hip bilat Hip ROM WFL Yes Comments HS lacking 15-20 degrees bilaterally in passive SLR. Tightness noted at end range IR R hip. IR:ER ratio is generally ~1:2. Hip ROM Limitations Hip ROM Limitations Soft Tissue Tightness,Pain Knee Goniometric Range of Motion Knee bilat Knee ROM WFL Yes PT-OP-L Special Tests Start: 12/08/21 13:16 Freq: Status: Active Protocol: Document 12/10/21 16:00 AW (Rec: 12/10/21 16:51 AW [id number]) Special Tests Lumbar Spine Special Tests Straight Leg Raise Test Results Pt unable to lift RLE without using UE's. LLE SLR is WNL. PT-OP-M Strength Start: 12/08/21 13:16 Freq: Status: Active Protocol: Document 12/10/21 16:00 AW (Rec: 12/10/21 16:51 AW [id number]) Hip Strength Hip Manual Muscle Testing Left Flexion (L2) 4 Good Extension (S1) 4- Good- Abduction 4- Good- External Rotation 4+ Good+ Internal Rotation 4+ Good+ Right Flexion (L2) 3 Fair Extension (S1) 3+ Fair+ Abduction 3+ Fair+ External Rotation 4 Good Internal Rotation 4 Good Knee Strength Knee Manual Muscle Testing Left Flexion (S2) 4+ Good+ Extension (L3) 5 Normal Right Flexion (S2) 4- Good- Extension (L3) 4- Good- Ankle/Foot Strength Ankle and Foot Manual Muscle Testing Left Dorsiflexion (L4) 5 Normal Plantarflexion (S1) 4- Good- Right Dorsiflexion (L4) 4+ Good+ Plantarflexion (S1) 4- Good- PT-OP-Q Treatments Start: 12/08/21 13:16 Freq: Status: Active Protocol: Document 02/18/22 09:55 [facility] (Rec: 02/18/22 10:34 [facility] [id number]) Therapeutic Exercises Standing Exercises marching Standing Exercise Name HEP Equipment Used // bars, mirror Comments vc for level hips, slower pacing Other Exercises sit to stand Other Exercise Name sit to stand Reps/Minutes x10 Comments std ht chair Gait Training Gait Activity stairs Treatment Focus sequencing, hip rotation Comments Pt ascends recip w/o HOGSHEAD FILLER, descends w/o HOGSHEAD FILLER step to w/ excessive hip rotation. uneven surface gait Description cement, grass incline/decline, landscaping, stairs Device Used none Level of Assistance SBA- CGA PRN (uneven gravel/ landscaping), grass SBA Distance/Duration outside clinic Treatment Focus decrease waddling Comments cued postural alignment, arm swing, hip flexion; good stability over uneven surfaces . Neuro Re-Education Treatment Balance Activities corner balance Details corner balance - HEP Surface firm Equipment wall behind, chair in front Comments -NBOS/staggered/tandem EO and EC -NBOS/staggered/tandem head turn and nod EO -NBOS/staggered/tandem head turn and nod EC PT-OP-T Assessment and Plan Start: 12/08/21 13:16 Freq: Status: Active Protocol: Document 02/18/22 09:55 [facility] (Rec: 02/18/22 20:53 [facility] [id number]) Physical Therapy Assessment Assessment Summary Assessment Pt ascends stairs recip w/o HOGSHEAD FILLER, and descends w/o HOGSHEAD FILLER step to w/ hip L IR and R ER. Knee pain unchanged with changing sequencing of LE for descending. Hip rotation improves descending w/ one HOGSHEAD FILLER and cues for facing stairs directly. Pt's lateral sway w/ gait improves with arm swing focus and she demonstrates improved confidence w/ gait but slight apprehension descending stairs. Pt shows improved corner balance in narrow base of support EO/EC w / and w/o head nods/turns, but is challenged in tandem RLE back>LLE back. Pt will benefit from continued skilled therapeutic intervention. Physical Therapy Plan Frequency and Duration Frequency of Treatment 2x/Week Plan of Care Start Date 12/10/21 Plan of Care End Date 03/05/22 Therapeutic Interventions Therapeutic Interventions Aquatic Therapy,Balance Training,Gait Training,Home Exercise Program,Manual Therapy,Neuromuscular Re- education,Patient/Caregiver Education,Self-Care/Home Management,Soft Tissue Mobilization,Therapeutic Activities,Therapeutic Exercises Modalities Cold Pack/Ice Massage,Electric Stimulation,Hot Packs Next Visit Focus/Plan Next Note Type Treatment Note Next Visit Plan Gait inside/outside. Progress sit to stands as able with increased resistance; continue to work on eccentric control with pause at varying heights. Revisit step ups. Hurdles. Review static balance for HEP. Work on dynamic balance and gait in/outside clinic.
--- NOTE | 2022-02-20 09:49 | PT.OTN ---
Current Diagnoses Difficulty in walking, not elsewhere classified (02/20/22) Repeated falls (02/20/22) Physical Therapy Treatment Note PT-OP-A Visit Information Start: 12/08/21 13:16 Freq: Status: Active Protocol: Document 02/20/22 08:46 AW (Rec: 02/20/22 09:49 AW [id number]) Out-Patient Physical Therapy Visit Information Visit Information Visit Type Treatment Note Visit Start Time 09:00 Visit Stop Time 09:45 Total Visit Minutes 45 Visit Number 14/19 to KX PT-OP-B Current Condition Start: 12/08/21 13:16 Freq: Status: Active Protocol: Document 12/10/21 16:00 AW (Rec: 12/08/21 13:28 AW [id number]) Current Condition History of Current Condition Onset Date September 2021 Current Complaints R leg feels unsteady, gives out History of Current Condition Susana Lambert) lives at [facility] with her . 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 Susana started having R hip and low back pain in September which reached a peak early October. She was seen in the ED and had imaging as below. She started using a walker due to pain and a sense of instability. She upgraded to a walking stick eventually and is now walking without a device. She now has little to no pain but states her right leg gives out on her and feels wobbly. She has been having numbness along her right medial knee. She is falling ~once per week. Prior Treatments and Tests - R hip and lumbar spine x- rays at ED on 10/07/21. R hip image shows moderate OA. Lumbar spine image shows grade 1 anterolisthesis L4-L5 and L5-S1 and multilevel degenerative changes. 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 Treatment Goals Patient/Caregiver Goals Continue to walk without assistive device. Reduce falls frequency. Increase confidence in right leg. 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 Pt is very motivated to stay active. PT-OP-C Subjective Start: 12/08/21 13:16 Freq: Status: Active Protocol: Document 02/20/22 08:46 AW (Rec: 02/20/22 09:49 AW [id number]) OP-PT Subjective Patient Comments Patient Comments Pt has sore knees, feels she worked really hard on Thursday. Is feeling stronger overall and is happy with changes in her walking Patient Reported Progress Improving PT-OP-D Balance Start: 12/08/21 13:16 Freq: Status: Active Protocol: Document 12/10/21 16:00 AW (Rec: 12/10/21 16:31 AW [id number]) Balance Tests Single Limb Standing Single Limb- Right 3 sec unsteady with UE support and + Trendelenberg Single Limb- Left 5 sec unsteady with UE support and + Trendelenberg PT-OP-E Functional Tests Start: 12/08/21 13:16 Freq: Status: Active Protocol: Document 12/10/21 16:00 AW (Rec: 12/10/21 16:31 AW [id number]) Functional Tests Dynamic Gait Index (DGI) Score 13 DGI Impairment Rating 40 to <60% Impaired (Score 10- 14) PT-OP-F Manual Assessment Start: 12/08/21 13:16 Freq: Status: Active Protocol: Document 12/10/21 16:00 AW (Rec: 12/10/21 16:39 AW [id number]) Manual Assessments Joint Mobility Assessment Joint Mobility Assessment Slight crepitus bilateral knees. Scour test negative in both hips. Good PA excursion in all lumbar segments. PT-OP-G Mobility & Gait Start: 12/08/21 13:16 Freq: Status: Active Protocol: Document 12/10/21 16:00 AW (Rec: 12/10/21 16:39 AW [id number]) OP Gait Assessment Comments Gait Comments Pt ambulates without device. She vaults over the right LE and has decreased RLE stance time. Right foot is excessively pronated and pt has reduced heelstrike bilaterally. Right hip in slight ER. Stair Climbing Evaluation Comments Stair Climbing Comments Step-to pattern with B rails. Pt does not need to navigate stairs in home environment but notes being extra cautious with patterning on curbs. PT-OP-H Neuro Start: 12/08/21 13:16 Freq: Status: Active Protocol: Document 12/10/21 16:00 AW (Rec: 12/10/21 16:39 AW [id number]) Sensation Evaluation Gross Sensation Gross Sensation Right LE Impaired Sensation Description Numbness Dermatome Impairments L4 Comments Summary Comments Numbness along right medial knee. Deep Tendon Reflex & Clonus Assessment Deep Tendon Reflex Bilateral Achilles Deep Tendon Reflex 0 Absent Bilateral Patellar Deep Tendon Reflex 1+ Diminished PT-OP-J Posture/Palpation/Skin Start: 12/08/21 13:16 Freq: Status: Active Protocol: Document 12/10/21 16:00 AW (Rec: 12/10/21 16:51 AW [id number]) Posture Evaluation Comments Posture Comments Pt has rightward curvature of the spine at T/L junction. Left iliac crest is slightly higher than right. PT-OP-K Range of Motion Start: 12/08/21 13:16 Freq: Status: Active Protocol: Document 12/10/21 16:00 AW (Rec: 12/10/21 16:51 AW [id number]) Hip Goniometric Range of Motion Hip bilat Hip ROM WFL Yes Comments HS lacking 15-20 degrees bilaterally in passive SLR. Tightness noted at end range IR R hip. IR:ER ratio is generally ~1:2. Hip ROM Limitations Hip ROM Limitations Soft Tissue Tightness,Pain Knee Goniometric Range of Motion Knee bilat Knee ROM WFL Yes PT-OP-L Special Tests Start: 12/08/21 13:16 Freq: Status: Active Protocol: Document 12/10/21 16:00 AW (Rec: 12/10/21 16:51 AW [id number]) Special Tests Lumbar Spine Special Tests Straight Leg Raise Test Results Pt unable to lift RLE without using UE's. LLE SLR is WNL. PT-OP-M Strength Start: 12/08/21 13:16 Freq: Status: Active Protocol: Document 12/10/21 16:00 AW (Rec: 12/10/21 16:51 AW [id number]) Hip Strength Hip Manual Muscle Testing Left Flexion (L2) 4 Good Extension (S1) 4- Good- Abduction 4- Good- External Rotation 4+ Good+ Internal Rotation 4+ Good+ Right Flexion (L2) 3 Fair Extension (S1) 3+ Fair+ Abduction 3+ Fair+ External Rotation 4 Good Internal Rotation 4 Good Knee Strength Knee Manual Muscle Testing Left Flexion (S2) 4+ Good+ Extension (L3) 5 Normal Right Flexion (S2) 4- Good- Extension (L3) 4- Good- Ankle/Foot Strength Ankle and Foot Manual Muscle Testing Left Dorsiflexion (L4) 5 Normal Plantarflexion (S1) 4- Good- Right Dorsiflexion (L4) 4+ Good+ Plantarflexion (S1) 4- Good- PT-OP-Q Treatments Start: 12/08/21 13:16 Freq: Status: Active Protocol: Document 02/20/22 08:46 AW (Rec: 02/20/22 09:49 AW [id number]) Gym Equipment Shuttle Balance 1 Details red Reps/Duration 10 Comments NBOS EO with vertical and horizontal head turns - A/P and M/L Sport Cord fwd/bwd Exercise Details f/b Cord/Resistance yellow Comments focus on posterior chain/ pushoff Therapeutic Exercises Standing Exercises marching Standing Exercise Name HEP Equipment Used // bars, mirror Comments vc for level hips, slower pacing step up/down Standing Exercise Name step up: fwd, lateral Side bilateral Resistance 6 step Equipment Used light UE support on // Reps/Minutes x10 Comments cued weight shift over stance leg, glute drive Other Exercises sit to stand Other Exercise Name sit to stand Equipment Used TB2 at knees Reps/Minutes x10 Comments std ht chair; 3 sec pause before bottom Gait Training Gait Activity posterior chain awareness Description posterior chain awareness Comments With and without mirror, focusing on glute firing/push off. Improved fwd translation especially with cueing for arm swing. stairs Treatment Focus sequencing, hip rotation Comments ascend and descend with unilateral rail. improved forward translation BLE. PT-OP-T Assessment and Plan Start: 12/08/21 13:16 Freq: Status: Active Protocol: Document 02/20/22 08:46 AW (Rec: 02/20/22 09:49 AW [id number]) Physical Therapy Assessment Goals Three Impairment impaired dynamic balance Steam Hoist Operator Goal (LTG) Pt will improve DGI score from 13 to 19/24 or greater as a measure of improved balance and reduced falls risk. 01/09/22 - Pt scores 17/24 today. LTG Duration 03/05/22 Two Impairment RLE weakness Short Term Goal (STG) Pt will demonstrate single leg stance at least 10 seconds each leg without UE support and without excessive shear. STG Duration 01/21/22 Steam Hoist Operator Goal (LTG) Pt will demonstrate single leg stance at least 20 seconds each leg without UE support and without excessive shear. LTG Duration 03/05/22 One Impairment lacks HEP Short Term Goal (STG) Pt will be instructed in HEP for hip mobility and LE strength to support therapy services provided in clinic 12/16/21: added self STMs w/ rolling pin, chris stretch, hip abd on side, STS, supine stretches, BKFO. STG Duration 01/21/22 progressing 12/16/21 Steam Hoist Operator Goal (LTG) Susana will be independent with HEP for hip mobility, LE strength, and balance to manage her symptoms LTG Duration 03/05/22 Assessment Summary Assessment Improved stability on stairs. Pt has good awareness of pushoff in gait and has decreased lateral lean. Physical Therapy Plan Frequency and Duration Frequency of Treatment 2x/Week Plan of Care Start Date 12/10/21 Plan of Care End Date 03/05/22 Therapeutic Interventions Therapeutic Interventions Aquatic Therapy,Balance Training,Gait Training,Home Exercise Program,Manual Therapy,Neuromuscular Re- education,Patient/Caregiver Education,Self-Care/Home Management,Soft Tissue Mobilization,Therapeutic Activities,Therapeutic Exercises Modalities Cold Pack/Ice Massage,Electric Stimulation,Hot Packs Next Visit Focus/Plan Next Note Type Treatment Note Next Visit Plan Gait inside/outside. Progress sit to stands as able with increased resistance; continue to work on eccentric control with pause at varying heights. Revisit step ups. Hurdles. Review static balance for HEP. Work on dynamic balance and gait in/outside clinic.
--- NOTE | 2022-02-25 10:28 | PT.OTN ---
Current Diagnoses Difficulty in walking, not elsewhere classified (02/25/22) Repeated falls (02/25/22) Physical Therapy Treatment Note PT-OP-A Visit Information Start: 12/08/21 13:16 Freq: Status: Active Protocol: Document 02/25/22 08:47 AW (Rec: 02/25/22 10:28 AW [id number]) Out-Patient Physical Therapy Visit Information Visit Information Visit Type Discharge Summary Visit Start Time 09:45 Visit Stop Time 10:24 Total Visit Minutes 39 Visit Number 15 to KX Evaluation Information Evaluation Date 12/10/21 PT-OP-B Current Condition Start: 12/08/21 13:16 Freq: Status: Active Protocol: Document 12/10/21 16:00 AW (Rec: 12/08/21 13:28 AW [id number]) Current Condition History of Current Condition Onset Date September 2021 Current Complaints R leg feels unsteady, gives out History of Current Condition Susana Lambert) lives at [facility] with her . 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 Susana started having R hip and low back pain in September which reached a peak early October. She was seen in the ED and had imaging as below. She started using a walker due to pain and a sense of instability. She upgraded to a walking stick eventually and is now walking without a device. She now has little to no pain but states her right leg gives out on her and feels wobbly. She has been having numbness along her right medial knee. She is falling ~once per week. Prior Treatments and Tests - R hip and lumbar spine x- rays at ED on 10/07/21. R hip image shows moderate OA. Lumbar spine image shows grade 1 anterolisthesis L4-L5 and L5-S1 and multilevel degenerative changes. 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 Treatment Goals Patient/Caregiver Goals Continue to walk without assistive device. Reduce falls frequency. Increase confidence in right leg. 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 Pt is very motivated to stay active. PT-OP-C Subjective Start: 12/08/21 13:16 Freq: Status: Active Protocol: Document 02/25/22 08:47 AW (Rec: 02/25/22 10:28 AW [id number]) OP-PT Subjective Patient Comments Patient Comments Getting better all the time in terms of hip and back. Left knee continues to bother her more. PT-OP-D Balance Start: 12/08/21 13:16 Freq: Status: Active Protocol: Document 12/10/21 16:00 AW (Rec: 12/10/21 16:31 AW [id number]) Balance Tests Single Limb Standing Single Limb- Right 3 sec unsteady with UE support and + Trendelenberg Single Limb- Left 5 sec unsteady with UE support and + Trendelenberg PT-OP-E Functional Tests Start: 12/08/21 13:16 Freq: Status: Active Protocol: Document 12/10/21 16:00 AW (Rec: 12/10/21 16:31 AW [id number]) Functional Tests Dynamic Gait Index (DGI) Score 13 DGI Impairment Rating 40 to <60% Impaired (Score 10- 14) PT-OP-F Manual Assessment Start: 12/08/21 13:16 Freq: Status: Active Protocol: Document 12/10/21 16:00 AW (Rec: 12/10/21 16:39 AW [id number]) Manual Assessments Joint Mobility Assessment Joint Mobility Assessment Slight crepitus bilateral knees. Scour test negative in both hips. Good PA excursion in all lumbar segments. PT-OP-G Mobility & Gait Start: 12/08/21 13:16 Freq: Status: Active Protocol: Document 12/10/21 16:00 AW (Rec: 12/10/21 16:39 AW [id number]) OP Gait Assessment Comments Gait Comments Pt ambulates without device. She vaults over the right LE and has decreased RLE stance time. Right foot is excessively pronated and pt has reduced heelstrike bilaterally. Right hip in slight ER. Stair Climbing Evaluation Comments Stair Climbing Comments Step-to pattern with B rails. Pt does not need to navigate stairs in home environment but notes being extra cautious with patterning on curbs. PT-OP-H Neuro Start: 12/08/21 13:16 Freq: Status: Active Protocol: Document 12/10/21 16:00 AW (Rec: 12/10/21 16:39 AW [id number]) Sensation Evaluation Gross Sensation Gross Sensation Right LE Impaired Sensation Description Numbness Dermatome Impairments L4 Comments Summary Comments Numbness along right medial knee. Deep Tendon Reflex & Clonus Assessment Deep Tendon Reflex Bilateral Achilles Deep Tendon Reflex 0 Absent Bilateral Patellar Deep Tendon Reflex 1+ Diminished PT-OP-J Posture/Palpation/Skin Start: 12/08/21 13:16 Freq: Status: Active Protocol: Document 12/10/21 16:00 AW (Rec: 12/10/21 16:51 AW [id number]) Posture Evaluation Comments Posture Comments Pt has rightward curvature of the spine at T/L junction. Left iliac crest is slightly higher than right. PT-OP-K Range of Motion Start: 12/08/21 13:16 Freq: Status: Active Protocol: Document 12/10/21 16:00 AW (Rec: 12/10/21 16:51 AW [id number]) Hip Goniometric Range of Motion Hip bilat Hip ROM WFL Yes Comments HS lacking 15-20 degrees bilaterally in passive SLR. Tightness noted at end range IR R hip. IR:ER ratio is generally ~1:2. Hip ROM Limitations Hip ROM Limitations Soft Tissue Tightness,Pain Knee Goniometric Range of Motion Knee bilat Knee ROM WFL Yes PT-OP-L Special Tests Start: 12/08/21 13:16 Freq: Status: Active Protocol: Document 12/10/21 16:00 AW (Rec: 12/10/21 16:51 AW [id number]) Special Tests Lumbar Spine Special Tests Straight Leg Raise Test Results Pt unable to lift RLE without using UE's. LLE SLR is WNL. PT-OP-M Strength Start: 12/08/21 13:16 Freq: Status: Active Protocol: Document 12/10/21 16:00 AW (Rec: 12/10/21 16:51 AW [id number]) Hip Strength Hip Manual Muscle Testing Left Flexion (L2) 4 Good Extension (S1) 4- Good- Abduction 4- Good- External Rotation 4+ Good+ Internal Rotation 4+ Good+ Right Flexion (L2) 3 Fair Extension (S1) 3+ Fair+ Abduction 3+ Fair+ External Rotation 4 Good Internal Rotation 4 Good Knee Strength Knee Manual Muscle Testing Left Flexion (S2) 4+ Good+ Extension (L3) 5 Normal Right Flexion (S2) 4- Good- Extension (L3) 4- Good- Ankle/Foot Strength Ankle and Foot Manual Muscle Testing Left Dorsiflexion (L4) 5 Normal Plantarflexion (S1) 4- Good- Right Dorsiflexion (L4) 4+ Good+ Plantarflexion (S1) 4- Good- PT-OP-Q Treatments Start: 12/08/21 13:16 Freq: Status: Active Protocol: Document 02/25/22 08:47 AW (Rec: 02/25/22 10:28 AW [id number]) Cardio Equipment Recumbent Bicycle Duration (Minutes) 5 Resistance 5 Seat Position 1 Therapeutic Exercises Standing Exercises marching Standing Exercise Name HEP Equipment Used // bars, mirror Comments vc for level hips, slower pacing SLS Standing Exercise Name SLS- HEP reviewed Side bilateral Equipment Used near rail Reps/Minutes 12-15 sec reps; RLE more stable Comments improvement in self corrections step up/down Standing Exercise Name step up: fwd, lateral Side bilateral Resistance 6 step Equipment Used light UE support on // Reps/Minutes x10 Comments cued weight shift over stance leg, glute drive Other Exercises sit to stand Other Exercise Name sit to stand Equipment Used TB2 at knees Reps/Minutes x10 Comments std ht chair; 3 sec pause before bottom Gait Training Gait Activity DGI Description DGI Device Used none Level of Assistance IND Comments . See copy scanned to EMR Neuro Re-Education Treatment Balance Activities hurdles Details 5 6 hurdles Surface firm Equipment // bars Reps/Duration x4 Comments improved fwd translation B knees; no lateral whip tandem stance Details tandem stance, stride stance Surface firm Equipment // prn Comments -Progressed to tandem walking with // fingertip support. -Stride stance on foam PT-OP-T Assessment and Plan Start: 12/08/21 13:16 Freq: Status: Active Protocol: Document 02/25/22 08:47 AW (Rec: 02/25/22 10:28 AW [id number]) Physical Therapy Assessment Goals Three Impairment impaired dynamic balance Professor Of Journalism Goal (LTG) Pt will improve DGI score from to 19 or greater as a measure of improved balance and reduced falls risk. 01/09/22 - Pt scores 17/24 today. 02/25/22 - Pt scores 23/24 LTG Duration 03/05/22 Two Impairment RLE weakness Short Term Goal (STG) Pt will demonstrate single leg stance at least 10 seconds each leg without UE support and without excessive shear. 02/25/22 - 12-15 sec with some unsteadiness. Much improved STG Duration 01/21/22 Professor Of Journalism Goal (LTG) Pt will demonstrate single leg stance at least 20 seconds each leg without UE support and without excessive shear. 02/25/22 PROGRESSING LTG Duration 03/05/22 One Impairment lacks HEP Short Term Goal (STG) Pt will be instructed in HEP for hip mobility and LE strength to support therapy services provided in clinic 12/16/21: added self STMs w/ rolling pin, chris stretch, hip abd on side, STS, supine stretches, BKFO. STG Duration 01/21/22 progressing 12/16/21 [facility]cf Goal (LTG) Susana will be independent with HEP for hip mobility, LE strength, and balance to manage her symptoms 02/25/22 GOAL MET LTG Duration 03/05/22 Assessment Summary Assessment Pt met her STG for single leg stance and progressed toward LTG. She exceeded her goal for Dynamic Gait Index. She is independent with her HEP. Appropriate for discharge. Physical Therapy Plan Therapeutic Interventions Therapeutic Interventions Aquatic Therapy,Balance Training,Gait Training,Home Exercise Program,Manual Therapy,Neuromuscular Re- education,Patient/Caregiver Education,Self-Care/Home Management,Soft Tissue Mobilization,Therapeutic Activities,Therapeutic Exercises Modalities Cold Pack/Ice Massage,Electric Stimulation,Hot Packs Discharge Physical Therapy Discharge Reasons Goals Met Discharge Comments Pt progressed well in single leg stance goal and exceeded her goal for DGI. She has improved her confidence with gait which is more stable with less deviations than at evaluation. Pt and PT agree she is ready for discharge. Left knee pain has been a factor in Susana's rehab and she is encouraged to seek a new referral if it becomes more disruptive functionally.
== END 2022-03-05 11:48 | disposition home or self-care (01) ==
LOC: PHYS 09:45
PROVIDERS: PCP Family Medicine; Referring Provider Family Medicine; Visit Provider Family Medicine
DX: R29.6 Repeated falls (principal); R26.2 Difficulty in walking, not elsewhere classified
CPT/HCPCS: 97110; 97112; 97116; 97140; 97162; 97535

== ENCOUNTER → 2024-12-13 16:06 | Outpatient (CLI) | payer MEDICARE, OTHER, SELFPAY ==
--- NOTE | 2024-12-13 16:09 | DI.ECHO.S_ITS ---
[place] [facility] : : [address] : : [place] : : [id number] : : Phone: [phone] Echocardiogram Report + + :Name: KEYLA MAYA Study Date: 12/13/2024 Height: 62 in : :[facility] ReadingLocation: Weight: 160 lb : : Gender: Female BSA: 1.7 m2 : :: 1940 Age: 84 yrs BP: 122/73 mmHg: :Reason For Study: Shortness of breath, Cardiomegaly : :Ordering Physician: SUKUMAR, : :FIDENCIO Performed By: Robert Mann : :Referring: FIDENCIO PATINO : + + Interpretation Summary The ejection fraction is estimated to be 65-70%. Normal diastolic function. The right ventricle is normal in size and function. There is mild tricuspid regurgitation. The right ventricular systolic pressure is estimated to be at least 31 mmHg based on an estimated right atrial pressure of 3 mm Hg. Procedure: A two-dimensional transthoracic echocardiogram with color flow and Doppler was performed. The study quality was technically adequate. There is no prior echocardiogram noted for this patient. The patient was in normal sinus rhythm during the exam. Left Ventricle: The left ventricle is normal in size and wall thickness. Left ventricular systolic function is normal. The ejection fraction is estimated to be 65-70%. There are no focal wall motion abnormalities. Normal diastolic function. Right Ventricle: The right ventricle is normal in size and function. Atria: The left atrial size is normal. Right atrial size is normal. There is no Doppler evidence for an interatrial shunt. Mitral Valve: The mitral valve leaflets appear to open well. There is no mitral valve stenosis. There is trace mitral regurgitation. Aortic Valve: The aortic valve is trileaflet. The aortic valve is slightly calcified. There is no aortic valve stenosis. There is trace aortic regurgitation. Tricuspid Valve: The tricuspid valve is not well visualized, but is grossly normal. There is mild tricuspid regurgitation. The right ventricular systolic pressure is estimated to be at least 31 mmHg based on an estimated right atrial pressure of 3 mm Hg. Pulmonic Valve: The pulmonic valve is not well seen, but is grossly normal. There is trace pulmonic regurgitation. Great Vessels: The aortic root is normal size. The ascending aorta is normal in size. The aortic arch could not be visualized. The IVC is of normal diameter and collapses greater than 50% with a sniff. This suggests a low right atrial pressure of 3 mm Hg. Pericardium/ Pleura There is no pericardial effusion. MMode/2D Measurements & Calculations LVIDd: 4.0 cm LVOT diam: 2.1 cm LVIDs: 2.5 cm Ao root diam: 2.9 cm FS: 38.6 % asc Aorta Diam: 3.3 cm IVSd: 0.87 cm LVPWd: 0.95 cm LV guerrero. diameter/BSA (cm/m^2): 2.3 LV sys. diameter/BSA (cm/m^2): 1.4 LA A2 area: 16.5 cm2 RA long axis: 5.3 cm LA A4 area: 15.5 cm2 RA area: 13.2 cm2 LA length (vol): 4.8 cm RA vol: 28.3 ml LA vol: 45.0 ml RA : 16.3 ml/m2 LA vol index: 25.9 ml/m2 IVC diam: 1.6 cm TAPSE: 1.9 cm Doppler Measurements & Calculations Ao V2 max: 140.0 cm/sec LVOT Max Patrick: 109.4 cm/sec Ao V2 mean: 97.8 cm/sec LV V1 max P.8 mmHg Ao max P.8 mmHg LV V1 VTI: 24.1 cm Ao mean P.3 mmHg FRED(I,D): 2.8 cm2 Ao V2 VTI: 28.8 cm FRED(V,D): 2.6 cm2 sev ratio: 0.84 FRED indexed to BSA (cm^2/m^2): 1.6 MV E max patrick: 97.1 cm/sec TR max patrick: 262.6 cm/sec MV A max patrick: 115.0 cm/sec TR max P.6 mmHg MV E/A: 0.84 PA V2 max: 99.8 cm/sec Med Peak E' Patrick: 6.6 cm/sec PA V2 mean: 63.3 cm/sec E/E' med: 14.7 PA mean P.9 mmHg Lat Peak E' Patrick: 11.1 cm/sec PA pr(Accel): 48.2 mmHg E/E' lat: 8.7 E/e' average: 11.7 MV dec time: 0.21 sec SV([facility]): 79.7 ml Reading Physician:07:39 PM
== END ==
PROVIDERS: PCP Family Medicine; Referring Provider Family Medicine; Visit Provider Family Medicine
DX: I07.1 Rheumatic tricuspid insufficiency (principal); R06.09 Other forms of dyspnea
CPT/HCPCS: 93306